=== PATIENT | male | born 1975 | race Caucasian/White ===

== ENCOUNTER 2022-07-13 09:16 | Observation (INO) | payer OTHER ==
[2022-07-13] MEDS ORDERED: SODIUM CHLORIDE 0.9% 500 ML 500 ML IV STA (09:18)
--- NOTE | 2022-07-13 09:28 | ED ---
General Adult HPI - General Stated complaint: Dizziness Time Seen by Provider: 07/13/22 09:16 Source: patient, RN notes reviewed, old records reviewed - History of Present Illness Initial comments: This is a 46-year-old male with past medical history significant for high blood pressure and family history is very strong for coronary artery disease. Patient states he got this morning felt very dizzy and nauseated he eventually went back to bed when he got up later he had it again and he decided to go get checked out by his primary medical care doctor and they noted that he was in bigeminy in that he was only having the irregular QRS complexes perfuse and they believe that this could be leading to his lightheadedness. Patient denies any chest pain or palpitations. Patient denies any difficulty breathing shortest breath. - Related Data Allergies Allergy/AdvReac Type Severity Reaction Status Date / Time No Known Allergies Allergy Verified 07/13/22 09:25 Review of Systems ROS Statement: Those systems with pertinent positive or pertinent negative responses have been documented in the HPI. ROS Other: All systems not noted in ROS Statement are negative. General Exam - General Exam Comments Initial Comments: GENERAL: Patient is well-developed and well-nourished. Patient is nontoxic and well- hydrated and is in mild distress. ENT: Neck is soft and supple. No significant lymphadenopathy is noted. Oropharynx is clear. Moist mucous membranes. Neck has full range of motion without eliciting any pain. EYES: The sclera were anicteric and conjunctiva were pink and moist. Extraocular movements were intact and pupils were equal round and reactive to light. Eyelids were unremarkable. PULMONARY: Unlabored respirations. Good breath sounds bilaterally. No audible rales rhonchi or wheezing was noted. CARDIOVASCULAR: Patient is bradycardic at about 40 beats a minute ABDOMEN: Soft and nontender with normal bowel sounds. SKIN: Skin is clear with no lesions or rashes and otherwise unremarkable. NEUROLOGIC: Patient is alert and oriented x3. Cranial nerves II through XII are grossly intact. Motor and sensory are also intact. Normal speech, volume and content. Symmetrical smile. MUSCULOSKELETAL: Normal extremities with adequate strength and full range of motion. Patient has bilateral 1+ edema LYMPHATICS: No significant lymphadenopathy is noted PSYCHIATRIC: Normal psychiatric evaluation. Course Vital Signs 07/13/22 07/13/22 09:18 09:26 Temperature 98.2 F Pulse Rate 44 L Pulse Rate [ 42 L Left Sitting Radial] Respiratory 18 Rate Blood Pressure 163/82 O2 Sat by Pulse 98 Oximetry Medical Decision Making - Medical Decision Making EKG was interpreted by myself EKG shows sinus rhythm with bigeminy pattern at 84 bpm TX interval is 143 QRS is 97 QT interval 351 QTC is 392. Was pt. sent in by a medical professional or institution (, [employer], CLAIM REPRESENTATIVE, urgent care, hospital, or residential...) When possible be specific @ -Patient was sent in by his primary medical care doctor's office Did you speak to anyone other than the patient for history (EMS, parent, family, police, friend...)? What history was obtained from this source @ -No Did you review nursing and triage notes (agree or disagree)? Why? @ -I reviewed and agree with nursing and triage notes Were old charts reviewed (outside hosp., previous admission, EMS record, old EKG , old radiological studies, urgent care reports/EKG's, residential records)? Report findings @ -I reviewed prior charts on this patient as well as prior lab work and radiological studies Differential Diagnosis (chest pain, altered mental status, abdominal pain women, abdominal pain men, vaginal bleeding, weakness, fever, dyspnea, syncope, headache, dizziness, GI bleed, back pain, seizure, CVA, palpatations, mental health, musculoskeletal)? @ -Differential Dizziness: Benign paroxysmal positional Vertigo, Menieres disease, otitis media, acoustic neuroma, vertebrobasilar insufficiency, cerebellar stroke, encephalitis, hypovolemic, arrhythmia, coronary artery syndrome, anemia, this is not meant to be an all-inclusive list EKG interpreted by me (3pts min.). @ -As above X-rays interpreted by me (1pt min.). @ -Ray was interpreted by myself I saw no acute abnormalities CT interpreted by me (1pt min.). @ -None done U/S interpreted by me (1pt. min.). @ -None done What testing was considered but not performed or refused? (CT, X-rays, U/S, labs)? Why? @ -None What meds were considered but not given or refused? Why? @ -None Did you discuss the management of the patient with other professionals (professionals i.e. , [employer], CLAIM REPRESENTATIVE, lab, RT, psych nurse, social worker health services, link trainer, teacher, air intelligence officer, welfare case worker)? Give summary @ -Spoke with Dr. Segura and he agreed to admit the patient. Was smoking cessation discussed for >3mins.? @ -No Was critical care preformed (if so, how long)? @ -No Were there social determinants of health that impacted care today? How? (Homelessness, low income, unemployed, alcoholism, drug addiction, transportation, low edu. Level, literacy, decrease access to med. care, senior care, rehab)? @ -No Was there de-escalation of care discussed even if they declined (Discuss DNR or withdrawal of care, Hospice)? DNR status @ -No What co-morbidities impacted this encounter? (DM, HTN, Smoking, COPD, CAD, Cancer, CVA, ARF, Chemo, Hep., AIDS, mental health diagnosis, sleep apnea, morbid obesity)? @ -None Was patient admitted / discharged? Hospital course, mention meds given and route, prescriptions, significant lab abnormalities, going to OR and other pertinent info. @ -She remained in bigeminy throughout his ED course. I was unable to palpate the PVCs in between the normal rhythm and so is affective heart rate was about 40. I spoke with Dr. Fischer and he agreed to admit the patient. I wrote admitting orders. I consulted cardiology. Undiagnosed new problem with uncertain prognosis? @ -No Drug Therapy requiring intensive monitoring for toxicity (Heparin, Nitro, Insulin, Cardizem)? @ -No Were any procedures done? @ -No Diagnosis/symptom? @ -Bigeminy Acute, or Chronic, or Acute on Chronic? @ -Acute Uncomplicated (without systemic symptoms) or Complicated (systemic symptoms)? @ -Complicated Side effects of treatment? @ -No Exacerbation, Progression, or Severe Exacerbation? @ -No Poses a threat to life or bodily function? How? (Chest pain, USA, SD, pneumonia, PE, COPD, DKA, ARF, appy, cholecystitis, CVA, Diverticulitis, Homicidal, Suicidal, threat to staff... and all critical care pts) @ -Yes this could lead to syncope which could lead to significant injury. Diagnosis/symptom? @ -Near syncope Acute, or Chronic, or Acute on Chronic? @ -Acute Uncomplicated (without systemic symptoms) or Complicated (systemic symptoms)? @ -Complicated Side effects of treatment? @ -none Exacerbation, Progression, or Severe Exacerbation] @ -no Poses a threat to life or bodily function? @ -no - Lab Data Result diagrams: 07/13/22 09:29 07/13/22 09:29 Lab Results 07/13/22 07/13/22 07/13/22 Range/Units 09:29 09:29 09:29 WBC 4.8 (3.8-10.6) k/uL RBC 5.02 (4.30-5.90) m/uL Hgb 14.0 (13.0-17.5) gm/dL Hct 41.4 (39.0-53.0) % MCV 82.4 (80.0-100.0) fL MCH 27.9 (25.0-35.0) pg MCHC 33.9 (31.0-37.0) g/dL RDW 13.7 (11.5-15.5) % Plt Count 134 L (150-450) k/uL MPV 10.4 Neutrophils % 57 % Lymphocytes % 29 % Monocytes % 5 % Eosinophils % 6 % Basophils % 0 % Neutrophils # 2.7 (1.3-7.7) k/uL Lymphocytes # 1.4 (1.0-4.8) k/uL Monocytes # 0.3 (0-1.0) k/uL Eosinophils # 0.3 (0-0.7) k/uL Basophils # 0.0 (0-0.2) k/uL Sodium 139 (137-145) mmol/L Potassium 4.5 (3.5-5.1) mmol/L Chloride 107 (98-107) mmol/L Carbon Dioxide 20 L (22-30) mmol/L Anion Gap 12 mmol/L BUN 25 H (9-20) mg/dL Creatinine 0.87 (0.66-1.25) mg/dL Est GFR (CKD-EPI)AfAm >90 (>60 ml/min/1.73 sqM) Est GFR (CKD-EPI)NonAf >90 (>60 ml/min/1.73 sqM) Glucose 113 H (74-99) mg/dL Calcium 9.5 (8.4-10.2) mg/dL Magnesium 1.8 (1.6-2.3) mg/dL Total Bilirubin 0.7 (0.2-1.3) mg/dL AST 34 (17-59) U/L ALT 32 (4-49) U/L Alkaline Phosphatase 63 (38-126) U/L Troponin I <0.012 (0.000-0.034) ng/mL Total Protein 7.8 (6.3-8.2) g/dL Albumin 4.4 (3.5-5.0) g/dL TSH 2.030 (0.465-4.680) mIU/L Disposition Clinical Impression: Bigeminy, Near syncope Disposition: ADMITTED IP TO THIS HOSP Referrals: Rj Segura MD [Primary Care Provider] - 1-2 days Time of Disposition: 10:39
[2022-07-13 09:48] LABS: Basophils % (A) 0 %; Eosinophils # (A) 0.3 k/uL (0-0.7); Eosinophils % (A) 6 %; HCT 41.4 % (39.0-53.0); Lymphocytes # (A) 1.4 k/uL (1.0-4.8); Lymphocytes % (A) 29 %; MCH 27.9 pg (25.0-35.0); MCHC 33.9 g/dL (31.0-37.0); MCV 82.4 fL (80.0-100.0); Mean Platelet Volume 10.4; Monocytes # (A) 0.3 k/uL (0-1.0); Monocytes % (A) 5 %; Neutrophils # (A) 2.7 k/uL (1.3-7.7); Neutrophils % (A) 57 %; Platelet Count 134 k/uL (150-450); RBC 5.02 m/uL (4.30-5.90); RDW 13.7 % (11.5-15.5); WBC 4.8 k/uL (3.8-10.6)
[2022-07-13 09:55] LABS: ALT 32 U/L (4-49); AST 34 U/L (17-59); African American GFR (CKD) >90 (>60 ml/min/1.73 sqM); Albumin 4.4 g/dL (3.5-5.0); Alkaline Phosphatase 63 U/L (38-126); Anion Gap 12 mmol/L; Blood Urea Nitrogen 25 mg/dL (9-20); Calcium 9.5 mg/dL (8.4-10.2); Carbon Dioxide 20 mmol/L (22-30); Chloride 107 mmol/L (98-107); Glucose 113 mg/dL (74-99); Magnesium 1.8 mg/dL (1.6-2.3); Non-African American GFR(CKD) >90 (>60 ml/min/1.73 sqM); Potassium 4.5 mmol/L (3.5-5.1); Sodium 139 mmol/L (137-145); Total Bilirubin 0.7 mg/dL (0.2-1.3); Total Protein 7.8 g/dL (6.3-8.2)
--- NOTE | 2022-07-13 09:55 | XR ---
EXAMINATION TYPE: XR chest 2V DATE OF EXAM: 07/13/2022 COMPARISON: Chest x-ray March 28, 2011 HISTORY: Dysrhythmia. TECHNIQUE: Frontal and lateral views of the chest are obtained. FINDINGS: Diminished inspiration. There is no focal air space opacity, pleural effusion, or pneumoth orax seen. The cardiac silhouette size is now enlarged. The osseous structures are intact. IMPRESSION: Cardiomegaly without acute pulmonary process.
[2022-07-13 10:18] LABS: INR 0.9 (<1.2)
[2022-07-13] MEDS ORDERED: NITROGLYCERIN SL TABS 0.4 MG TAB SUBLINGUAL PRN (10:39)
[2022-07-13] MEDS ORDERED: METOPROLOL TARTRATE 5 MG/5 ML VIAL IVP STA (10:41)
[2022-07-13 10:58] LABS: Partial Thromboplastin Time 20.8 sec (22.0-30.0)
[2022-07-13 11:25] LABS: Amphetamine Screen,Urine Not Detected (NotDetected); Barbiturate Screen,Urine Not Detected (NotDetected); Benzodiazepines Screen,Urine Not Detected (NotDetected); Cocaine Screen,Urine Not Detected (NotDetected); Methadone Screen, Urine Not Detected (NotDetected); Opiate Screen,Urine Not Detected (NotDetected); Oxycodone Screen, Urine Not Detected (NotDetected); Phencyclidine Screen,Urine Not Detected (NotDetected); Tricyclic Antidepressant,Urine Not Detected (NotDetected); Urn Cannabinoid Scrn Not Detected (NotDetected)
[2022-07-13] MEDS: LOSARTAN 50 MG TAB PO SCH (15:45)
[2022-07-13] MEDS: CICLOPIROX TOPICAL SCH (15:46)
[2022-07-13] MEDS: NAPROXEN 250 MG TAB PO SCH (21:37)
[2022-07-13] MEDS: PANTOPRAZOLE 40 MG TABLET PO SCH (21:38)
[2022-07-13] MEDS: CHLORTHALIDONE 25 MG TAB PO SCH (21:38)
[2022-07-14] MEDS: NAPROXEN 250 MG TAB PO SCH ×2 (08:06→20:34)
[2022-07-14] MEDS: PANTOPRAZOLE 40 MG TABLET PO SCH ×2 (08:06→20:34)
[2022-07-14] MEDS: LOSARTAN 50 MG TAB PO SCH (08:07)
[2022-07-14] MEDS: ASPIRIN 325 MG TAB PO SCH (08:07)
[2022-07-14] MEDS: amLODIPine 10 MG TAB PO SCH (08:07)
[2022-07-14 10:12] LABS: Chol/HDL Ratio 4.07 Ratio; LDL Cholesterol,Calculated 99.9 mg/dL (0.0-131.0)
--- NOTE | 2022-07-14 14:19 | P.CRDCN ---
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 Patient gives history that he developed dizziness and lightheadedness, nausea and headache yesterday morning. He went to the bathroom, the daughter about and he lay down when he went to get up he was feeling the same symptoms and checked his blood pressure was 195/145. He ended up getting on the bus and went to his primary care doctor's office and waited for them to open at 8 AM yesterday. He was found to have a blood pressure of 1 71 systolic and his EKG was abnormal with carlton and patient was sent over to [facility] emergency center for further evaluation where he was found to be in bigeminy on EKG, initial blood pressure 158/102, heart rate was running in the 40s to 80s. Patient states that about a month ago his amlodipine was increased to 10 mg and when he was in the office on his blood pres sure was high again and Dr. 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 EKG [facility] Chest x-ray: Cardiomegaly without acute pulmonary process Platelet count 139, WBC 4.8, hemoglobin 14. INR 0.9. Potassium 4.5, magnesium 1.8. Troponin negative 3. Triglycerides 123, cholesterol 165, HDL 40. Urine drug screen not detected. Creatinine 0.87. Home cardiac medications: Norvasc 10 mg daily Review Of Systems: At the time of my evaluation: Constitutional: No fever, no chills. No weakness, fatigue or lethargy. EENT: No headache. No dizziness. Lungs: No shortness of breath, cough, no sputum production. No wheezing. Cardiovascular: No chest pain, no lower extremity edema. No palpitations. No paroxysmal nocturnal dyspnea. No orthopnea. No lightheadedness or dizziness. No syncopal episodes. Abdominal: No abdominal pain. No nausea, vomiting. No diarrhea. No constipation. No bloody or tarry stools. Genitourinary: No dysuria.. No urinary retention. Musculoskeletal: No myalgias. No muscle weakness, no frequent falls. No back pain. No neck pain. Integumentary: No wounds. No rash. No unusual bruising. Neurologic: No aphasia. No facial droop. No change in mentation. No head injury. No headache. Physical examination: Gen: This is a obese 46-year-old male. He is resting in bed and appears to be comfortable and in no acute distress VS: reviewed HEENT: Head is atraumatic, normocephalic. Pupils equal, round. Sclerae is anicteric. NECK: Supple. No JVD. . LUNGS: Clear to auscultation. No wheezes or rhonchi. No intercostal retractions. HEART: Regular rate and rhythm. No murmur. ABDOMEN: Soft No tenderness. EXTREMITIES: No pedal edema. No calf tenderness. NEUROLOGICAL: Patient is awake, alert and oriented x3. Assessment: Near syncope PVCs Uncontrolled hypertension Plan: Continue patient's current blood pressure medications Obtain 2-D echocardiogram and Doppler study to assess cardiac structure and function If echocardiogram is within normal limits, patient is cleared for discharge home and may follow-up in the office for outpatient stress testing. Thank you kindly for this consultation. Nurse practitioner note has been reviewed, I agree with documented findings and plan of care. Patient was seen and examined. Past Medical History Past Medical History: GERD/Reflux, Hypertension Additional Past Medical History / Comment(s): Hematuria, lower back pain, anxiety, bigeminy rhythm on 07/13/22, History of Any Multi-Drug Resistant Organisms: None Reported Additional Past Surgical History / Comment(s): tooth extraction Past Anesthesia/Blood Transfusion Reactions: No Reported Reaction Past Psychological History: Anxiety Smoking Status: Former smoker Past Alcohol Use History: None Reported Past Drug Use History: None Reported - Past Family History Mother Family Medical History: Coronary Artery Disease (CAD), Diabetes Mellitus, Renal Disease Additional Family Medical History / Comment(s): CABG Father Family Medical History: Coronary Artery Disease (CAD) Additional Family Medical History / Comment(s): CABG Medications and Allergies Home Medications Medication Instructions Recorded Confirmed Type Chlorthalidone [Hygroton] 25 mg PO DIRECTED 07/13/22 07/13/22 History Ciclopirox 1 applic TOPICAL DIRECTED 07/13/22 07/13/22 History Cyclobenzaprine [Flexeril] 10 mg PO DIRECTED 07/13/22 07/13/22 History Losartan Potassium 50 mg PO DIRECTED 07/13/22 07/13/22 History Naproxen [Naprosyn] 500 mg PO BID 07/13/22 07/13/22 History Omeprazole [PriLOSEC] 20 mg PO BID 07/13/22 07/13/22 History amLODIPine [Norvasc] 10 mg PO DAILY 07/13/22 07/13/22 History Allergies Allergy/AdvReac Type Severity Reaction Status Date / Time blueberry Allergy Unknown Verified 07/13/22 11:32 grapefruit Allergy Unknown Verified 07/13/22 11:32 Physical Exam Vitals: Vital Signs Temp Pulse Pulse Resp BP BP Pulse Ox 07/14/22 08:07 97 07/14/22 08:00 98 F 77 18 149/76 99 07/14/22 03:00 98.4 F 69 18 124/84 98 07/14/22 02:35 72 18 113/50 07/14/22 00:42 66 16 114/65 07/13/22 23:00 68 19 147/82 07/13/22 20:00 97.9 F 74 20 164/100 97 07/13/22 18:26 98.0 F 81 18 125/75 97 07/13/22 17:00 73 18 97 07/13/22 15:42 68 18 127/80 95 07/13/22 14:24 73 18 129/86 97 07/13/22 12:52 79 18 139/79 97 07/13/22 12:20 89 18 120/90 99 07/13/22 11:25 84 18 158/102 96 FiO2 07/14/22 08:07 21 07/14/22 08:00 07/14/22 03:00 07/14/22 02:35 07/14/22 00:42 07/13/22 23:00 07/13/22 20:00 07/13/22 18:26 07/13/22 17:00 07/13/22 15:42 07/13/22 14:24 07/13/22 12:52 07/13/22 12:20 07/13/22 11:25 Intake and Output 07/13/22 07/14/22 07/14/22 22:59 06:59 14:59 Intake Total 118 Balance 118 Intake: Oral 118 Other: Weight 144.696 kg Results 07/13/22 09:29 07/13/22 09:29 Cardiac Enzymes 07/13/22 07/13/22 Range/Units 12:28 16:18 Troponin I <0.012 <0.012 (0.000-0.034) ng/mL Lipids 07/13/22 Range/Units 09:29 Triglycerides 123.00 (0.00-149.00) mg/dL Cholesterol 165.00 (0.00-200.00) mg/dL HDL Cholesterol 40.50 (40.00-60.00) mg/dL Cholesterol/HDL Ratio 4.07 Ratio Current Medications Generic Name Dose Route Start Last Admin Trade Name Freq PRN Reason Stop Dose Admin Amlodipine Besylate 10 mg 07/14/22 09:00 07/14/22 08:07 Amlodipine 10 Mg Tab PO 10 mg DAILY DEJAH Administration Aspirin 325 mg 07/14/22 09:00 07/14/22 08:07 Aspirin 325 Mg Tab PO 325 mg DAILY DEJAH Administration Chlorthalidone 25 mg 07/13/22 21:00 07/13/22 21:38 Chlorthalidone 25 Mg Tab PO 25 mg HS DEJAH Administration Losartan Potassium 50 mg 07/13/22 15:30 07/14/22 08:07 Losartan 50 Mg Tab PO 50 mg DAILY DEJAH Administration Naproxen 500 mg 07/13/22 21:00 07/14/22 08:06 Naproxen 250 Mg Tab PO 500 mg BID DEJAH Administration Nitroglycerin 0.4 mg 07/13/22 10:39 Nitroglycerin Sl Tabs 0.4 Mg Tab SUBLINGUAL Q5M PRN Chest Pain Patients Own ( 1 applic 07/13/22 15:30 07/13/22 15:46 Ciclopirox [ TOPICAL Not Given Ciclopirox] 6.6 Ml DIRECTED DEJAH Ml) Pantoprazole Sodium 40 mg 07/13/22 21:00 07/14/22 08:06 Pantoprazole 40 Mg Tablet PO 40 mg BID DEJAH Administration Intake and Output 07/13/22 07/14/22 07/14/22 22:59 06:59 14:59 Intake Total 118 Balance 118 Intake: Oral 118 Other: Weight 144.696 kg 07/13/22 09:29 07/13/22 09:29
[2022-07-14] MEDS: CICLOPIROX TOPICAL SCH (16:36)
[2022-07-14] MEDS: CHLORTHALIDONE 25 MG TAB PO SCH (20:34)
[2022-07-15] MEDS: NAPROXEN 250 MG TAB PO SCH ×2 (09:25→21:00)
[2022-07-15] MEDS: ASPIRIN 325 MG TAB PO SCH (09:25)
[2022-07-15] MEDS: LOSARTAN 50 MG TAB PO SCH (09:25)
[2022-07-15] MEDS: PANTOPRAZOLE 40 MG TABLET PO SCH ×2 (09:25→21:01)
[2022-07-15] MEDS: amLODIPine 10 MG TAB PO SCH (09:25)
--- NOTE | 2022-07-15 09:31 | CA ---
Transthoracic Echo Report Name: Russell Patel Age: 46 Gender: M : 1975 Exam Date: 07/14/2022 14:45 Exam Location: [facility] Ht (in): 76 Wt (lb): 320 Ordering Physician: Kristina Wall Attending/Referring Phys: [id number], [facility] Director Quality Systems Julia Lockhart RDCS Procedure CPT: Indications: LVF Cardiac Hx: Technical Quality: Technically difficult study Contrast 1: Lumason Total Dose (mL): Contrast 2: Total Dose (mL): MEASUREMENTS (Male / Female) Normal Values 2D ECHO LV Diastolic Diameter PLAX 6.7 cm 4.2 - 5.9 / 3.9 - 5.3 cm LV Systolic Diameter PLAX 5.4 cm IVS Diastolic Thickness 1.2 cm 0.6 - 1.0 / 0.6 - 0.9 cm LVPW Diastolic Thickness 1.1 cm 0.6 - 1.0 / 0.6 - 0.9 cm LV Relative Wall Thickness 0.3 RV Internal Dim ED PLAX 3.4 cm LA Systolic Diameter LX 4.3 cm 3.0 - 4.0 / 2.7 - 3.8 cm LV Diastolic Volume MOD BP 201.6 cm??? 67 - 155 / 56 - 104 cm??? LV Systolic Volume MOD BP 96.6 cm??? 22 - 58 / 19 - 49 cm??? LV Ejection Fraction MOD BP 52.1 % >= 55 % LV Diastolic Volume MOD 4C 225.1 cm??? LV Systolic Volume MOD 4C 132.5 cm??? LV Ejection Fraction MOD 4C 41.2 % LV Diastolic Length 4C 8.6 cm LV Systolic Length 4C 6.6 cm LV Diastolic Volume MOD 2C 180.1 cm??? LV Systolic Volume MOD 2C 67.7 cm??? LV Ejection Fraction MOD 2C 62.4 % LV Diastolic Length 2C 8.7 cm LV Systolic Length 2C 6.3 cm LA Volume 80.7 cm??? 18 - 58 / 22 - 52 cm??? M-MODE Aortic Root Diameter MM 3.1 cm MV E Point Septal Separation 1.6 cm AV Cusp Separation MM 2.5 cm DOPPLER AV Peak Velocity 189.2 cm/s AV Peak Gradient 14.3 mmHg AV Mean Velocity 136.7 cm/s AV Mean Gradient 8.6 mmHg AV Velocity Time Integral 37.2 cm MV Area PHT 2.5 cm??? Mitral E Point Velocity 86.0 cm/s Mitral A Point Velocity 97.6 cm/s Mitral E to A Ratio 0.9 MV Deceleration Time 305.0 ms MV E' Velocity 8.2 cm/s Mitral E to MV E' Ratio 10.5 TR Peak Velocity 231.1 cm/s TR Peak Gradient 21.4 mmHg Right Ventricular Systolic Press 26.4 mmHg FINDINGS Left Ventricle Left ventricular ejection fraction is estimated at 35-40 %. Mildly increased septal wall thickness. Moderately increased left ventricular diastolic diameter. Severely increased left ventricular diastolic volume. Severely increased left ventricular systolic volume. Moderatly decreased left ventricular ejection fraction. Right Ventricle Mild right ventricular dilatation. Right ventricular systolic pressure within normal limits. Right Atrium Right atrium not well visualized. Left Atrium Mildly increased left atrial diameter. Severely increased left atrial volume. Mildly increased left atrial area. Mitral Valve Structurally normal mitral valve. No mitral stenosis, regurgitation or prolapse. Aortic Valve Trileaflet aortic valve. Thickened aortic valve without stenosis. Tricuspid Valve Structurally normal tricuspid valve. Trace to mild tricuspid regurgitation. Pulmonic Valve Structurally normal pulmonic valve. Trace to mild pulmonic regurgitation. Pericardium Normal pericardium. No pericardial effusion. Aorta Normal size aortic root and proximal ascending aorta. CONCLUSIONS Moderate LV systolic dysfunction with an ejection fraction of 35-40% Dilated left atrium Previewed by: Dr. Hola Lott MD (Electronically Signed) Final Date: 15 Jul 2022 09:30
--- NOTE | 2022-07-15 13:49 | P.PN ---
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 Patient gives history that he developed dizziness and lightheadedness, nausea and headache yesterday morning. He went to the bathroom, the daughter about and he lay down when he went to get up he was feeling the same symptoms and checked his blood pressure was 195/145. He ended up getting on the bus and went to his primary care doctor's office and waited for them to open at 8 AM yesterday. He was found to have a blood pressure of 171 systolic and his EKG was abnormal with bigeminy and patient was sent over to [facility] emergency center for further evaluation where he was found to be in bigeminy on EKG, initial blood pressure 158/102, heart rate was r unning in the 40s to 80s. Patient states that about a month ago his amlodipine was increased to 10 mg and when he was in the office on his blood pressure was high again and Dr. 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 EKG bigeminy Chest x-ray: Cardiomegaly without acute pulmonary process Platelet count 139, WBC 4.8, hemoglobin 14. INR 0.9. Potassium 4.5, magnesium 1.8. Troponin negative 3. Triglycerides 123, cholesterol 165, HDL 40. Urine drug screen not detected. Creatinine 0.87. Home cardiac medications: Norvasc 10 mg daily 07/15 Patient is seen today in follow-up. He states he does not have any symptoms, no chest pain, shortness of breath, no lightheadedness or dizziness. He states he has been ambulating in his room. Telemetry is a sinus rhythm with continued episodes of bigeminy and one episode yesterday of trigeminy. Echocardiogram reveals EF of 35-40% with dilated LA. Physical examination: Gen: This is a obese 46-year-old male. He is resting in bed and appears to be comfortable and in no acute distress VS: reviewed HEENT: Head is atraumatic, normocephalic. Pupils equal, round. Sclerae is anicteric. NECK: Supple. No JVD. . LUNGS: Clear to auscultation. No wheezes or rhonchi. No intercostal retractions. HEART: Regular rate and rhythm. No murmur. ABDOMEN: Soft No tenderness. EXTREMITIES: No pedal edema. No calf tenderness. NEUROLOGICAL: Patient is awake, alert and oriented x3. Assessment: Near syncope PVCs, bigeminy Reduced ejection fraction of 35-40% and dilated LA Uncontrolled hypertension Plan: Continue patient's current blood pressure medications Patient will be scheduled for cardiac catheterization this week. Possible, this will be done tomorrow with Dr. Leon if not we will schedule for Saturday and make arrangements for this. Patient will be made nothing by mouth for Saturday night in anticipation of possible cardiac catheterization Saturday. Thank you kindly for this consultation. Nurse practitioner note has been reviewed, I agree with documented findings and plan of care. Patient was seen and examined. Objective - Vital Signs Vital signs: Vital Signs Temp 97.9 F 07/15/22 08:25 Pulse 97 07/15/22 08:25 Resp 16 07/15/22 08:25 BP 134/88 07/15/22 08:25 Pulse Ox 99 07/15/22 08:25 FiO2 21 07/14/22 08:07 Intake & Output 07/14/22 07/15/22 07/15/22 18:59 06:59 18:59 Intake Total 354 358 Balance 354 358 Intake: Oral 354 358 Other: # Bowel Movements 0 - Labs CBC & Chem 7: 07/13/22 09:29 07/13/22 09:29
[2022-07-15] MEDS: METOPROLOL SUCCINATE (ER) 25 MG TAB.ER.24H PO SCH (13:54)
[2022-07-15] MEDS: CICLOPIROX TOPICAL SCH (14:40)
[2022-07-15] MEDS: CHLORTHALIDONE 25 MG TAB PO SCH (21:00)
[2022-07-16] MEDS: LOSARTAN 50 MG TAB PO SCH (06:17)
[2022-07-16] MEDS: ASPIRIN 325 MG TAB PO SCH (06:17)
[2022-07-16] MEDS: PANTOPRAZOLE 40 MG TABLET PO SCH (06:18)
[2022-07-16] MEDS: METOPROLOL SUCCINATE (ER) 25 MG TAB.ER.24H PO SCH (06:18)
[2022-07-16] MEDS: NAPROXEN 250 MG TAB PO SCH (06:18)
[2022-07-16] MEDS ORDERED: ASPIRIN 325 MG TAB PO STA (07:46)
[2022-07-16] MEDS ORDERED: ALPRAZolam 0.25 MG TAB PO PRN (07:46)
[2022-07-16] MEDS ORDERED: NITROGLYCERIN SL TABS 0.4 MG TAB SUBLINGUAL PRN (07:46)
[2022-07-16] MEDS ORDERED: ATORVASTATIN 80 MG TAB PO STA (07:46)
[2022-07-16] MEDS ORDERED: ALPRAZolam 0.5 MG TAB PO PRN (07:46)
[2022-07-16] MEDS ORDERED: amLODIPine 5 MG TAB PO SCH (09:00)
[2022-07-16] MEDS ORDERED: IV FLUID CONTINUATION 1,000 ML IV ONE (09:45)
[2022-07-16] MEDS ORDERED: MIDAZOLAM 2 MG/2 ML VIAL IV ONE (10:16)
[2022-07-16] MEDS ORDERED: LIDOCAINE 1% INJ 10MG/ML (5 ML VIAL-PF) SQ ONE (10:24)
[2022-07-16] MEDS ORDERED: HEPARIN SODIUM 1,000 UN/ML (10ML VL) ONE (10:27)
[2022-07-16] MEDS ORDERED: VERAPAMIL SYRINGE (5 MG/10 ML) INTRAARTER ONE (10:28)
[2022-07-16] MEDS ORDERED: HEPARIN SODIUM 1,000 UN/ML (10ML VL) IV ONE (10:29)
[2022-07-16] MEDS ORDERED: fentaNYL (PF) 50 MCG/ML 2 ML AMP ONE (10:30)
[2022-07-16] MEDS ORDERED: fentaNYL (PF) 50 MCG/ML 2 ML AMP IV ONE ×2 (10:31)
[2022-07-16] MEDS ORDERED: IOPAMIDOL-370 100ML BTL INJ ONE (10:36)
[2022-07-16] MEDS ORDERED: RX INFO: IV CONTRAST WAS GIVEN 1 EACH MISC MISCELLANE PRN (10:44)
[2022-07-16] MEDS ORDERED: SODIUM CHLORIDE 0.9% 1,000 ML IV SCH (10:45)
--- NOTE | 2022-07-16 10:50 | P.PCN ---
Date of Procedure: 07/16/22 Operative Findings: CARDIAC CATHETERIZATION PERFORMING PHYSICIAN: Willam Leon MD, RPVI PROCEDURE PERFORMED: 1. Selective right and left coronary angiogram 2. Left heart catheterization 3. Ultrasound guided access of the right radial artery INDICATION: cardiomyopathy COMPLICATION: None APPROACH: Right radial artery LEVEL OF SEDATION: Moderate with a sedation length of 14 minutes PROCEDURE DESCRIPTION: After obtaining an informed consent, the patient was brought to cardiac cathode washer. Local anesthesia was performed using lidocaine subcutaneously. The right radial artery was cannulated using Seldinger technique, the guidewire passed easily, following that we advanced a 5-Greek sheath dilator assembly, the wire and dilator were removed and sheath was flushed. Following that, 2 mg of verapamil along with 5000 unit heparin were given. Selective right and left coronary angiogram using a 6-Greek JR4 and JL 3.5 catheters. Following that we did left heart catheterization using 6-Greek pigtail catheter. The procedure was completed there was no complication. SELECTIVE CORONARY ANGIOGRAM: The right coronary artery: large-caliber vessel and a dominant vessel and normal Left main: is normal The left circumflex: nondominant vessel and angiographically normal. Gives rises into OM1 and OM 2 and both are normal The left anterior descending artery: is angiographically normal. Gives rises into the first and second diagonal branches both appeared to be angiographically normal HEMODYNAMICS: the LVEDP was only 1 mmHg CONCLUSION: 1. normal coronary angiogram 2. low left sided filling pressure POSTPROCEDURE MANAGEMENT: medical treatment
--- NOTE | 2022-07-16 10:51 | P.PN ---
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 Patient gives history that he developed dizziness and lightheadedness, nausea and headache yesterday morning. He went to the bathroom, the daughter about and he lay down when he went to get up he was feeling the same symptoms and checked his blood pressure was 195/145. He ended up getting on the bus and went to his primary care doctor's office and waited for them to open at 8 AM yesterday. He was found to have a blood pressure of 171 systolic and his EKG was abnormal with bigeminy and patient was sent over to [facility] emergency center for further evaluation where he was found to be in bigeminy on EKG, initial blood pressure 158/102, heart rate was r unning in the 40s to 80s. Patient states that about a month ago his amlodipine was increased to 10 mg and when he was in the office on his blood pressure was high again and Dr. 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 EKG bigeminy Chest x-ray: Cardiomegaly without acute pulmonary process Platelet count 139, WBC 4.8, hemoglobin 14. INR 0.9. Potassium 4.5, magnesium 1.8. Troponin negative 3. Triglycerides 123, cholesterol 165, HDL 40. Urine drug screen not detected. Creatinine 0.87. Home cardiac medications: Norvasc 10 mg daily 07/15 Patient is seen today in follow-up. He states he does not have any symptoms, no chest pain, shortness of breath, no lightheadedness or dizziness. He states he has been ambulating in his room. Telemetry is a sinus rhythm with continued episodes of bigeminy and one episode yesterday of trigeminy. Echocardiogram reveals EF of 35-40% with dilated LA. 07/16 Patient denies having any chest pain, shortness of breath, palpitations, lightheadedness or dizziness. Heart rate is in the 60s to 80s, blood pressure 111/76, pulse ox 95% on room air. Patient is still having episodes of bigeminy and trigeminy. Physical examination: Gen: This is a obese 46-year-old male. He is resting in bed and appears to be comfortable and in no acute distress VS: reviewed HEENT: Head is atraumatic, normocephalic. Pupils equal, round. Sclerae is anicteric. NECK: Supple. No JVD. . LUNGS: Clear to auscultation. No wheezes or rhonchi. No intercostal retractions. HEART: Regular rate and rhythm. No murmur. ABDOMEN: Soft No tenderness. EXTREMITIES: No pedal edema. No calf tenderness. NEUROLOGICAL: Patient is awake, alert and oriented x3. Assessment: Near syncope PVCs, bigeminy Reduced ejection fraction of 35-40% and dilated LA Uncontrolled hypertension Plan: Continue patient's current blood pressure medications Patient will be scheduled for cardiac catheterization today with Dr. Leon. Further recommendations as patient progresses. Nurse practitioner note has been reviewed, I agree with documented findings and plan of care. Patient was seen and examined. Objective - Vital Signs Vital signs: Vital Signs Temp 98.0 F 07/16/22 07:38 Pulse 65 07/16/22 07:38 Resp 16 07/16/22 07:38 BP 111/76 07/16/22 07:38 Pulse Ox 97 07/16/22 08:24 FiO2 21 07/14/22 08:07 Intake & Output 07/15/22 07/16/22 07/16/22 18:59 06:59 18:59 Intake Total 576 Balance 576 Intake: Oral 576 Other: Voiding Method Toilet # Bowel Movements 0 - Labs CBC & Chem 7: 07/13/22 09:29 07/13/22 09:29
[2022-07-16] MEDS: CICLOPIROX TOPICAL SCH (10:59)
[2022-07-16 15:54] VITALS: BP 111/53; PULSE 63; RESP 16; TEMP 98.2
--- NOTE | 2022-07-16 20:47 | DS ---
DISCHARGE SUMMARY CHIEF COMPLAINT: Palpitations and hypertension. HISTORY OF PRESENT ILLNESS AND PHYSICAL EXAMINATION: Details of this man's history and physical can be found in the initial workup. LABORATORY STUDIES: While he was in the hospital, he had laboratory studies, details of which can be found in the laboratory section of his chart. COURSE IN THE HOSPITAL: After admission, he was placed on bedrest, started intravenous fluids and placed on telemetry. He was seen by Cardiology. His blood pressure came down and his PVCs stopped. When the of the week came around, he was taken for cardiac cath, which was reported as normal. Cardiology felt that he could leave the hospital on the evening of the . FINAL DIAGNOSES: 1. Hypertension. 2. Bigeminal PVCs. OPERATION: Cardiac cath. CONSULTATIONS: Cardiology. He is improved. MMDAMIÁNL / TAYN: [id number] /
--- NOTE | 2022-07-16 22:23 | HP ---
HISTORY AND PHYSICAL LOCATION: 382. CHIEF COMPLAINT: High blood pressure and bigeminy. HISTORY OF PRESENT ILLNESS: This is a first known admission for this 46-year-old male. He presented to the office with bigeminy and elevated blood pressure with systolic 195, and he was sent to the hospital. He denies chest pain, diaphoresis, dizziness, syncope, etc. He was slightly nauseated. REVIEW OF SYSTEMS: Otherwise, noncontributory and unremarkable. Past medical history, family history, and personal and social histories are unremarkable and noncontributory otherwise. PHYSICAL EXAMINATION: VITAL SIGNS: Blood pressure 195/95 with a pulse of 94, respirations of 35. He is afebrile. GENERAL: He appeared to be in no acute distress. SKIN: Color is normal. Skin is warm and dry. LYMPHATICS: Lymph nodes are not enlarged. HEAD, EARS, EYES, NOSE, MOUTH, AND THROAT: Normal. NECK: Neck veins are not distended. Thyroid is not enlarged. CHEST: Clear. CARDIAC: Normal. ABDOMEN: Soft and nontender. EXTREMITIES: Normal. IMPRESSION: 1. Bigeminy. 2. Hypertension. PLAN: 1. Bed rest. 2. IV fluids. 3. Serial EKGs and enzymes. 4. Cardiology consult. MMODL / IJN: [id number] /
--- NOTE | 2022-07-16 22:25 | PN ---
PROGRESS NOTE DATE OF SERVICE: 07/14/2022 CHIEF COMPLAINT: Hypertension and bigeminy. HISTORY OF PRESENT ILLNESS: This gentleman is doing well today. He has had no chest pain or shortness of breath. PVCs have diminished, and his blood pressure is down into a normal range. PHYSICAL EXAMINATION: VITAL SIGNS: Blood pressure 163/82 with a pulse of 81, respirations of 27, and he is afebrile. GENERAL: He appeared to be in no acute distress. SKIN: Color is normal. Skin is warm and dry. LYMPHATICS: Lymph nodes are not enlarged. HEAD, EARS, EYES, NOSE, MOUTH, AND THROAT: Normal. NECK: Neck veins are not distended. Thyroid is not enlarged. CHEST: Clear. CARDIAC: Normal. ABDOMEN: Soft and nontender. IMPRESSION: 1. Premature ventricular contractions. 2. Hypertension. PLAN: Cardiology has further studies planned and will increase his activity. MMODL / IJN: [id number] /
--- NOTE | 2022-07-17 06:29 | PN ---
PROGRESS NOTE DATE OF SERVICE: 07/15/2022 CHIEF COMPLAINT: Bigeminy. SUBJECTIVE: This is a gentleman who is doing well. He is stable. He has not had any further arrhythmias. He has had no dizziness, shortness of breath, difficulty with his vital signs, etc. OBJECTIVE: VITAL SIGNS: Normal. CHEST: Clear. CARDIAC: Normal. ABDOMEN: Soft, nontender. IMPRESSION: 1. History of hypertension. 2. Bigeminy. PLAN: Cardiology has further studies. Plan for the first of the week. MMODL / IJN: [id number] /
[2022-07-17] MEDS ORDERED: HEPARIN SODIUM,PORCINE 10,000 UNIT in SODIUM CHLORIDE 0.9% 1,000 ML IRRIGATION PRN (07:00)
[2022-07-17] MEDS ORDERED: HEPARIN SODIUM,PORCINE (1 ML) 2,500 UNIT in SODIUM CHLORIDE 0.9% 250 ML IRRIGATION PRN (07:00)
== END 2022-07-16 18:03 | disposition home or self-care (01) ==
LOC: EC 09:16 → 3SCARD 11:04
PROVIDERS: ADMIT Family Medicine; ATTEND Family Medicine
DX: I42.9 Cardiomyopathy, unspecified (principal); I49.3 Ventricular premature depolarization; R55 Syncope and collapse; R00.8 Other abnormalities of heart beat; R11.0 Nausea; R51.9 Headache, unspecified; I10 Essential (primary) hypertension; E66.9 Obesity, unspecified; Z68.38 Body mass index [BMI] 38.0-38.9, adult; K21.9 Gastro-esophageal reflux disease without esophagitis; F41.9 Anxiety disorder, unspecified; Z87.891 Personal history of nicotine dependence; Z79.899 Other long term (current) drug therapy; Z82.49 Family history of ischemic heart disease and other diseases of the circulatory system; Z91.018 Allergy to other foods
CPT/HCPCS: 96360; 96372; 99285; 36415; 94760 ×2; 93005; 93458; 76937; 80061; 80053; 83735; 84443; 84484; 85025; 85610; 85730; 80306; 71046; G0378 ×4; C8929; C1769; C1894; J2250; J2001; J3010; J1644; Q9950; Q9967; 93306

== ENCOUNTER 2022-07-26 13:55 | Observation (INO) | payer OTHER ==
[2022-07-26] MEDS ORDERED: SODIUM CHLORIDE 0.9% 1,000 ML IV STA (14:33)
[2022-07-26] MEDS ORDERED: SODIUM CHLORIDE 0.9% 500 ML 500 ML IV STA (14:33)
[2022-07-26] MEDS ORDERED: ONDANSETRON 4 MG/2 ML VIAL IVP STA (14:33)
--- NOTE | 2022-07-26 14:34 | ED ---
Dizziness HPI - General Chief Complaint: Dizziness Stated Complaint: dizziness Time Seen by Provider: 07/26/22 14:02 Source: patient, EMS, RN notes reviewed, old records reviewed Mode of arrival: EMS Limitations: no limitations - History of Present Illness Initial Comments: This is a 46-year-old male the ER today. He is presented today for evaluation r egards to not feeling well lightheadedness dizziness weakness feels palpitations. Patient has recent inpatient hospitalization with cardiac catheterization which she believes was normal. Patient recently for a heart monitor which she also is normal. Patient otherwise no new complaints. Occasional chest pains. Mild shortness of breath prior which is resolved. Patient's heart rate medication was increased, he is unsure of medication overdose MD Complaint: dizziness, lightheadedness, other (Palpitations) -: hour(s) Timing: sudden onset Description: lightheadedness, near-syncope History of Same: Yes History of Trauma: No Severity: moderate Improves With: remaining still Worsens With: nothing Associated Symptoms: shortness of breath, weakness - Related Data Home Medications Medication Instructions Recorded Confirmed Chlorthalidone [Hygroton] 25 mg PO HS 07/13/22 07/26/22 Ciclopirox 1 applic TOPICAL BID 07/13/22 07/26/22 Cyclobenzaprine [Flexeril] 10 mg PO HS 07/13/22 07/26/22 Losartan Potassium 50 mg PO DAILY 07/13/22 07/26/22 Naproxen [Naprosyn] 500 mg PO BID 07/13/22 07/26/22 Omeprazole [PriLOSEC] 20 mg PO BID 07/13/22 07/26/22 amLODIPine [Norvasc] 10 mg PO DAILY 07/13/22 07/26/22 Previous Rx's Medication Instructions Recorded Aspirin 325 mg PO DAILY #100 tab 07/16/22 Metoprolol Succinate (ER) [Toprol 25 mg PO DAILY #30 tab 07/16/22 XL] Allergies Allergy/AdvReac Type Severity Reaction Status Date / Time blueberry Allergy Unknown Verified 07/26/22 15:12 grapefruit Allergy Unknown Verified 07/26/22 15:12 Review of Systems ROS Statement: Those systems with pertinent positive or pertinent negative responses have been documented in the HPI. ROS Other: All systems not noted in ROS Statement are negative. Past Medical History Past Medical History: GERD/Reflux, Hypertension Additional Past Medical History / Comment(s): Hematuria, lower back pain, anxiety, bigeminy rhythm on 07/13/22, History of Any Multi-Drug Resistant Organisms: None Reported Additional Past Surgical History / Comment(s): tooth extraction, Heart catheterization (june 2022) Past Anesthesia/Blood Transfusion Reactions: No Reported Reaction Past Psychological History: Anxiety Smoking Status: Former smoker Past Alcohol Use History: None Reported Past Drug Use History: None Reported - Past Family History Mother Family Medical History: Coronary Artery Disease (CAD), Diabetes Mellitus, Renal Disease Additional Family Medical History / Comment(s): CABG Father Family Medical History: Coronary Artery Disease (CAD) Additional Family Medical History / Comment(s): CABG General Exam Limitations: no limitations General appearance: alert, in no apparent distress Head exam: Present: atraumatic, normocephalic, normal inspection Eye exam: Present: normal appearance, PERRL, EOMI. Absent: scleral icterus, conjunctival injection, periorbital swelling ENT exam: Present: normal exam, mucous membranes moist Neck exam: Present: normal inspection. Absent: tenderness, meningismus, lymphadenopathy Respiratory exam: Present: normal lung sounds bilaterally. Absent: respiratory distress, wheezes, rales, rhonchi, stridor Cardiovascular Exam: Present: regular rate, normal rhythm, normal heart sounds. Absent: systolic murmur, diastolic murmur, rubs, gallop, clicks GI/Abdominal exam: Present: soft, normal bowel sounds. Absent: distended, tenderness, guarding, rebound, rigid Extremities exam: Present: normal inspection, full ROM, normal capillary refill. Absent: tenderness, pedal edema, joint swelling, calf tenderness Back exam: Present: normal inspection Neurological exam: Present: alert, oriented X3, CN II-XII intact Psychiatric exam: Present: normal affect, normal mood Skin exam: Present: warm, dry, intact, normal color. Absent: rash Course Vital Signs 07/26/22 07/26/22 13:57 16:03 Temperature 97.7 F Pulse Rate 79 64 Respiratory 20 20 Rate Blood Pressure 138/121 134/54 O2 Sat by Pulse 98 98 Oximetry - Reevaluation(s) Reevaluation #1: 07/26/22 16:24 Medical records reviewed Reevaluation #2: 07/26/22 16:24 Patient has no change in symptoms here in the ER, frequency of PVC has increased Reevaluation #3: 07/26/22 16:24 Patient informed results as well as patient's mother Reevaluation #4: 07/26/22 16:24 Was pt. sent in by a medical professional or institution? @ -no Did you speak to anyone other than the patient for history? @ -no Did you review nursing and triage notes? @ -agree Were old charts reviewed? @ -no Differential Diagnosis? @ -prior EKG interpreted by me (3pts min.)? @ -yes X-rays interpreted by me (1pt min.)? @ -yes CT interpreted by me (1pt min.)? @ -no U/S interpreted by me (1pt. min.)? @ -no What testing was considered but not performed? (CT, X-rays, U/S, labs)? Why? @ -no What meds were considered but not given? Why? @ -no Did you discuss the management of the patient with other professionals? @ -no Did you reconcile home meds? @ -no Was smoking cessation discussed for >3mins.? @ -no Was critical care preformed (if so, how long)? @ -no Were there social determinants of health that impacted care today? How? (Homelessness, low income, unemployed, alcoholism, drug addiction, transportation, low edu. Level, literacy, decrease access to med. care, shelter, rehab)? @ -no Was there de-escalation of care discussed even if they declined? (Discuss DNR or withdrawal of care, Hospice)? @ -no What co-morbidities impacted this encounter? (DM, HTN, Smoking, COPD, CAD, C ancer, CVA, Hep., AIDS, mental health diagnosis, sleep apnea, morbid obesity)? @ -none Was patient admitted / discharged? @ - Undiagnosed new problem with uncertain prognosis? @ -no Drug Therapy requiring intensive monitoring for toxicity (Heparin, Nitro, Insulin, Cardizem)? @ -no Were any procedures done? @ -no Diagnosis/symptom? @ -] Acute, or Chronic, or Acute on Chronic? @ -no Uncomplicated (without systemic symptoms) or Complicated (systemic symptoms)? @ -uncomplicated Side effects of treatment? @ -no Exacerbation, Progression, or Severe Exacerbation] @ -no Poses a threat to life or bodily function? @ -no Reevaluation #5: 07/26/22 16:24 Differential Dizziness: Benign paroxysmal positional Vertigo, Menieres disease, otitis media, acoustic neuroma, vertebrobasilar insufficiency, cerebellar stroke, encephalitis, hypovolemic, arrhythmia, coronary artery syndrome, anemia, this is not meant to be an all-inclusive list EKG Findings - EKG Comments: EKG Findings:: EKG is sinus 81 GA 148 QRS 102 QTC 4:15 and covered by me with significant PVCs Medical Decision Making - Medical Decision Making 46 male to the ER today. Patient presents today for evaluation regards to dizziness lightheadedness and recent evaluation in inpatient hospitalization for same. Patient does have an increased frequency of PVCs here in the ER, every other beat is a PVC. Patient be admitted for cardiology to see - Lab Data Result diagrams: 07/26/22 14:37 07/26/22 14:37 Lab Results 07/26/22 07/26/22 07/26/22 Range/Units 14:37 14:37 14:37 WBC 6.6 (3.8-10.6) k/uL RBC 4.94 (4.30-5.90) m/uL Hgb 13.7 (13.0-17.5) gm/dL Hct 40.2 (39.0-53.0) % MCV 81.3 (80.0-100.0) fL MCH 27.7 (25.0-35.0) pg MCHC 34.1 (31.0-37.0) g/dL RDW 13.2 (11.5-15.5) % Plt Count 143 L (150-450) k/uL MPV 11.7 Neutrophils % (Manual) 76 % Lymphocytes % (Manual) 17 % Monocytes % (Manual) 5 % Eosinophils % (Manual) 2 % Neutrophils # (Manual) 5.02 (1.3-7.7) k/uL Lymphocytes # (Manual) 1.12 (1.0-4.8) k/uL Monocytes # (Manual) 0.33 (0-1.0) k/uL Eosinophils # (Manual) 0.13 (0-0.7) k/uL Nucleated RBCs 0 (0-0) /100 WBC Manual Slide Review Performed Large Platelets Present Tear Drop Cells Present PT 10.2 (9.0-12.0) sec INR 1.0 (<1.2) APTT 23.2 (22.0-30.0) sec Sodium 138 (137-145) mmol/L Potassium 3.8 (3.5-5.1) mmol/L Chloride 104 (98-107) mmol/L Carbon Dioxide 22 (22-30) mmol/L Anion Gap 12 mmol/L BUN 25 H (9-20) mg/dL Creatinine 1.22 (0.66-1.25) mg/dL Est GFR (CKD-EPI)AfAm 83 (>60 ml/min/1.73 sqM) Est GFR (CKD-EPI)NonAf 72 (>60 ml/min/1.73 sqM) Glucose 121 H (74-99) mg/dL Calcium 8.9 (8.4-10.2) mg/dL Phosphorus 2.9 (2.5-4.5) mg/dL Magnesium 1.9 (1.6-2.3) mg/dL Total Bilirubin 0.5 (0.2-1.3) mg/dL AST 31 (17-59) U/L ALT 31 (4-49) U/L Alkaline Phosphatase 68 (38-126) U/L Troponin I (0.000-0.034) ng/mL NT-Pro-B Natriuret Pep pg/mL Total Protein 7.3 (6.3-8.2) g/dL Albumin 4.2 (3.5-5.0) g/dL 07/26/22 07/26/22 Range/Units 14:37 14:37 WBC (3.8-10.6) k/uL RBC (4.30-5.90) m/uL Hgb (13.0-17.5) gm/dL Hct (39.0-53.0) % MCV (80.0-100.0) fL MCH (25.0-35.0) pg MCHC (31.0-37.0) g/dL RDW (11.5-15.5) % Plt Count (150-450) k/uL MPV Neutrophils % (Manual) % Lymphocytes % (Manual) % Monocytes % (Manual) % Eosinophils % (Manual) % Neutrophils # (Manual) (1.3-7.7) k/uL Lymphocytes # (Manual) (1.0-4.8) k/uL Monocytes # (Manual) (0-1.0) k/uL Eosinophils # (Manual) (0-0.7) k/uL Nucleated RBCs (0-0) /100 WBC Manual Slide Review Large Platelets Tear Drop Cells PT (9.0-12.0) sec INR (<1.2) APTT (22.0-30.0) sec Sodium (137-145) mmol/L Potassium (3.5-5.1) mmol/L Chloride (98-107) mmol/L Carbon Dioxide (22-30) mmol/L Anion Gap mmol/L BUN (9-20) mg/dL Creatinine (0.66-1.25) mg/dL Est GFR (CKD-EPI)AfAm (>60 ml/min/1.73 sqM) Est GFR (CKD-EPI)NonAf (>60 ml/min/1.73 sqM) Glucose (74-99) mg/dL Calcium (8.4-10.2) mg/dL Phosphorus (2.5-4.5) mg/dL Magnesium (1.6-2.3) mg/dL Total Bilirubin (0.2-1.3) mg/dL AST (17-59) U/L ALT (4-49) U/L Alkaline Phosphatase (38-126) U/L Troponin I <0.012 (0.000-0.034) ng/mL NT-Pro-B Natriuret Pep 118 pg/mL Total Protein (6.3-8.2) g/dL Albumin (3.5-5.0) g/dL - EKG Data -: EKG Interpreted by Me (Repeat EKG shows sinus 78 GA 143 QRS 106 QTc 434 patient every other PVC ) Disposition Clinical Impression: PVC (premature ventricular contraction), Near syncope, Dizziness, Weakness Disposition: ADMITTED IP TO THIS [facility] Condition: Good Is patient prescribed a controlled substance at d/c from ED?: No Referrals: Rj Segura MD [Primary Care Provider] - 1-2 days Time of Disposition: 16:20
[2022-07-26 15:14] LABS: Albumin 4.2 g/dL (3.5-5.0); Calcium 8.9 mg/dL (8.4-10.2); Magnesium 1.9 mg/dL (1.6-2.3); Phosphorus 2.9 mg/dL (2.5-4.5); Potassium 3.8 mmol/L (3.5-5.1); Total Bilirubin 0.5 mg/dL (0.2-1.3); Total Protein 7.3 g/dL (6.3-8.2)
[2022-07-26 15:22] LABS: Partial Thromboplastin Time 23.2 sec (22.0-30.0); Prothrombin Time 10.2 sec (9.0-12.0)
[2022-07-26 15:25] LABS: HCT 40.2 % (39.0-53.0); HGB 13.7 gm/dL (13.0-17.5); MCH 27.7 pg (25.0-35.0); MCHC 34.1 g/dL (31.0-37.0); MCV 81.3 fL (80.0-100.0); Mean Platelet Volume 11.7; Platelet Count 143 k/uL (150-450); RBC 4.94 m/uL (4.30-5.90); RDW 13.2 % (11.5-15.5); WBC 6.6 k/uL (3.8-10.6)
[2022-07-26 16:08] LABS: Eosinophils # (M) 0.13 k/uL (0-0.7); Lymphocytes # (M) 1.12 k/uL (1.0-4.8); Monocytes # (M) 0.33 k/uL (0-1.0); Neutrophils # (M) 5.02 k/uL (1.3-7.7); Neutrophils % (M) 76 %; Nucleated Red Blood Cells 0 /100 WBC (0-0); Total Cells Counted 100
[2022-07-26 16:09] LABS: Large Platelets Present; Tear Drop Cells Present
[2022-07-26] MEDS ORDERED: NALOXONE 0.4 MG/ML 1 ML VIAL IV PRN (16:26)
[2022-07-26] MEDS ORDERED: ONDANSETRON 4 MG/2 ML VIAL IVP PRN (16:26)
[2022-07-26] MEDS ORDERED: MORPHINE SULFATE 4 MG/ML SYRINGE IV PRN (16:26)
[2022-07-26] MEDS: SODIUM CHLORIDE 0.9% 1,000 ML IV SCH (17:46)
[2022-07-27] MEDS: SODIUM CHLORIDE 0.9% 1,000 ML IV SCH ×3 (04:15→16:31)
--- NOTE | 2022-07-27 09:22 | CONS ---
CONSULTATION CHIEF COMPLAINT: Dizziness. HISTORY OF PRESENT ILLNESS: Russell is a -[id number] gentleman with nonischemic cardiomyopathy, frequent ventricular ectopy, and prior episodes of dizziness who comes into the hospital complaining of dizziness. He states that he was lightheaded, dizzy, weak, and had palpitations. The patient has had very similar symptoms recently, was in the hospital, ruled out for myocardial infarction, had cardiomyopathy on an echocardiogram, underwent cardiac catheterization that did not reveal significant obstructive CAD. The plan was to treat him with beta blockers and see how his symptoms improve and reassess his LV function, and if necessary, consider PVC ablation. He comes back in with very symptomatic PVCs. EKG shows ventricular bigeminy. Workup is essentially unremarkable. Troponins are negative. Creatinine is normal. Rest of his workup is negative. PAST MEDICAL HISTORY: Significant for hypertension, cardiomyopathy, and PVCs. MEDICATIONS: Include, 1. Norvasc. 2. Prevacid. 3. Toprol. 4. Losartan. 5. Flexeril. 6. Aspirin. ALLERGIES: Blueberry and grapefruit. FAMILY HISTORY: Negative for premature coronary artery disease. SOCIAL HISTORY: Negative for smoking, EtOH abuse, or drug abuse. REVIEW OF SYSTEMS: HEENT: Unremarkable. CARDIAC: As described above. RESPIRATORY: As described above. GI: Negative. GENITOURINARY: Negative. ALLERGY/IMMUNOLOGY: Negative. SKIN: Negative. MUSCULOSKELETAL: Significant for arthritis. PSYCHOSOCIAL: Negative. DERM: Negative. CONSTITUTIONAL: Negative. ONCOLOGICAL: Negative. HEEL BLACKER. Negative. Rest of the system review is not relevant. PHYSICAL EXAMINATION: GENERAL: The patient is comfortable at rest. VITAL SIGNS: Stable. NECK: There is no jugular venous distention. Carotid upstroke is normal. There is no bruit. CHEST: Exam reveals good air entry bilaterally. HEART: Exam reveals first and second heart sounds. No gallop. No murmur. No rub. ABDOMEN: Soft, nontender. EXTREMITIES: Exam did not reveal any edema. Peripheral pulses are felt. LABORATORY DATA: Labs show hemoglobin of 15.7, platelet count is 143. Potassium is 3.8, creatinine is 1.2. Troponin x3 is negative. ASSESSMENT AND PLAN: 1. Symptomatic ventricular bigeminy. 2. Nonischemic cardiomyopathy. PLAN: I will continue the patient on beta blockers. Ambulate him. Consider EP evaluation and possible ablation. MMODL / IJN: [id number] /
[2022-07-27] MEDS: AMIODARONE 200 MG TAB PO SCH (20:55)
[2022-07-27] MEDS ORDERED: CHLORTHALIDONE 25 MG TAB PO SCH (21:00)
[2022-07-28] MEDS ORDERED: PANTOPRAZOLE 40 MG TABLET PO SCH (07:30)
[2022-07-28] MEDS: AMIODARONE 200 MG TAB PO SCH (08:50)
[2022-07-28] MEDS ORDERED: ASPIRIN 325 MG TAB PO SCH (09:00)
[2022-07-28] MEDS ORDERED: METOPROLOL SUCCINATE (ER) 50 MG TAB.ER.24H PO SCH (09:00)
[2022-07-28] MEDS ORDERED: LOSARTAN 50 MG TAB PO SCH (09:00)
[2022-07-28] MEDS ORDERED: amLODIPine 10 MG TAB PO SCH (09:00)
[2022-07-28 09:30] VITALS: TEMP 97.7
--- NOTE | 2022-07-28 12:22 | P.PN ---
Subjective Progress Note Date: 07/28/22 This is a pleasant 46-year-old gentleman who follows in the office with Dr. Liriano. Has history of nonischemic myopathy, frequent PVCs and prior history of dizziness and was recently discharged for the same. Presented this admission with complaints of lightheadedness, dizziness, weakness and palpitations. Very similar to recent hospitalization. Cardiac catheterization during his most recent hospitalization does not reveal significant obstructive CAD. He was initiated on beta blockers with plan for close follow-up including reassessment of his LV function and if necessary consideration for PVC ablation. On admission this time he was noted to have bigeminal PVCs that were symptomatic. Troponins were negative and creatinine was normal. He was initiated on amiodarone and beta deana was increased. He is maintaining sinus mechanism on the monitor with less ectopy noted. His symptoms have resolved. Vital signs are stable. Objective - Vital Signs Vital signs: Vital Signs Temp 97.7 F 07/28/22 07:00 Pulse 89 07/28/22 07:00 Resp 18 07/28/22 07:00 BP 145/90 07/28/22 07:00 Pulse Ox 97 07/28/22 07:54 FiO2 Intake & Output 07/27/22 07/28/22 07/28/22 18:59 06:59 18:59 Intake Total 118 Balance 118 Intake: Oral 118 Other: Voiding Method Toilet Toilet # Voids 2 1 - Exam PHYSICAL EXAMINATION: HEENT: Head is atraumatic, normocephalic. Pupils equal, round. Neck is supple. There is no elevated jugular venous pressure. HEART EXAMINATION: Heart sounds regular, S1 and S2 normal. No murmur or gallop heard. CHEST EXAMINATION: Lungs are clear to auscultation and precussion. No chest wall tenderness is noted on palpation or with deep breathing. ABDOMEN: Soft, nontender. Bowel sounds are heard. No organomegaly noted. EXTREMITIES: 2+ peripheral pulses with no evidence of peripheral edema and no calf tenderness noted. NEUROLOGIC patient is awake, alert and oriented x3. . - Labs CBC & Chem 7: 07/26/22 14:37 07/26/22 14:37 Assessment and Plan Assessment: 1 nonischemic myopathy #2 frequent, symptomatic PVCs, improved Plan: From cardiology perspective medications were reviewed and will continue same at this time. He'll follow-up in the office with Dr. Liriano next one to 2 weeks and further recommendations will be made in regards to possibility of PVC ablation in the future. HAIRSPRING TRUER note has been reviewed, I agree with a documented findings and plan of care. Patient was seen and examined.
[2022-07-28 15:03] VITALS: BP 110/69; PULSE 62; RESP 17
[2022-07-29] MEDS ORDERED: METOPROLOL SUCCINATE (ER) 100 MG TAB.ER.24H PO SCH (09:00)
--- NOTE | 2022-07-31 22:52 | HP ---
HISTORY AND PHYSICAL CHIEF COMPLAINT: Dizziness, lightheadedness, palpitations, and near syncope. HISTORY OF PRESENT ILLNESS: This is an another admission for this 46-year-old male who has had recently history of frequent PVCs. He was in the hospital, treated and sent home on a beta deana, but he was in the store when he suddenly felt as though he is going to pass out. He felt lightheaded, dizzy, clammy and unsteady. He had no chest pain. He came to the emergency room where he was having frequent PVCs and he was readmitted. REVIEW OF SYSTEMS: He has had no other symptoms. He has had no neurologic problems, chest pain, etc. He has no history of murmurs. Past medical history, family history and personal and social histories are all unchanged from his recent admission. PHYSICAL EXAMINATION: VITAL SIGNS: Blood pressure is 138/82 with a pulse of 83 and irregular, respirations 17. He is afebrile. GENERAL: He appeared to be overweight, in no acute distress. SKIN: Color is normal. Skin is warm, dry. LYMPHATICS: Lymph nodes are not enlarged. HEAD, EARS, EYES, NOSE, MOUTH AND THROAT: Normal. NECK: Neck veins are not distended. Thyroid is not palpable. CHEST: Clear. CARDIAC: Demonstrated occasional extra beats with no murmurs or extra sounds. ABDOMEN: Soft, nontender. EXTREMITIES: Normal. NEUROLOGIC: He is intact. He is admitted to the hospital with diagnoses, 1. Near syncope. 2. Ventricular arrhythmia. PLAN: 1. Bed rest. 2. IV fluids. 3. Beta deana. 4. Re-evaluation by Cardiology. TESSIE / WILMAN: [id number] /
--- NOTE | 2022-08-01 07:44 | PN ---
PROGRESS NOTE CHIEF COMPLAINT: Dizziness and near syncope. HISTORY OF PRESENT ILLNESS: This gentleman is improved. He is still having occasional PVCs, but he is not feeling dizzy or lightheaded. PHYSICAL EXAMINATION: CHEST: Clear. CARDIAC: Normal. ABDOMEN: Soft, nontender. IMPRESSION: 1. Frequent symptomatic premature ventricular contractions. 2. Hypertension. PLAN: 1. Increase Toprol from 50 to 100 mg once a day. 2. Continue cardiac monitoring. MMODL / IJN: [id number] /
== END 2022-07-28 19:51 | disposition home or self-care (01) ==
LOC: EC 13:55 → 6NMEDSUR 16:26
PROVIDERS: ADMIT Family Medicine; ATTEND Family Medicine
DX: I49.3 Ventricular premature depolarization (principal); I42.8 Other cardiomyopathies; I10 Essential (primary) hypertension; K21.9 Gastro-esophageal reflux disease without esophagitis; F41.9 Anxiety disorder, unspecified; Z79.82 Long term (current) use of aspirin; Z79.1 Long term (current) use of non-steroidal anti-inflammatories (NSAID); Z79.899 Other long term (current) drug therapy; Z91.018 Allergy to other foods; Z98.818 Other dental procedure status; Z98.890 Other specified postprocedural states; Z87.891 Personal history of nicotine dependence; Z83.3 Family history of diabetes mellitus; Z82.49 Family history of ischemic heart disease and other diseases of the circulatory system; Z84.1 Family history of disorders of kidney and ureter
CPT/HCPCS: 96361; 96374; 99285; 36415; 94760 ×2; 93005; 83880; 80053; 83735 ×2; 84100; 84484; 85025; 85610; 85730; G0378 ×3; J2405

== ENCOUNTER 2022-08-05 12:15 | Emergency (ER) | payer OTHER ==
--- NOTE | 2022-08-05 13:32 | ED ---
General Adult HPI - General Chief complaint: Chest Pain Stated complaint: DAVID Time Seen by Provider: 08/05/22 12:55 Source: patient Mode of arrival: ambulatory Limitations: no limitations - History of Present Illness Initial comments: Dictation was produced using [email or web address] dictation software. please excuse any grammatical, word or spelling errors. 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 He is at work today started having sharp chest pain is worse with deep inspiration. Patient just been discharged from our facility for chest pain. He is evaluated by cardiology and discharged. Patient's had a catheterization performed in June of this year showed no coronary artery disease. Patient does report associated dyspnea. No history of blood clots. The ROS documented in this emergency department record has been reviewed and confirmed by me. Those systems with pertinent positive or negative responses have been documented in the HPI. All other systems are other negative and/or noncontributory. - Related Data Home Medications Medication Instructions Recorded Confirmed Chlorthalidone [Hygroton] 25 mg PO HS 07/13/22 07/26/22 Ciclopirox 1 applic TOPICAL BID 07/13/22 07/26/22 Cyclobenzaprine [Flexeril] 10 mg PO HS 07/13/22 07/26/22 Losartan Potassium 50 mg PO DAILY 07/13/22 07/26/22 Naproxen [Naprosyn] 500 mg PO BID 07/13/22 07/26/22 Omeprazole [PriLOSEC] 20 mg PO BID 07/13/22 07/26/22 amLODIPine [Norvasc] 10 mg PO DAILY 07/13/22 07/26/22 Previous Rx's Medication Instructions Recorded Aspirin 325 mg PO DAILY #100 tab 07/16/22 Amiodarone [Cordarone] 200 mg PO BID #20 tab 07/28/22 Metoprolol Succinate (ER) [Toprol 100 mg PO DAILY #30 tab 07/28/22 XL] Allergies Allergy/AdvReac Type Severity Reaction Status Date / Time blueberry Allergy Unknown Verified 08/05/22 12:29 grapefruit Allergy Unknown Verified 08/05/22 12:29 Review of Systems ROS Statement: Those systems with pertinent positive or pertinent negative responses have been documented in the HPI. ROS Other: All systems not noted in ROS Statement are negative. Past Medical History Past Medical History: GERD/Reflux, Hypertension Additional Past Medical History / Comment(s): Hematuria, lower back pain, anxiety, bigeminy rhythm on 07/13/22, History of Any Multi-Drug Resistant Organisms: None Reported Additional Past Surgical History / Comment(s): tooth extraction, Heart catheterization (june 2022) Past Anesthesia/Blood Transfusion Reactions: No Reported Reaction Past Psychological History: Anxiety Smoking Status: Former smoker Past Alcohol Use History: None Reported Past Drug Use History: None Reported - Past Family History Mother Family Medical History: Coronary Artery Disease (CAD), Diabetes Mellitus, Renal Disease Additional Family Medical History / Comment(s): CABG Father Family Medical History: Coronary Artery Disease (CAD) Additional Family Medical History / Comment(s): CABG General Exam Limitations: no limitations Course Vital Signs 08/05/22 12:27 Temperature 98.3 F Pulse Rate 61 Respiratory 22 Rate Blood Pressure 112/69 O2 Sat by Pulse 100 Oximetry EKG Findings - EKG Comments: EKG Findings:: My EKG interpretation: Ventricular rate 57, sinus bradycardia,. 152, QRS 11, QTC 3. No NE prolongation, no QTC prolongation, no ST or T-wave changes noted. EKG compared to 07/26/2022 showing no changes. Overall, this EKG is unremarkable Medical Decision Making - Medical Decision Making Was pt. sent in by a medical professional or institution (, PA, AVIATION SAFETY OFFICER, urgent care, hospital, or fpc...) When possible be specific @ -No Did you speak to anyone other than the patient for history (EMS, parent, family, police, friend...)? What history was obtained from this source @ -No Did you review nursing and triage notes (agree or disagree)? Why? @ -I reviewed and agree with nursing and triage notes Were old charts reviewed (outside hosp., previous admission, EMS record, old EKG, old radiological studies, urgent care reports/EKG's, fpc records)? Report findings @ -Per cardiology notes including cardiovascular procedure performed on July 16 showed normal coronary arteries on Cardiac cath procedure performed that day Differential Diagnosis (chest pain, altered mental status, abdominal pain women, abdominal pain men, vaginal bleeding, musculoskeletal, weakness, fever, dyspnea, syncope, headache, dizziness, GI bleed, back pain, seizure, CVA, palpatations, mental health)? @ -Differential Chest Pain: Stable Angina, Unstable Angina, STEMI, NSTEMI Aortic Dissection, Pneumothorax, Musculoskeletal, Esophageal Spasm GERD, Cholecystitis, Pancreatitis, Zoster, this is not meant to be an all-inclusive list. EKG interpreted by me (3pts min.). @ -As above X-rays interpreted by me (1pt min.). @ -Chest X-rays unremarkable for any acute processes CT interpreted by me (1pt min.). @ -None done U/S interpreted by me (1pt. min.). @ -None done What testing was considered but not performed or refused? (CT, X-rays, U/S, labs)? Why? @ -None What meds were considered but not given or refused? Why? @ -None Did you discuss the management of the patient with other professionals (professionals i.e. , PA, AVIATION SAFETY OFFICER, lab, RT, psych nurse, manager social media, criminal lawyer, teacher, fire control officer, case folder)? Give summary @ -No Was smoking cessation discussed for >3mins.? @ -No Was critical care preformed (if so, how long)? @ -No Were there social determinants of health that impacted care today? How? (Homelessness, low income, unemployed, alcoholism, drug addiction, tra nsportation, low edu. Level, literacy, decrease access to med. care, half-way, rehab)? @ -No Was there de-escalation of care discussed even if they declined (Discuss DNR or withdrawal of care, Hospice)? DNR status @ -No What co-morbidities impacted this encounter? (DM, HTN, Smoking, COPD, CAD, Cancer, CVA, ARF, Chemo, Hep., AIDS, mental health diagnosis, sleep apnea, morbid obesity)? @ -None Was patient admitted / discharged? Hospital course, mention meds given and route, prescriptions, significant lab abnormalities, going to OR and other pertinent info. @ -46-year-old male presents emergency department for chest pain. His symptoms are atypical with typical features. Vital signs stable. EKG is unremarkable. She had normal coronary arteries seen on cardiac cath from last month. Troponin is negative. D-dimer is negative. Patient discharged Undiagnosed new problem with uncertain prognosis? @ -No Drug Therapy requiring intensive monitoring for toxicity (Heparin, Nitro, Insulin, Cardizem)? @ -No Were any procedures done? @ -No Diagnosis/symptom? Acute, or Chronic, or Acute on Chronic? Uncomplicated (without systemic symptoms) or Complicated (systemic symptoms)? @ -Chest pain Side effects of treatment? @ -No Exacerbation, Progression, or Severe Exacerbation? @ -No Poses a threat to life or bodily function? How? (Chest pain, USA, NV, pneumonia, PE, COPD, DKA, ARF, appy, cholecystitis, CVA, Diverticulitis, Homicidal, Suicidal, threat to staff... and all critical care pts) @ -No - Lab Data Result diagrams: 08/05/22 13:29 Lab Results 08/05/22 08/05/22 08/05/22 Range/Units 13:29 13:29 13:29 PT 10.4 (9.0-12.0) sec INR 1.0 (<1.2) APTT 22.7 (22.0-30.0) sec D-Dimer 0.39 (<0.60) mg/L FEU Sodium 138 (137-145) mmol/L Potassium 4.4 (3.5-5.1) mmol/L Chloride 103 (98-107) mmol/L Carbon Dioxide 21 L (22-30) mmol/L Anion Gap 14 mmol/L BUN 29 H (9-20) mg/dL Creatinine 1.74 H (0.66-1.25) mg/dL Est GFR (CKD-EPI)AfAm 54 (>60 ml/min/1.73 sqM) Est GFR (CKD-EPI)NonAf 47 (>60 ml/min/1.73 sqM) Glucose 94 (74-99) mg/dL Calcium 9.4 (8.4-10.2) mg/dL Magnesium 1.8 (1.6-2.3) mg/dL Total Bilirubin 0.6 (0.2-1.3) mg/dL AST 26 (17-59) U/L ALT 29 (4-49) U/L Alkaline Phosphatase 68 (38-126) U/L Troponin I <0.012 (0.000-0.034) ng/mL Total Protein 8.3 H (6.3-8.2) g/dL Albumin 4.7 (3.5-5.0) g/dL Disposition Clinical Impression: Chest pain Disposition: HOME SELF-CARE Condition: Good Instructions (If sedation given, give patient instructions): Chest Pain (ED) Is patient prescribed a controlled substance at d/c from ED?: No Referrals: Rj Segura MD [Primary Care Provider] - 1-2 days Time of Disposition: 15:49
[2022-08-05 13:59] LABS: ALT 29 U/L (4-49); AST 26 U/L (17-59); African American GFR (CKD) 54 (>60 ml/min/1.73 sqM); Albumin 4.7 g/dL (3.5-5.0); Alkaline Phosphatase 68 U/L (38-126); Anion Gap 14 mmol/L; Blood Urea Nitrogen 29 mg/dL (9-20); Calcium 9.4 mg/dL (8.4-10.2); Carbon Dioxide 21 mmol/L (22-30); Chloride 103 mmol/L (98-107); Glucose 94 mg/dL (74-99); Magnesium 1.8 mg/dL (1.6-2.3); Non-African American GFR(CKD) 47 (>60 ml/min/1.73 sqM); Potassium 4.4 mmol/L (3.5-5.1); Sodium 138 mmol/L (137-145); Total Bilirubin 0.6 mg/dL (0.2-1.3); Total Protein 8.3 g/dL (6.3-8.2)
[2022-08-05 14:04] LABS: Partial Thromboplastin Time 22.7 sec (22.0-30.0); Prothrombin Time 10.4 sec (9.0-12.0)
--- NOTE | 2022-08-05 14:27 | XR ---
EXAMINATION TYPE: XR chest 2V DATE OF EXAM: 08/05/2022 COMPARISON: 07/13/2022 HISTORY: 46-year-old male with chest pain TECHNIQUE: PA and lateral views FINDINGS: Heart upper limits of normal in size, likely accentuated due to low lung volumes. Some crowded vascu lar markings are noted but no consolidation or pleural effusion. IMPRESSION: Borderline heart size, likely accentuated due to hypoventilatory changes. No definite acute process.
[2022-08-05 19:26] VITALS: BP 121/73; PULSE 63; RESP 20; TEMP 98
== END 2022-08-05 19:26 | disposition home or self-care (01) ==
LOC: EC 12:15
DX: R07.89 Other chest pain (principal); K21.9 Gastro-esophageal reflux disease without esophagitis; I10 Essential (primary) hypertension; F41.9 Anxiety disorder, unspecified; Z87.891 Personal history of nicotine dependence; Z79.899 Other long term (current) drug therapy; Z91.018 Allergy to other foods
CPT/HCPCS: 36415; 71046; 80053; 83735; 84484; 85379; 85610; 85730; 93005; 99285

== ENCOUNTER → 2023-02-12 | Outpatient (CLI) | payer OTHER ==
[2023-02-12 15:15] LABS: HGB 12.9 g/dL (13.0-17.0); MCH 27.2 pg (27.0-32.0); MCHC 33.1 g/dL (32.0-37.0); MCV 82.1 FL (80.0-97.0); NRBC Per 100 WBC 0 X 10*3/uL (0.00-0.01); Platelet Count 125 X 10*3/uL (140-440); RBC 4.75 X 10*6/uL (4.40-5.60); RDW 13.5 % (11.5-14.5); WBC 4.31 X 10*3/uL (4.50-10.00)
[2023-02-12 15:27] LABS: Blood Urea Nitrogen 20.4 mg/dL (9.0-27.0); Chloride 107 mmol/L (96-109); Potassium 4.6 mmol/L (3.5-5.5); Sodium 140 mmol/L (135-145)
== END | disposition home or self-care (01) ==
LOC: LABPAT 08:19
PROVIDERS: ATTEND Internal Medicine Clinical Cardiac Electrophysiology
DX: Z01.812 Encounter for preprocedural laboratory examination (principal); I49.3 Ventricular premature depolarization
CPT/HCPCS: 80051; 82565; 84520; 85027

== ENCOUNTER 2023-02-19 06:10 | Day surgery (SDC) | payer OTHER ==
[2023-02-15 08:23] VITALS: BMI 43.0
[~2023-02-19 06:10] MED LIST: SODIUM CHLORIDE 0.9% 1,000 ML IV SCH
[2023-02-19 07:35] LABS: ALT 31 U/L (4-49); AST 31 U/L (17-59); African American GFR (CKD) >90 (>60 ml/min/1.73 sqM); Albumin 4.3 g/dL (3.5-5.0); Alkaline Phosphatase 62 U/L (38-126); Anion Gap 13 mmol/L; Blood Urea Nitrogen 28 mg/dL (9-20); Calcium 9.4 mg/dL (8.4-10.2); Carbon Dioxide 20 mmol/L (22-30); Chloride 104 mmol/L (98-107); Glucose 119 mg/dL (74-99); Non-African American GFR(CKD) 82 (>60 ml/min/1.73 sqM); Potassium 4.5 mmol/L (3.5-5.1); Sodium 137 mmol/L (137-145); Total Bilirubin 0.8 mg/dL (0.2-1.3); Total Protein 7.5 g/dL (6.3-8.2)
[2023-02-19 07:45] LABS: Basophils % (A) 1 %; Eosinophils # (A) 0.3 k/uL (0-0.7); Eosinophils % (A) 7 %; HCT 40.8 % (39.0-53.0); HGB 13.8 gm/dL (13.0-17.5); Lymphocytes # (A) 1.7 k/uL (1.0-4.8); Lymphocytes % (A) 34 %; MCH 28.2 pg (25.0-35.0); MCHC 33.8 g/dL (31.0-37.0); MCV 83.3 fL (80.0-100.0); Mean Platelet Volume 11.7; Monocytes # (A) 0.3 k/uL (0-1.0); Monocytes % (A) 7 %; Neutrophils # (A) 2.4 k/uL (1.3-7.7); Neutrophils % (A) 50 %; RDW 13.9 % (11.5-15.5); WBC 4.9 k/uL (3.8-10.6)
[2023-02-19] MEDS ORDERED: fentaNYL (PF) 50 MCG/ML 2 ML AMP ONE (08:08)
[2023-02-19] MEDS ORDERED: diphenhydrAMINE 50 MG/ML 1 ML VIAL ONE (08:08)
[2023-02-19] MEDS ORDERED: MIDAZOLAM 2 MG/2 ML VIAL ONE (08:08)
[2023-02-19] MEDS ORDERED: ISOPROTERENOL 250 MCG/1.25 ML SYR IV ONE (08:08)
[2023-02-19] MEDS ORDERED: KETOROLAC 30 MG/ML 1 ML VIAL ONE (08:08)
[2023-02-19 08:09] LABS: Large Platelets Present; Platelet Count 146 k/uL (150-450)
--- NOTE | 2023-02-19 08:27 | P.HPCAR ---
History of Present Illness This is Dr. Barry dictating an H/P on this patient The patient was interviewed and examined IMPRESSION / ASSESSMENT: Severe cardio myopathy, nonischemic dilated left ventricle Frequent PVCs, possibly 2 different morphologies Normal coronary arteries Hypertension Increase BMI of greater than 40 PLAN: Proceed with diagnostic EP study and possible PVC/VT ablation Patient is stable from a cardiac vascular standpoint HPI Patient came back for follow-up visit. He denies any chest discomfort dizziness lightheadedness or palpitations No syncope recently No cough phlegm or expectoration fever chills No skin infections He continues to have palpitations and PVCs ROS: No fever chills or rigors, no cough, phlegm or expectoration, no nausea, vomiting or diarrhea, no hematuria, dysuria, no musculoskeletal complaints, no strokes or seizures, no skin lesions. EXAMINATION: Normal heart sounds Normal breath sounds Normal blood pressure Irregular rhythm No JVD line clear lungs no rhonchi no crackles No murmurs No lower extremity edema REVIEW OF LABS, ECG & MEDICAL DATA On carvedilol spironolactone losartan White count 4.9 thousand, hemoglobin 13.8 Platelet count 146,000 Sodium 137, potassium 4.5 both normal . 28 creatinine 1.08 normal Liver function normal TSH 3.62 normal Physical Exam Vitals: Vital Signs Temp Pulse Resp BP Pulse Ox 02/19/23 06:50 97.4 F L 84 18 135/65 95 Intake and Output 02/18/23 02/19/23 02/19/23 22:59 06:59 14:59 Intake Total 20 Balance 20 Intake: IV 20 Other: Weight 159.9 kg Past Medical History Past Medical History: GERD/Reflux, Hypertension Additional Past Medical History / Comment(s): See Dr Barry's H&P,Hematuria, lower back pain, anxiety, bigeminy rhythm on 07/13/22, History of Any Multi-Drug Resistant Organisms: None Reported Past Surgical History: Heart Catheterization Additional Past Surgical History / Comment(s): tooth extraction, Heart catheterization (june 2022) Past Anesthesia/Blood Transfusion Reactions: No Reported Reaction Additional Past Anesthesia/Blood Transfusion Reaction / Comment(s): unk family hx Smoking Status: Former smoker - Past Family History Mother Family Medical History: Coronary Artery Disease (CAD), Diabetes Mellitus, Renal Disease Additional Family Medical History / Comment(s): CABG Father Family Medical History: Coronary Artery Disease (CAD) Additional Family Medical History / Comment(s): CABG Physical Examination Vital Signs Temp Pulse Resp BP Pulse Ox 02/19/23 06:50 97.4 F L 84 18 135/65 95 Intake and Output 02/18/23 02/19/23 02/19/23 22:59 06:59 14:59 Intake Total 20 Balance 20 Intake: IV 20 Other: Weight 159.9 kg Results 02/19/23 06:40 02/19/23 06:40 Cardiac Enzymes 02/19/23 Range/Units 06:40 AST 31 (17-59) U/L CBC 02/19/23 Range/Units 06:40 WBC 4.9 (3.8-10.6) k/uL RBC 4.90 (4.30-5.90) m/uL Hgb 13.8 (13.0-17.5) gm/dL Hct 40.8 (39.0-53.0) % Plt Count 146 L (150-450) k/uL Comprehensive Metabolic Panel 02/19/23 Range/Units 06:40 Sodium 137 (137-145) mmol/L Potassium 4.5 (3.5-5.1) mmol/L Chloride 104 (98-107) mmol/L Carbon Dioxide 20 L (22-30) mmol/L BUN 28 H (9-20) mg/dL Creatinine 1.08 (0.66-1.25) mg/dL Glucose 119 H (74-99) mg/dL Calcium 9.4 (8.4-10.2) mg/dL AST 31 (17-59) U/L ALT 31 (4-49) U/L Alkaline Phosphatase 62 (38-126) U/L Total Protein 7.5 (6.3-8.2) g/dL Albumin 4.3 (3.5-5.0) g/dL Current Medications Generic Name Dose Route Start Last Admin Trade Name Freq PRN Reason Stop Dose Admin Sodium Chloride 1,000 mls @ 20 mls/hr 02/19/23 05:53 02/19/23 06:52 Saline 0.9% IV 03/21/23 05:54 20 mls .Q24H DEJAH Administration Intake and Output 02/18/23 02/19/23 02/19/23 22:59 06:59 14:59 Intake Total 20 Balance 20 Intake: IV 20 Other: Weight 159.9 kg 02/19/23 06:40 02/19/23 06:40
[2023-02-19] MEDS ORDERED: LIDOCAINE 1% INJ 10MG/ML (20 ML MDV) ONE (08:39)
[2023-02-19] MEDS ORDERED: HEPARIN SODIUM 1,000 UN/ML (10ML VL) ONE (08:52)
[2023-02-19] MEDS ORDERED: LIDOCAINE 1% INJ 10MG/ML (20 ML MDV) SQ ONE (09:00)
[2023-02-19] MEDS ORDERED: HEPARIN SODIUM (1,000 UNIT/ML) 1,000 UNIT in SODIUM CHLORIDE 0.9% 1,000 ML IRRIGATION ONE (10:31)
[2023-02-19] MEDS ORDERED: ACETAMINOPHEN IV (For NPO) 1,000 MG in EMPTY BAG 1 BAG IVPB ONE (11:17)
[2023-02-19] MEDS ORDERED: ACETAMINOPHEN TAB 325 MG TAB PO PRN (11:17)
--- NOTE | 2023-02-19 11:36 | P.EPPROC ---
- EP Procedure Note Electrophysiology Procedure Note: Diagnosis Frequent PVCs in a bigeminal pattern, symptomatic Associated cardio myopathy, nonischemic Procedure Diagnoses EP study and ablation of PVC plan Final diagnosis RVOT PVCs, free wall focus Successful mapping and ablation Excellent, early unipolar and bipolar signals with activation mapping and pace map concordance of greater than 95% RF ablation resulted in immediate termination of the focus Details Patient was brought to the EP lab in a fasting state. Written informed consent was obtained prior to the procedure. Conscious sedation was provided Venous sheaths placed in the right left femoral veins Diagnostic cath was placed in the high right atrium and His bundle area, right ventricle and coronary sinus Patient is in sinus rhythm with frequent PVCs PVCs and a left bundle branch block morphology transition beyond V3 upright in the inferior leads and an M-shaped in lead 1 Sinus cycle length 990 ms, CT interval 145 ms, QRS 100 ms and QT 430 ms AH 99 and HV 39 ms Sinus node recovery times at 600, 500 and, 400 ms were 1411, 1593 and 1149 ms. Corresponding corrected sinus node recovery times abnormal AV node Wenckebach block 410 ms in the baseline state Cole response to Parahisian pacing Burst stimulation performed from the right ventricle from 400 ms down to 250 ms. No inducible sustained VT Ventricle extra stimulation performed from the right ventricle. No inducible VT Rusty sinus pacing was performed atrial extra stimulation was performed. No inducible SVT or VT Mapping of the PVC was performed Intracardiac echo revealed a mildly thickened pericardium without effusion Aortic cusp and pulmonic valves and RVOT were mapped 3-D electro-anatomic mapping was performed The PVC was mapped to the free wall of the right ventricular outflow tract just below the pulmonic valve Excellent unipolar and bipolar signals obtained with activation mapping This area was evaluated with pace mapping While the pacemaker revealed concordance of 95%, visually it looked close to 98- 99% RF ablation at the site resulted in near immediate termination of the focus RF ablation was applied around the site No further PVCs were noted EP testing was positive and performed on high-dose Isuprel Atrial extra stimulation from the high right atrium, AV node Wenckebach block improved to 300 ms There was no evidence for any further PVCs on her off Isuprel after successful ablation Sheaths were removed and Vascade closure device applied
[2023-02-19] MEDS: carvediloL 12.5 MG TAB PO SCH (16:48)
[2023-02-20] MEDS: carvediloL 12.5 MG TAB PO SCH (06:31)
[2023-02-20] MEDS ORDERED: PANTOPRAZOLE 40 MG TABLET PO SCH (07:30)
--- NOTE | 2023-02-20 08:10 | DS ---
DISCHARGE SUMMARY HISTORY OF PRESENT ILLNESS: Russell has frequent PVCs and nonischemic cardiomyopathy. He underwent RVOT PVC ablation yesterday successfully. The focus was in the lateral wall of the RVOT just below the pulmonic valve, this morning he is doing well. His blood pressure is in the upper limits of normal. Heart sounds S1, S2 are normal. No murmurs, no gallops, no rub. Groins have healed well. He has no chest discomfort. No dizziness, no lightheadedness. He has been ambulating on the room and sitting in a chair currently. IMPRESSION: 1. Nonischemic cardiomyopathy. 2. Morbid obesity. 3. 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 4. Successful RF ablation. PLAN: Continue cardiomyopathy medications. Discharge home today. Follow up next week in the office. MMODL / IJN: [id number] /
[2023-02-20 08:23] VITALS: BP 131/75; PULSE 72; RESP 17; TEMP 97.8
[2023-02-20] MEDS ORDERED: LOSARTAN 50 MG TAB PO SCH (09:00)
[2023-02-20] MEDS ORDERED: SPIRONOLACTONE 25 MG TAB PO SCH (09:00)
--- NOTE | 2023-02-21 01:07 | PN ---
PROGRESS NOTE DATE OF SERVICE: 02/20/2023 CHIEF COMPLAINT: Ventricular tachycardia. HISTORY OF PRESENT ILLNESS: This gentleman is doing well. He had an ablation yesterday and expects to go home today. PHYSICAL EXAMINATION: CHEST: Clear. CARDIAC: Normal. ABDOMEN: Soft and nontender. IMPRESSION: Ventricular tachycardia. PLAN: Probably home today. MMODL / IJN: [id number] /
--- NOTE | 2023-02-21 04:10 | DS ---
DISCHARGE SUMMARY CHIEF COMPLAINT: Cardiac arrhythmia. HISTORY OF PRESENT ILLNESS AND PHYSICAL EXAMINATION: Details of this man's history and physical can be found in the initial workup. COURSE IN HOSPITAL: After admission, he was placed on bedrest and taken down for ablation. He was doing well the next day and was released by Cardiology. He will be following up with them. He will keep his regular appointment with us. FINAL DIAGNOSIS: Ventricular tachycardia. OPERATIONS: Ablation. CONSULT: Cardiology. TESSIE / WILMAN: [id number] /
--- NOTE | 2023-02-21 07:38 | HP ---
HISTORY AND PHYSICAL CHIEF COMPLAINT: Frequent PVCs and ventricular tachycardia. HISTORY OF PRESENT ILLNESS: This gentleman is brought in for an elective procedure by Cardiology. He is going to be undergoing ablation. REVIEW OF SYSTEMS: He has had no syncope, no chest pain, neurologic problems, shortness of breath, etc. Past medical history, family history, social histories reveal that he is on, 1. Omeprazole. 2. Spironolactone. 3. Trazodone. 4. Naproxen. 5. Carvedilol. 6. Losartan. 7. Cyclobenzaprine. ALLERGIES: He has had no allergies. PAST SURGICAL HISTORY: His prior surgeries include T and A. SOCIAL HISTORY: He does not smoke. PHYSICAL EXAMINATION: VITAL SIGNS: Normal. HEENT: Head, ears, eyes, nose, mouth and throat are normal. CHEST: Clear. CARDIAC: Normal with sinus rhythm and occasional extra beats. ABDOMEN: Soft, nontender. EXTREMITIES: Normal and neurologically he is intact. NEUROLOGIC: He does have mild mental debility. IMPRESSION: Frequent PVCs and ventricular tachycardia. RECOMMENDATIONS: None. MMODL / IJN: [id number] /
== END 2023-02-20 10:57 | disposition home or self-care (01) ==
LOC: CATHEP 06:10 → 6NMEDSUR 10:32 → CATHEP 02-20 10:57
PROVIDERS: ATTEND Internal Medicine Clinical Cardiac Electrophysiology
DX: I47.20 Ventricular tachycardia, unspecified (principal); I10 Essential (primary) hypertension; K21.9 Gastro-esophageal reflux disease without esophagitis; F41.9 Anxiety disorder, unspecified; E66.01 Morbid (severe) obesity due to excess calories; Z98.890 Other specified postprocedural states; Z79.899 Other long term (current) drug therapy; Z87.891 Personal history of nicotine dependence; Z82.49 Family history of ischemic heart disease and other diseases of the circulatory system; Z83.3 Family history of diabetes mellitus
CPT/HCPCS: 93623; 93662; 93654; 86900; 86901; 80053; 84443; 85025; 86850; C1759; C1894; C1769; C1760; C1732; J2001; J1644

== ENCOUNTER 2023-03-10 09:05 | Emergency (ER) | payer OTHER ==
[2023-03-10 09:20] VITALS: BP 134/68; PULSE 74; RESP 18; TEMP 98
--- NOTE | 2023-03-10 09:32 | ED ---
General Adult HPI - General Chief complaint: Chest Pain Stated complaint: Chest pain Time Seen by Provider: 03/10/23 09:21 Source: patient, RN notes reviewed, old records reviewed Mode of arrival: ambulatory Limitations: no limitations - History of Present Illness Initial comments: 47-year-old male history of nonischemic cardiomyopathy and history of ve ntricular tachycardia status post ablation approximately 3 weeks ago presents with intermittent chest pain since the procedure. Patient denies dyspnea. Denies known history of coronary artery disease. Denies cough. Denies fever. Pain is resolved. - Related Data Home Medications Medication Instructions Recorded Confirmed Losartan Potassium 100 mg PO QAM 07/13/22 02/19/23 Naproxen [Naprosyn] 500 mg PO BID PRN 07/13/22 02/19/23 Omeprazole [PriLOSEC] 20 mg PO BID 07/13/22 02/19/23 Ergocalciferol [Vitamin D2 (1250 1,250 mcg PO WEEKLY 02/15/23 02/19/23 Mcg = 72938 Iu)] Spironolactone [Aldactone] 25 mg PO DAILY 02/15/23 02/19/23 carvediloL [Coreg*] 12.5 mg PO BID 02/15/23 02/19/23 Allergies Allergy/AdvReac Type Severity Reaction Status Date / Time blueberry Allergy Anaphylaxis Verified 03/10/23 09:12 grapefruit Allergy Anaphylaxis Verified 03/10/23 09:12 Review of Systems ROS Statement: Those systems with pertinent positive or pertinent negative responses have been documented in the HPI. ROS Other: All systems not noted in ROS Statement are negative. Past Medical History Past Medical History: GERD/Reflux, Hypertension Additional Past Medical History / Comment(s): Hematuria, lower back pain, anxiety, bigeminy rhythm on 07/13/22, cardiac ablation 2022. History of Any Multi-Drug Resistant Organisms: None Reported Additional Past Surgical History / Comment(s): tooth extraction, Heart catheterization (june 2022) Past Anesthesia/Blood Transfusion Reactions: No Reported Reaction Past Psychological History: Anxiety Smoking Status: Former smoker Past Alcohol Use History: None Reported Past Drug Use History: None Reported - Past Family History Mother Family Medical History: Coronary Artery Disease (CAD), Diabetes Mellitus, Renal Disease Additional Family Medical History / Comment(s): CABG Father Family Medical History: Coronary Artery Disease (CAD) Additional Family Medical History / Comment(s): CABG General Exam Limitations: no limitations General appearance: alert, in no apparent distress Head exam: Present: atraumatic, normocephalic Eye exam: Present: normal appearance, PERRL ENT exam: Present: normal exam Neck exam: Present: normal inspection. Absent: tenderness, meningismus Respiratory exam: Present: normal lung sounds bilaterally. Absent: respiratory distress, wheezes Cardiovascular Exam: Present: regular rate, normal rhythm GI/Abdominal exam: Present: soft. Absent: distended, tenderness, guarding Neurological exam: Present: alert Psychiatric exam: Present: normal affect, normal mood Skin exam: Present: warm, dry, intact, normal color Course Vital Signs 03/10/23 09:08 Temperature 98 F Pulse Rate 74 Respiratory 18 Rate Blood Pressure 134/68 O2 Sat by Pulse 98 Oximetry Medical Decision Making - Medical Decision Making Was pt. sent in by a medical professional or institution (, PA, QUILLER TENDER, urgent care, hospital, or alf...) When possible be specific @ -No Did you speak to anyone other than the patient for history (EMS, parent, family, police, friend...)? What history was obtained from this source @ -No Did you review nursing and triage notes (agree or disagree)? Why? @ -I reviewed and agree with nursing and triage notes Were old charts reviewed (outside hosp., previous admission, EMS record, old EKG, old radiological studies, urgent care reports/EKG's, alf records)? Report findings @ -No old charts were reviewed Differential Diagnosis (chest pain, altered mental status, abdominal pain women, abdominal pain men, vaginal bleeding, weakness, fever, dyspnea, syncope, headache, dizziness, GI bleed, back pain, seizure, CVA, palpatations, mental health, musculoskeletal)? @ Differential Chest Pain: Stable Angina, Unstable Angina, STEMI, NSTEMI Aortic Dissection, Pneumothorax, Musculoskeletal, Esophageal Spasm GERD, Cholecystitis, Pancreatitis, Zoster, this is not meant to be an all-inclusive list. EKG interpreted by me (3pts min.). @ Sinus rhythm rate of 73, VA interval 154, QRS duration 95, QTC [address] segment elevation. X-rays interpreted by me (1pt min.). @2 view chest x-ray clear, no pneumothorax, no focal findings CT interpreted by me (1pt min.). @ -None done U/S interpreted by me (1pt. min.). @ -None done What testing was considered but not performed or refused? (CT, X-rays, U/S, labs)? Why? @ -None What meds were considered but not given or refused? Why? @ -None Did you discuss the management of the patient with other professionals (professionals i.e. DrMariia, PA, QUILLER TENDER, lab, RT, psych nurse, psychotherapist social worker, hand coremaker, teacher, disability hearing officer, showcase maker)? Give summary @ -No Was smoking cessation discussed for >3mins.? @ -No Was critical care preformed (if so, how long)? @ -No Were there social determinants of health that impacted care today? How? (Homelessness, low income, unemployed, alcoholism, drug addiction, transportation, low edu. Level, literacy, decrease access to med. care, fpc, rehab)? @ -No Was there de-escalation of care discussed even if they declined (Discuss DNR or withdrawal of care, Hospice)? DNR status @ -No What co-morbidities impacted this encounter? (DM, HTN, Smoking, COPD, CAD, Cancer, CVA, ARF, Chemo, Hep., AIDS, mental health diagnosis, sleep apnea, morbid obesity)? @ -[History of a nonischemic cardiomyopathy Was patient admitted / discharged? Hospital course, mention meds given and route, prescriptions, significant lab abnormalities, going to OR and other pertinent info. @47-year-old male with atypical left chest pain which is been present for the past several weeks. No difficulty breathing. No lower extremity pain or swelling. Pain is resolved time my evaluation. His EKG is sinus rhythm. Chest x-ray is clear. Normal CBC, normal CMP, negative troponin. Patient's pain is resolved at this time and likely musculoskeletal. Stable for outpatient follow- up with strict return parameters. Undiagnosed new problem with uncertain prognosis? @ -No Drug Therapy requiring intensive monitoring for toxicity (Heparin, Nitro, Insulin, Cardizem)? @ -No Were any procedures done? @ -No Diagnosis/symptom? @ -Chest pain Acute, or Chronic, or Acute on Chronic? @Acute Uncomplicated (without systemic symptoms) or Complicated (systemic symptoms)? @ -default Side effects of treatment? @ -No Exacerbation, Progression, or Severe Exacerbation? @ -No] Poses a threat to life or bodily function? How? (Chest pain, USA, [place], pneumonia, PE, COPD, DKA, ARF, appy, cholecystitis, CVA, Diverticulitis, Homicidal, Suicidal, threat to staff... and all critical care pts) @ -[Low risk at this time - Lab Data Result diagrams: 03/10/23 09:12 03/10/23 09:12 Lab Results 03/10/23 03/10/23 03/10/23 Range/Units 09:12 09:12 09:12 WBC 4.3 (3.8-10.6) k/uL RBC 4.47 (4.30-5.90) m/uL Hgb 12.4 L (13.0-17.5) gm/dL Hct 36.7 L (39.0-53.0) % MCV 82.0 (80.0-100.0) fL MCH 27.8 (25.0-35.0) pg MCHC 33.9 (31.0-37.0) g/dL RDW 14.2 (11.5-15.5) % Plt Count 107 L (150-450) k/uL MPV 10.2 Neutrophils % 51 % Lymphocytes % 33 % Monocytes % 6 % Eosinophils % 6 % Basophils % 1 % Neutrophils # 2.2 (1.3-7.7) k/uL Lymphocytes # 1.4 (1.0-4.8) k/uL Monocytes # 0.3 (0-1.0) k/uL Eosinophils # 0.3 (0-0.7) k/uL Basophils # 0.0 (0-0.2) k/uL PT 10.5 (10.0-12.5) sec INR 0.9 (<1.2) APTT 22.9 (22.0-30.0) sec Sodium 140 (137-145) mmol/L Potassium 4.3 (3.5-5.1) mmol/L Chloride 108 H (98-107) mmol/L Carbon Dioxide 21 L (22-30) mmol/L Anion Gap 11 mmol/L BUN 19 (9-20) mg/dL Creatinine 0.81 (0.66-1.25) mg/dL Est GFR (CKD-EPI)AfAm >90 (>60 ml/min/1.73 sqM) Est GFR (CKD-EPI)NonAf >90 (>60 ml/min/1.73 sqM) Glucose 151 H (74-99) mg/dL Calcium 9.2 (8.4-10.2) mg/dL Magnesium 1.6 (1.6-2.3) mg/dL Total Bilirubin 0.6 (0.2-1.3) mg/dL AST 29 (17-59) U/L ALT 31 (4-49) U/L Alkaline Phosphatase 60 (38-126) U/L Troponin I (0.000-0.034) ng/mL Total Protein 7.1 (6.3-8.2) g/dL Albumin 3.9 (3.5-5.0) g/dL 03/10/23 Range/Units 09:12 WBC (3.8-10.6) k/uL RBC (4.30-5.90) m/uL Hgb (13.0-17.5) gm/dL Hct (39.0-53.0) % MCV (80.0-100.0) fL MCH (25.0-35.0) pg MCHC (31.0-37.0) g/dL RDW (11.5-15.5) % Plt Count (150-450) k/uL MPV Neutrophils % % Lymphocytes % % Monocytes % % Eosinophils % % Basophils % % Neutrophils # (1.3-7.7) k/uL Lymphocytes # (1.0-4.8) k/uL Monocytes # (0-1.0) k/uL Eosinophils # (0-0.7) k/uL Basophils # (0-0.2) k/uL PT (10.0-12.5) sec INR (<1.2) APTT (22.0-30.0) sec Sodium (137-145) mmol/L Potassium (3.5-5.1) mmol/L Chloride (98-107) mmol/L Carbon Dioxide (22-30) mmol/L Anion Gap mmol/L BUN (9-20) mg/dL Creatinine (0.66-1.25) mg/dL Est GFR (CKD-EPI)AfAm (>60 ml/min/1.73 sqM) Est GFR (CKD-EPI)NonAf (>60 ml/min/1.73 sqM) Glucose (74-99) mg/dL Calcium (8.4-10.2) mg/dL Magnesium (1.6-2.3) mg/dL Total Bilirubin (0.2-1.3) mg/dL AST (17-59) U/L ALT (4-49) U/L Alkaline Phosphatase (38-126) U/L Troponin I <0.012 (0.000-0.034) ng/mL Total Protein (6.3-8.2) g/dL Albumin (3.5-5.0) g/dL Disposition Clinical Impression: Atypical chest pain Disposition: HOME SELF-CARE Condition: Good Instructions (If sedation given, give patient instructions): Chest Pain (ED) Is patient prescribed a controlled substance at d/c from ED?: No Referrals: Rj Segura MD [Primary Care Provider] - 1-2 days Oscar Barry MD [STAFF PHYSICIAN] - 1-2 days Time of Disposition: 10:24
--- NOTE | 2023-03-10 09:40 | XR ---
EXAMINATION TYPE: XR chest 2V DATE OF EXAM: 03/10/2023 COMPARISON: 08/05/2022 INDICATION: Chest pain TECHNIQUE: Frontal and lateral views of the chest are obtained. FINDINGS: The heart size is normal. The pulmonary vasculature is normal. The lungs are clear. IMPRESSION: 1. No acute pulmonary process.
[2023-03-10 09:49] LABS: Basophils % (A) 1 %; Eosinophils # (A) 0.3 k/uL (0-0.7); Eosinophils % (A) 6 %; HCT 36.7 % (39.0-53.0); HGB 12.4 gm/dL (13.0-17.5); Lymphocytes # (A) 1.4 k/uL (1.0-4.8); Lymphocytes % (A) 33 %; MCH 27.8 pg (25.0-35.0); MCHC 33.9 g/dL (31.0-37.0); Mean Platelet Volume 10.2; Monocytes # (A) 0.3 k/uL (0-1.0); Monocytes % (A) 6 %; Neutrophils # (A) 2.2 k/uL (1.3-7.7); Neutrophils % (A) 51 %; Platelet Count 107 k/uL (150-450); RBC 4.47 m/uL (4.30-5.90); RDW 14.2 % (11.5-15.5); WBC 4.3 k/uL (3.8-10.6)
[2023-03-10 09:58] LABS: INR 0.9 (<1.2)
[2023-03-10 09:59] LABS: Partial Thromboplastin Time 22.9 sec (22.0-30.0); Prothrombin Time 10.5 sec (10.0-12.5)
[2023-03-10 10:03] LABS: ALT 31 U/L (4-49); AST 29 U/L (17-59); African American GFR (CKD) >90 (>60 ml/min/1.73 sqM); Albumin 3.9 g/dL (3.5-5.0); Alkaline Phosphatase 60 U/L (38-126); Anion Gap 11 mmol/L; Blood Urea Nitrogen 19 mg/dL (9-20); Calcium 9.2 mg/dL (8.4-10.2); Carbon Dioxide 21 mmol/L (22-30); Chloride 108 mmol/L (98-107); Glucose 151 mg/dL (74-99); Magnesium 1.6 mg/dL (1.6-2.3); Non-African American GFR(CKD) >90 (>60 ml/min/1.73 sqM); Potassium 4.3 mmol/L (3.5-5.1); Sodium 140 mmol/L (137-145); Total Bilirubin 0.6 mg/dL (0.2-1.3); Total Protein 7.1 g/dL (6.3-8.2)
== END 2023-03-10 10:30 | disposition home or self-care (01) ==
LOC: EC 09:05
DX: R07.89 Other chest pain (principal); K21.9 Gastro-esophageal reflux disease without esophagitis; I10 Essential (primary) hypertension; F41.9 Anxiety disorder, unspecified; Z91.018 Allergy to other foods; Z79.899 Other long term (current) drug therapy; Z87.891 Personal history of nicotine dependence
CPT/HCPCS: 36415; 71046; 80053; 83735; 84484; 85025; 85610; 85730; 93005; 99285

== ENCOUNTER 2023-03-27 10:26 | Emergency (ER) | payer OTHER ==
--- NOTE | 2023-03-27 10:54 | ED ---
General Adult HPI - General Chief complaint: Chest Pain Stated complaint: Chest Pain, DAVID Time Seen by Provider: 03/27/23 10:28 Source: patient, EMS Mode of arrival: EMS Limitations: no limitations - History of Present Illness Initial comments: Dictation was produced using [employer] dictation software. please excuse any grammatical, word or spelling errors. Chief Complaint: 47-year-old male presents to the emergency department with chest pain History of Present Illness: Patient is a 47-year-old male who presents emergency department chest pain. Patient had a cardiac stress test yesterday. He has not had the results for it yet. Patient has been admitted to our facility multiple occasions for chest pain. Patient states that its like a pressure sitting on his chest. Not associated nausea or vomiting. No radiation of symptoms. Review shows that patient most recently had a cardiac catheterization June 2022 with no disease. Patient was brought in by EMS The ROS documented in this emergency department record has been reviewed and confirmed by me. Those systems with pertinent positive or negative responses have been documented in the HPI. All other systems are other negative and/or noncontributory. - Related Data Home Medications Medication Instructions Recorded Confirmed Naproxen [Naprosyn] 500 mg PO BID PRN 07/13/22 03/27/23 Omeprazole [PriLOSEC] 20 mg PO BID 07/13/22 03/27/23 Ergocalciferol [Vitamin D2 (1250 1,250 mcg PO QMONTHLY 02/15/23 03/27/23 Mcg = 64977 Iu)] Spironolactone [Aldactone] 25 mg PO DAILY 02/15/23 03/27/23 Losartan Potassium [Cozaar] 100 mg PO DAILY 03/27/23 03/27/23 carvediloL [Coreg] 25 mg PO BID 03/27/23 03/27/23 Allergies Allergy/AdvReac Type Severity Reaction Status Date / Time blueberry Allergy Anaphylaxis Verified 03/27/23 12:04 grapefruit Allergy Anaphylaxis Verified 03/27/23 12:04 Review of Systems ROS Statement: Those systems with pertinent positive or pertinent negative responses have been documented in the HPI. ROS Other: All systems not noted in ROS Statement are negative. Past Medical History Past Medical History: GERD/Reflux, Hypertension Additional Past Medical History / Comment(s): Hematuria, lower back pain, anxiety, bigeminy rhythm on 5/19/23, cardiac ablation 2022. History of Any Multi-Drug Resistant Organisms: None Reported Additional Past Surgical History / Comment(s): tooth extraction, Heart catheterization (june 2022) Past Anesthesia/Blood Transfusion Reactions: No Reported Reaction Past Psychological History: Anxiety Smoking Status: Former smoker Past Alcohol Use History: None Reported Past Drug Use History: None Reported - Past Family History Mother Family Medical History: Coronary Artery Disease (CAD), Diabetes Mellitus, Renal Disease Additional Family Medical History / Comment(s): CABG Father Family Medical History: Coronary Artery Disease (CAD) Additional Family Medical History / Comment(s): CABG General Exam - General Exam Comments Initial Comments: PHYSICAL EXAM: General Impression: Alert and oriented x3, not in acute distress HEENT: Normocephalic atraumatic, extra-ocular movements intact, pupils equal and reactive to light bilaterally, mucous membranes moist. Cardiovascular: Heart regular rate and rhythm Chest: Able to complete full sentences, no retractions, no tachypnea Abdomen: abdomen soft, non-tender, non-distended, no organomegaly Musculoskeletal: Pulses present and equal in all extremities, no peripheral edema Motor: no focal deficits noted Neurological: CN II-XII grossly intact, no focal motor or sensory deficits noted Skin: Intact with no visualized rashes Psych: Normal affect and mood Limitations: no limitations Course Vital Signs 03/27/23 03/27/23 03/27/23 10:29 11:16 12:30 Temperature 98 F Pulse Rate 74 73 74 Respiratory 18 20 23 Rate Blood Pressure 128/84 136/79 126/75 O2 Sat by Pulse 95 96 96 Oximetry EKG Findings - EKG Comments: EKG Findings:: My EKG interpretation: Ventricular rate 70, sinus rhythm,. 146, cures 97, QTc 385. No WI prolongation, no QTC prolongation, no ST or T-wave changes noted. Overall, this EKG is unremarkable Medical Decision Making - Medical Decision Making Was pt. sent in by a medical professional or institution (, PA, PAINTER AIRCRAFT, urgent care, hospital, or shelter...) When possible be specific @ -No Did you speak to anyone other than the patient for history (EMS, parent, family, police, friend...)? What history was obtained from this source @ -Case discussed with EMS Did you review nursing and triage notes (agree or disagree)? Why? @ -I reviewed and agree with nursing and triage notes Were old charts reviewed (outside hosp., previous admission, EMS record, old EKG, old radiological studies, urgent care reports/EKG's, shelter records)? Report findings @ -Chart review was performed. Patient had cardiac catheterization on July 16, 2022 had a cardiac catheterization that showed no coronary artery disease. Differential Diagnosis (chest pain, altered mental status, abdominal pain women, abdominal pain men, vaginal bleeding, musculoskeletal, weakness, fever, dyspnea, syncope, headache, dizziness, GI bleed, back pain, seizure, CVA, palpatations, mental health)? @ -Differential Chest Pain: Stable Angina, Unstable Angina, STEMI, NSTEMI Aortic Dissection, Pneumothorax, Musculoskeletal, Esophageal Spasm GERD, Cholecystitis, Pancreatitis, Zoster, this is not meant to be an all-inclusive list. EKG interpreted by me (3pts min.). @ -See above X-rays interpreted by me (1pt min.). @ -Chest x-ray shows no acute processes CT interpreted by me (1pt min.). @ -None done U/S interpreted by me (1pt. min.). @ -None done What testing was considered but not performed or refused? (CT, X-rays, U/S, labs)? Why? @ -None What meds were considered but not given or refused? Why? @ -None Did you discuss the management of the patient with other professionals (professionals i.e. , PA, PAINTER AIRCRAFT, lab, RT, psych nurse, clinical social worker, commercial horticulture instructor, teacher, network security officer, watch caser)? Give summary @ -No Was smoking cessation discussed for >3mins.? @ -No Was critical care preformed (if so, how long)? @ -No Were there social determinants of health that impacted care today? How? (Homelessness, low income, unemployed, alcoholism, drug addiction, transportation, low edu. Level, literacy, decrease access to med. care, shelter, rehab)? @ -No Was there de-escalation of care discussed even if they declined (Discuss DNR or withdrawal of care, Hospice)? DNR status @ -No What co-morbidities impacted this encounter? (DM, HTN, Smoking, COPD, CAD, Cancer, CVA, ARF, Chemo, Hep., AIDS, mental health diagnosis, sleep apnea, morbid obesity)? @ -None Was patient admitted / discharged? Hospital course, mention meds given and route, prescriptions, significant lab abnormalities, going to OR and other pertinent info. @ -47-year-old male presents emergency department with chest pain. Patient is well-known to emergency department for multiple visitations for chest pain. He had a normal cardiac cath less than a year ago. He has good outpatient follow- up with head loader. EKG is unremarkable. Laboratory evaluation is unremarkable. Troponin is negative. Patient cleared for discharge. Undiagnosed new problem with uncertain prognosis? @ -No Drug Therapy requiring intensive monitoring for toxicity (Heparin, Nitro, Insulin, Cardizem)? @ -No Were any procedures done? @ -No Diagnosis/symptom? Acute, or Chronic, or Acute on Chronic? Uncomplicated (without systemic symptoms) or Complicated (systemic symptoms)? @ -Chest pain, no high risk features Side effects of treatment? @ -No Exacerbation, Progression, or Severe Exacerbation? @ -No Poses a threat to life or bodily function? How? (Chest pain, [place], [place], pneumonia, PE, COPD, DKA, ARF, appy, cholecystitis, CVA, Diverticulitis, Homicidal, Suicidal, threat to staff... and all critical care pts) @ -No - Lab Data Result diagrams: 03/27/23 11:12 03/27/23 11:12 Lab Results 03/27/23 03/27/23 03/27/23 Range/Units 11:12 11:12 11:12 WBC 3.6 L (3.8-10.6) k/uL RBC 4.75 (4.30-5.90) m/uL Hgb 13.4 (13.0-17.5) gm/dL Hct 38.9 L (39.0-53.0) % MCV 81.9 (80.0-100.0) fL MCH 28.3 (25.0-35.0) pg MCHC 34.6 (31.0-37.0) g/dL RDW 13.8 (11.5-15.5) % Plt Count 133 L (150-450) k/uL MPV 10.3 Neutrophils % 52 % Lymphocytes % 34 % Monocytes % 7 % Eosinophils % 4 % Basophils % 1 % Neutrophils # 1.9 (1.3-7.7) k/uL Lymphocytes # 1.2 (1.0-4.8) k/uL Monocytes # 0.3 (0-1.0) k/uL Eosinophils # 0.2 (0-0.7) k/uL Basophils # 0.0 (0-0.2) k/uL PT 10.7 (10.0-12.5) sec INR 1.0 (<1.2) APTT 23.5 (22.0-30.0) sec Sodium 139 (137-145) mmol/L Potassium 4.6 (3.5-5.1) mmol/L Chloride 110 H (98-107) mmol/L Carbon Dioxide 24 (22-30) mmol/L Anion Gap 5 mmol/L BUN 19 (9-20) mg/dL Creatinine 1.02 (0.66-1.25) mg/dL Est GFR (CKD-EPI)AfAm >90 (>60 ml/min/1.73 sqM) Est GFR (CKD-EPI)NonAf 89 (>60 ml/min/1.73 sqM) Glucose 119 H (74-99) mg/dL Calcium 9.3 (8.4-10.2) mg/dL Magnesium 1.8 (1.6-2.3) mg/dL Total Bilirubin 0.6 (0.2-1.3) mg/dL AST 30 (17-59) U/L ALT 32 (4-49) U/L Alkaline Phosphatase 56 (38-126) U/L Troponin I (0.000-0.034) ng/mL Total Protein 7.4 (6.3-8.2) g/dL Albumin 4.3 (3.5-5.0) g/dL 03/27/23 Range/Units 11:12 WBC (3.8-10.6) k/uL RBC (4.30-5.90) m/uL Hgb (13.0-17.5) gm/dL Hct (39.0-53.0) % MCV (80.0-100.0) fL MCH (25.0-35.0) pg MCHC (31.0-37.0) g/dL RDW (11.5-15.5) % Plt Count (150-450) k/uL MPV Neutrophils % % Lymphocytes % % Monocytes % % Eosinophils % % Basophils % % Neutrophils # (1.3-7.7) k/uL Lymphocytes # (1.0-4.8) k/uL Monocytes # (0-1.0) k/uL Eosinophils # (0-0.7) k/uL Basophils # (0-0.2) k/uL PT (10.0-12.5) sec INR (<1.2) APTT (22.0-30.0) sec Sodium (137-145) mmol/L Potassium (3.5-5.1) mmol/L Chloride (98-107) mmol/L Carbon Dioxide (22-30) mmol/L Anion Gap mmol/L BUN (9-20) mg/dL Creatinine (0.66-1.25) mg/dL Est GFR (CKD-EPI)AfAm (>60 ml/min/1.73 sqM) Est GFR (CKD-EPI)NonAf (>60 ml/min/1.73 sqM) Glucose (74-99) mg/dL Calcium (8.4-10.2) mg/dL Magnesium (1.6-2.3) mg/dL Total Bilirubin (0.2-1.3) mg/dL AST (17-59) U/L ALT (4-49) U/L Alkaline Phosphatase (38-126) U/L Troponin I <0.012 (0.000-0.034) ng/mL Total Protein (6.3-8.2) g/dL Albumin (3.5-5.0) g/dL Disposition Clinical Impression: Chest pain Disposition: HOME SELF-CARE Condition: Good Instructions (If sedation given, give patient instructions): Chest Pain (ED) Is patient prescribed a controlled substance at d/c from ED?: No Referrals: Rj Segura MD [Primary Care Provider] - 1-2 days Time of Disposition: 12:44
[2023-03-27 10:58] VITALS: PULSE 74; TEMP 98
[2023-03-27 11:34] LABS: Basophils % (A) 1 %; Eosinophils # (A) 0.2 k/uL (0-0.7); Eosinophils % (A) 4 %; HCT 38.9 % (39.0-53.0); HGB 13.4 gm/dL (13.0-17.5); Lymphocytes # (A) 1.2 k/uL (1.0-4.8); Lymphocytes % (A) 34 %; MCH 28.3 pg (25.0-35.0); MCHC 34.6 g/dL (31.0-37.0); MCV 81.9 fL (80.0-100.0); Mean Platelet Volume 10.3; Monocytes # (A) 0.3 k/uL (0-1.0); Monocytes % (A) 7 %; Neutrophils # (A) 1.9 k/uL (1.3-7.7); Neutrophils % (A) 52 %; Partial Thromboplastin Time 23.5 sec (22.0-30.0); Platelet Count 133 k/uL (150-450); Prothrombin Time 10.7 sec (10.0-12.5); RBC 4.75 m/uL (4.30-5.90); RDW 13.8 % (11.5-15.5); WBC 3.6 k/uL (3.8-10.6)
--- NOTE | 2023-03-27 11:58 | XR ---
EXAMINATION TYPE: XR chest 2V DATE OF EXAM: 03/27/2023 COMPARISON: 03/10/2023 HISTORY: Chest pain TECHNIQUE: Frontal and lateral views of the chest are obtained. FINDINGS: There is no focal air space opacity. No evidence for pneumothorax. No pleural effusion. The cardiac silhouette size is within normal limits. The osseous structures are grossly intact. IMPRESSION: 1. No acute cardiopulmonary process.
[2023-03-27 12:12] LABS: ALT 32 U/L (4-49); AST 30 U/L (17-59); African American GFR (CKD) >90 (>60 ml/min/1.73 sqM); Albumin 4.3 g/dL (3.5-5.0); Alkaline Phosphatase 56 U/L (38-126); Anion Gap 5 mmol/L; Blood Urea Nitrogen 19 mg/dL (9-20); Calcium 9.3 mg/dL (8.4-10.2); Carbon Dioxide 24 mmol/L (22-30); Chloride 110 mmol/L (98-107); Glucose 119 mg/dL (74-99); Magnesium 1.8 mg/dL (1.6-2.3); Non-African American GFR(CKD) 89 (>60 ml/min/1.73 sqM); Potassium 4.6 mmol/L (3.5-5.1); Sodium 139 mmol/L (137-145); Total Bilirubin 0.6 mg/dL (0.2-1.3); Total Protein 7.4 g/dL (6.3-8.2)
[2023-03-27 12:53] VITALS: BP 126/75; RESP 23
== END 2023-03-27 13:00 | disposition home or self-care (01) ==
LOC: EC 10:26
DX: R07.89 Other chest pain (principal); I10 Essential (primary) hypertension; K21.9 Gastro-esophageal reflux disease without esophagitis; Z79.899 Other long term (current) drug therapy; Z91.018 Allergy to other foods; Z87.891 Personal history of nicotine dependence
CPT/HCPCS: 36415; 71046; 80053; 83735; 84484; 85025; 85610; 85730; 93005; 99285

== ENCOUNTER 2023-06-12 14:55 | Emergency (ER) | payer OTHER ==
--- NOTE | 2023-06-12 15:43 | ED ---
General Adult HPI - General Chief complaint: Chest Pain Stated complaint: chest pain Time Seen by Provider: 06/12/23 15:20 Source: patient Mode of arrival: ambulatory Limitations: no limitations - History of Present Illness Initial comments: Dictation was produced using [employer] dictation software. please excuse any grammatical, word or spelling errors. Chief Complaint: 47-year-old male with chest pain History of Present Illness: Patient is a 47-year-old male presents emergency department with chest pain. Patient states he has been having on and off chest pain last night for several hours. States that the pain goes down his arm. Patient has been to the emergency department in the past for chest pain. States that the pain is sharp not associated with diaphoresis or nausea. Patient has no known history of coronary artery disease. He did have a cardiac catheterization last year. The ROS documented in this emergency department record has been reviewed and confirmed by me. Those systems with pertinent positive or negative responses have been documented in the HPI. All other systems are other negative and/or noncontributory. - Related Data Home Medications Medication Instructions Recorded Confirmed Naproxen [Naprosyn] 500 mg PO BID PRN 07/13/22 03/27/23 Omeprazole [PriLOSEC] 20 mg PO BID 07/13/22 03/27/23 Ergocalciferol [Vitamin D2 (1250 1,250 mcg PO QMONTHLY 02/15/23 03/27/23 Mcg = 36454 Iu)] Spironolactone [Aldactone] 25 mg PO DAILY 02/15/23 03/27/23 Losartan Potassium [Cozaar] 100 mg PO DAILY 03/27/23 03/27/23 carvediloL [Coreg] 25 mg PO BID 03/27/23 03/27/23 Allergies Allergy/AdvReac Type Severity Reaction Status Date / Time blueberry Allergy Anaphylaxis Verified 06/12/23 15:11 grapefruit Allergy Anaphylaxis Verified 06/12/23 15:11 Review of Systems ROS Statement: Those systems with pertinent positive or pertinent negative responses have been documented in the HPI. ROS Other: All systems not noted in ROS Statement are negative. Past Medical History Past Medical History: GERD/Reflux, Hypertension Additional Past Medical History / Comment(s): Hematuria, lower back pain, an xiety, bigeminy rhythm on 07/13/22, cardiac ablation 2022. History of Any Multi-Drug Resistant Organisms: None Reported Additional Past Surgical History / Comment(s): tooth extraction, Heart catheterization (june 2022) Past Anesthesia/Blood Transfusion Reactions: No Reported Reaction Past Psychological History: Anxiety Smoking Status: Former smoker Past Alcohol Use History: None Reported Past Drug Use History: None Reported - Past Family History Mother Family Medical History: Coronary Artery Disease (CAD), Diabetes Mellitus, Renal Disease Additional Family Medical History / Comment(s): CABG Father Family Medical History: Coronary Artery Disease (CAD) Additional Family Medical History / Comment(s): CABG General Exam - General Exam Comments Initial Comments: PHYSICAL EXAM: General Impression: Alert and oriented x3, not in acute distress HEENT: Normocephalic atraumatic, extra-ocular movements intact, pupils equal and reactive to light bilaterally, mucous membranes moist. Cardiovascular: Heart regular rate and rhythm Chest: Able to complete full sentences, no retractions, no tachypnea Abdomen: abdomen soft, non-tender, non-distended, no organomegaly Musculoskeletal: Pulses present and equal in all extremities, no peripheral edema Motor: no focal deficits noted Neurological: CN II-XII grossly intact, no focal motor or sensory deficits noted Skin: Intact with no visualized rashes Psych: Normal affect and mood Limitations: no limitations Course Vital Signs 06/12/23 15:06 Temperature 97.8 F Pulse Rate 65 Respiratory 18 Rate Blood Pressure 122/93 O2 Sat by Pulse 98 Oximetry Medical Decision Making - Medical Decision Making Was pt. sent in by a medical professional or institution (, PA, PROCESS CHEESE COOKER, urgent care, hospital, or alf...) When possible be specific @ -No Did you speak to anyone other than the patient for history (EMS, parent, family, police, friend...)? What history was obtained from this source @ -No Did you review nursing and triage notes (agree or disagree)? Why? @ -I reviewed and agree with nursing and triage notes Were old charts reviewed (outside hosp., previous admission, EMS record, old EKG, old radiological studies, urgent care reports/EKG's, alf records)? Report findings @ -Cath report from June 2022 was reviewed showing normal coronaries Differential Diagnosis (chest pain, altered mental status, abdominal pain women, abdominal pain men, vaginal bleeding, musculoskeletal, weakness, fever, dyspnea, syncope, headache, dizziness, GI bleed, back pain, seizure, CVA, palpatations, mental health)? @ -Differential Chest Pain: Stable Angina, Unstable Angina, STEMI, NSTEMI Aortic Dissection, Pneumothorax, Musculoskeletal, Esophageal Spasm GERD, Cholecystitis, Pancreatitis, Zoster, this is not meant to be an all-inclusive list. EKG interpreted by me (3pts min.). @ -None done X-rays interpreted by me (1pt min.). @ -No acute processes on chest x-ray CT interpreted by me (1pt min.). @ -None done U/S interpreted by me (1pt. min.). @ -None done What testing was considered but not performed or refused? (CT, X-rays, U/S, labs)? Why? @ -None What meds were considered but not given or refused? Why? @ -None Did you discuss the management of the patient with other professionals (professionals i.e. , PA, [employer] CHE[employer]OOKER, lab, RT, psych nurse, nephrology social worker, iron pellet tester, teacher, senior escrow officer, case worker)? Give summary @ -No Was smoking cessation discussed for >3mins.? @ -No Was critical care preformed (if so, how long)? @ -No Were there social determinants of health that impacted care today? How? (Sofie elessness, low income, unemployed, alcoholism, drug addiction, transportation, low edu. Level, literacy, decrease access to med. care, penitentiary, rehab)? @ -No Was there de-escalation of care discussed even if they declined (Discuss DNR or withdrawal of care, Hospice)? DNR status @ -No What co-morbidities impacted this encounter? (DM, HTN, Smoking, COPD, CAD, Cancer, CVA, ARF, Chemo, Hep., AIDS, mental health diagnosis, sleep apnea, morbid obesity)? @ -None Was patient admitted / discharged? Hospital course, mention meds given and route, prescriptions, significant lab abnormalities, going to OR and other pertinent info. @ -47-year-old male with atypical chest pain. Vital signs upon arrival are within acceptable limits. Patient has no known history of coronary artery disease. He had a cardiac cath in June of last year that showed normal coronary arteries. Laboratory evaluation is unremarkable. X-ray is nonacute. Troponins negative. Patient observed emergency department. Patient discharged told to follow-up with his primary care doctor. Undiagnosed new problem with uncertain prognosis? @ -No Drug Therapy requiring intensive monitoring for toxicity (Heparin, Nitro, Insulin, Cardizem)? @ -No Were any procedures done? @ -No Diagnosis/symptom? Acute, or Chronic, or Acute on Chronic? Uncomplicated (without systemic symptoms) or Complicated (systemic symptoms)? @ -Chest pain, no high risk features Side effects of treatment? @ -No Exacerbation, Progression, or Severe Exacerbation? @ -No Poses a threat to life or bodily function? How? (Chest pain, [place], [place], pneumonia, PE, COPD, DKA, ARF, appy, cholecystitis, CVA, Diverticulitis, Homicidal, Suicidal, threat to staff... and all critical care pts) @ -No - Lab Data Result diagrams: 06/12/23 15:52 06/12/23 15:52 Lab Results 06/12/23 06/12/23 06/12/23 Range/Units 15:52 15:52 15:52 WBC 4.9 (3.8-10.6) k/uL RBC 4.71 (4.30-5.90) m/uL Hgb 12.7 L (13.0-17.5) gm/dL Hct 39.1 (39.0-53.0) % MCV 83.0 (80.0-100.0) fL MCH 27.0 (25.0-35.0) pg MCHC 32.5 (31.0-37.0) g/dL RDW 13.4 (11.5-15.5) % Plt Count 123 L (150-450) k/uL MPV 10.7 Neutrophils % 56 % Lymphocytes % 30 % Monocytes % 6 % Eosinophils % 5 % Basophils % 1 % Neutrophils # 2.7 (1.3-7.7) k/uL Lymphocytes # 1.5 (1.0-4.8) k/uL Monocytes # 0.3 (0-1.0) k/uL Eosinophils # 0.3 (0-0.7) k/uL Basophils # 0.0 (0-0.2) k/uL PT 10.0 (10.0-12.5) sec INR 0.9 (<1.2) APTT 23.7 (22.0-30.0) sec Sodium 141 (137-145) mmol/L Potassium 4.4 (3.5-5.1) mmol/L Chloride 109 H (98-107) mmol/L Carbon Dioxide 22 (22-30) mmol/L Anion Gap 10 mmol/L BUN 21 H (9-20) mg/dL Creatinine 0.99 (0.66-1.25) mg/dL Est GFR (CKD-EPI)AfAm >90 (>60 ml/min/1.73 sqM) Est GFR (CKD-EPI)NonAf >90 (>60 ml/min/1.73 sqM) Glucose 97 (74-99) mg/dL Calcium 9.1 (8.4-10.2) mg/dL Magnesium 1.6 (1.6-2.3) mg/dL Total Bilirubin 0.5 (0.2-1.3) mg/dL AST 29 (17-59) U/L ALT 32 (4-49) U/L Alkaline Phosphatase 70 (38-126) U/L Troponin I (0.000-0.034) ng/mL Total Protein 7.3 (6.3-8.2) g/dL Albumin 4.1 (3.5-5.0) g/dL 06/12/23 Range/Units 15:52 WBC (3.8-10.6) k/uL RBC (4.30-5.90) m/uL Hgb (13.0-17.5) gm/dL Hct (39.0-53.0) % MCV (80.0-100.0) fL MCH (25.0-35.0) pg MCHC (31.0-37.0) g/dL RDW (11.5-15.5) % Plt Count (150-450) k/uL MPV Neutrophils % % Lymphocytes % % Monocytes % % Eosinophils % % Basophils % % Neutrophils # (1.3-7.7) k/uL Lymphocytes # (1.0-4.8) k/uL Monocytes # (0-1.0) k/uL Eosinophils # (0-0.7) k/uL Basophils # (0-0.2) k/uL PT (10.0-12.5) sec INR (<1.2) APTT (22.0-30.0) sec Sodium (137-145) mmol/L Potassium (3.5-5.1) mmol/L Chloride (98-107) mmol/L Carbon Dioxide (22-30) mmol/L Anion Gap mmol/L BUN (9-20) mg/dL Creatinine (0.66-1.25) mg/dL Est GFR (CKD-EPI)AfAm (>60 ml/min/1.73 sqM) Est GFR (CKD-EPI)NonAf (>60 ml/min/1.73 sqM) Glucose (74-99) mg/dL Calcium (8.4-10.2) mg/dL Magnesium (1.6-2.3) mg/dL Total Bilirubin (0.2-1.3) mg/dL AST (17-59) U/L ALT (4-49) U/L Alkaline Phosphatase (38-126) U/L Troponin I <0.012 (0.000-0.034) ng/mL Total Protein (6.3-8.2) g/dL Albumin (3.5-5.0) g/dL Disposition Clinical Impression: Chest pain Disposition: HOME SELF-CARE Condition: Good Instructions (If sedation given, give patient instructions): Chest Pain (ED) Is patient prescribed a controlled substance at d/c from ED?: No Referrals: Rj Segura MD [Primary Care Provider] - 1-2 days Time of Disposition: 17:28
[2023-06-12 16:12] VITALS: RESP 18
[2023-06-12 16:17] LABS: Basophils % (A) 1 %; Eosinophils # (A) 0.3 k/uL (0-0.7); Eosinophils % (A) 5 %; HCT 39.1 % (39.0-53.0); HGB 12.7 gm/dL (13.0-17.5); Lymphocytes # (A) 1.5 k/uL (1.0-4.8); Lymphocytes % (A) 30 %; MCHC 32.5 g/dL (31.0-37.0); Mean Platelet Volume 10.7; Monocytes # (A) 0.3 k/uL (0-1.0); Monocytes % (A) 6 %; Neutrophils # (A) 2.7 k/uL (1.3-7.7); Neutrophils % (A) 56 %; Platelet Count 123 k/uL (150-450); RBC 4.71 m/uL (4.30-5.90); RDW 13.4 % (11.5-15.5); WBC 4.9 k/uL (3.8-10.6)
--- NOTE | 2023-06-12 16:19 | XR ---
EXAMINATION TYPE: XR chest 2V DATE OF EXAM: 06/12/2023 COMPARISON: 03/27/2023 HISTORY: 47-year-old male with chest pain TECHNIQUE: PA and lateral views FINDINGS: Heart upper limits of normal size. Aorta and pulmonary vasculature are within normal limits. Some car otid vascular markings and low lung volumes without consolidation or pleural effusion. IMPRESSION: Some hypoventilatory changes. No definite acute process.
[2023-06-12 16:28] LABS: ALT 32 U/L (4-49); AST 29 U/L (17-59); African American GFR (CKD) >90 (>60 ml/min/1.73 sqM); Albumin 4.1 g/dL (3.5-5.0); Alkaline Phosphatase 70 U/L (38-126); Anion Gap 10 mmol/L; Blood Urea Nitrogen 21 mg/dL (9-20); Calcium 9.1 mg/dL (8.4-10.2); Carbon Dioxide 22 mmol/L (22-30); Chloride 109 mmol/L (98-107); Glucose 97 mg/dL (74-99); Magnesium 1.6 mg/dL (1.6-2.3); Non-African American GFR(CKD) >90 (>60 ml/min/1.73 sqM); Potassium 4.4 mmol/L (3.5-5.1); Sodium 141 mmol/L (137-145); Total Bilirubin 0.5 mg/dL (0.2-1.3); Total Protein 7.3 g/dL (6.3-8.2)
[2023-06-12 16:40] LABS: INR 0.9 (<1.2); Partial Thromboplastin Time 23.7 sec (22.0-30.0)
[2023-06-12 18:06] VITALS: BP 127/85; PULSE 75; TEMP 98.5
== END 2023-06-12 17:39 | disposition home or self-care (01) ==
LOC: EC 14:55
DX: R07.9 Chest pain, unspecified (principal); Z87.891 Personal history of nicotine dependence; Z91.018 Allergy to other foods
CPT/HCPCS: 36415; 71046; 80053; 83735; 84484; 85025; 85610; 85730; 99285

== ENCOUNTER 2023-06-20 19:08 | Observation (INO) | payer OTHER ==
[2023-06-20 19:28] LABS: Basophils % (A) 1 %; Eosinophils # (A) 0.3 k/uL (0-0.7); Eosinophils % (A) 5 %; HGB 12.9 gm/dL (13.0-17.5); Lymphocytes % (A) 31 %; MCH 27.8 pg (25.0-35.0); MCV 84.2 fL (80.0-100.0); Mean Platelet Volume 10.3; Monocytes # (A) 0.3 k/uL (0-1.0); Monocytes % (A) 5 %; Neutrophils # (A) 3.7 k/uL (1.3-7.7); Neutrophils % (A) 57 %; Platelet Count 127 k/uL (150-450); RBC 4.63 m/uL (4.30-5.90); RDW 13.5 % (11.5-15.5); WBC 6.4 k/uL (3.8-10.6)
[2023-06-20 19:37] LABS: INR 0.9 (<1.2); Partial Thromboplastin Time 23.5 sec (22.0-30.0); Prothrombin Time 10.4 sec (10.0-12.5)
[2023-06-20 19:42] LABS: ALT 36 U/L (4-49); AST 29 U/L (17-59); African American GFR (CKD) >90 (>60 ml/min/1.73 sqM); Albumin 4.2 g/dL (3.5-5.0); Alkaline Phosphatase 67 U/L (38-126); Anion Gap 7 mmol/L; Blood Urea Nitrogen 21 mg/dL (9-20); Carbon Dioxide 24 mmol/L (22-30); Chloride 110 mmol/L (98-107); Glucose 139 mg/dL (74-99); Magnesium 1.6 mg/dL (1.6-2.3); Non-African American GFR(CKD) 89 (>60 ml/min/1.73 sqM); Potassium 4.7 mmol/L (3.5-5.1); Sodium 141 mmol/L (137-145); Total Bilirubin 0.4 mg/dL (0.2-1.3); Total Protein 7.3 g/dL (6.3-8.2)
--- NOTE | 2023-06-20 20:02 | ED ---
Chest Pain HPI - General Source: patient, RN notes reviewed Mode of arrival: ambulatory Limitations: no limitations <Angelita Alba - Last Filed: 06/20/23 20:00> - General Source: patient, RN notes reviewed, old records reviewed <Jj Ziegler - Last Filed: 06/20/23 21:19> - General Chief Complaint: Chest Pain Stated Complaint: Chest pain Time Seen by Provider: 06/20/23 19:40 - History of Present Illness Initial Comments: Quick [id number] male presenting with chest pain x 4 hours. States he is also experiencing some shortness of breath. He states he has had similar symptoms before. (Angelita Alba) Patient is a 47-year-old male with past medical history remarkable for hypertension, GERD, who presents emergency department complaining of left-sided chest pain. Has been worked up in the past for this with no clear etiology. States it has been more persistent over the last few days. Was seen here recently for similar complaints. Comes and goes without any known palliative or provocative factors. Describes as a pressure-like sensation with occasional radiation of the left arm. Denies any shortness of breath, nausea, vomiting. Denies any sweating. Has no other acute complaints at this time. States the pain is minimal at this time. Patient originally seen as a quick note. (Jj Ziegler) - Related Data Home Medications Medication Instructions Recorded Confirmed Naproxen [Naprosyn] 500 mg PO BID 07/13/22 06/20/23 Omeprazole [PriLOSEC] 20 mg PO BID 07/13/22 06/20/23 Ergocalciferol [Vitamin D2 (1250 1,250 mcg PO QMONTHLY 02/15/23 06/20/23 Mcg = 02289 Iu)] Spironolactone [Aldactone] 25 mg PO DAILY 02/15/23 06/20/23 Losartan Potassium [Cozaar] 100 mg PO DAILY 03/27/23 06/20/23 carvediloL [Coreg] 25 mg PO BID 03/27/23 06/20/23 Allergies Allergy/AdvReac Type Severity Reaction Status Date / Time blueberry Allergy Anaphylaxis Verified 06/20/23 20:38 grapefruit Allergy Anaphylaxis Verified 06/20/23 20:38 Review of Systems ROS Other: All systems not noted in ROS Statement are negative. <Angelita Alba - Last Filed: 06/20/23 20:00> ROS Other: All systems not noted in ROS Statement are negative. <Jj Ziegler - Last Filed: 06/20/23 21:19> ROS Statement: Those systems with pertinent positive or pertinent negative responses have been documented in the HPI. Review of Systems: CONST: Denies fever EYES: Denies blurry vision ENT: Denies nasal congestion C/V: Endorses chest pain RESP: Denies shortness of breath GI: Denies abdominal pain : Denies dysuria SKIN: Denies rash. MSK: Denies joint pain. NEURO: Denies headache (Jj Ziegler) EKG Findings - EKG Comments: EKG Findings:: 12-lead Electrocardiogram Interpretation Note. EKG was reviewed and interpreted by myself. 12-lead ECG performed at 1912 is interpreted by me as revealing normal sinus rhythm at a rate of 72 beats per minute. [place] is normal. [place] interval is 144 ms, QRS duration is 94 ms, QTc is 378 ms.. Chronic T wave inversions in lead III was seen on prior EKGs from June 12, 2023. There were no obvious acute ST or T wave abnormalities to suggest myocardial ischemia or injury. R wave progression across the precordium was satisfactory. By my interpretation this EKG is non-diagnostic for acute ischemia. 12-lead Electrocardiogram Interpretation Note. EKG was reviewed and interpreted by myself. 12-lead ECG performed at 2040 is interpreted by me as revealing normal sinus rhythm at a rate of 74 beats per minute. [place] is normal. [place] interval is 147 ms, QRS duration is 84 ms, QTc is 368 ms. Chronic T wave inversion once again redemonstrated in lead III.. There were no ST or T wave abnormalities to suggest myocardial ischemia or injury. R wave progression across the precordium was satisfactory. By my interpretation this EKG is non-diagnostic for acute ischemia. No dynamic changes. - EKG Results: EKG: interpreted by ERMD <Jj Ziegler - Last Filed: 06/20/23 21:19> Past Medical History Past Medical History: GERD/Reflux, Hypertension Additional Past Medical History / Comment(s): Hematuria, lower back pain, anxiety, bigeminy rhythm on 07/13/22, cardiac ablation 2022. History of Any Multi-Drug Resistant Organisms: None Reported Additional Past Surgical History / Comment(s): tooth extraction, Heart catheterization (june 2022) Past Anesthesia/Blood Transfusion Reactions: No Reported Reaction Past Psychological History: Anxiety Smoking Status: Former smoker Past Alcohol Use History: None Reported Past Drug Use History: None Reported - Past Family History Mother Family Medical History: Coronary Artery Disease (CAD), Diabetes Mellitus, Renal Disease Additional Family Medical History / Comment(s): CABG Father Family Medical History: Coronary Artery Disease (CAD) Additional Family Medical History / Comment(s): CABG <Angelita Alba - Last Filed: 06/20/23 20:00> General Exam Limitations: no limitations <Angelita Alba - Last Filed: 06/20/23 20:00> <Jj Ziegler - Last Filed: 06/20/23 21:19> - General Exam Comments Initial Comments: Visual Physical Exam Vital signs reviewed General: Well-appearing, nontoxic, no acute distress. Head: Normocephalic, atraumatic Eyes: PERRLA, EOMI ENT: Airway patent Chest: Nonlabored breathing Skin: No visual rash, normal skin tone Neuro: Alert and oriented 3 Musculoskeletal: No gross abnormalities (Angelita Alba) General: Appears in no acute distress. HEAD: Normal with no signs of head trauma. EYES: PERRLA, EOMI, conjunctiva normal, no discharge. ENT: Hearing grossly intact, normal oropharynx. RESPIRATORY: Clear breath sounds bilaterally. No wheezes, rales, or rhonchi. C/V: Regular rate and rhythm. S1 and S2 auscultated, no edema, peripheral pulses 2+ and intact throughout. Chest pain not reproducible with palpation. ABD: Abd is soft, nontender, nondistended EXT: Normal range of motion, no obvious deformity SKIN: No rashes or lesions observed on exposed skin. NEURO: Alert and oriented x 4. (Jj Ziegler) Course Vital Signs 06/20/23 06/20/23 06/20/23 19:10 20:18 20:21 Temperature 97.8 F Pulse Rate 65 83 90 Respiratory 18 16 18 Rate Blood Pressure 152/89 125/88 121/67 O2 Sat by Pulse 98 98 95 Oximetry 06/20/23 20:42 Temperature Pulse Rate 77 Respiratory 20 Rate Blood Pressure 128/85 O2 Sat by Pulse 96 Oximetry Chest Pain MDM <Angelita Alba - Last Filed: 06/20/23 20:00> <Jj Ziegler - Last Filed: 06/20/23 21:19> - MDM I completed the quick note portion of this chart signed Angelita Alba PA-C (Angelita Alba) Was pt. sent in by a medical professional or institution (FUNMILAYO Sarmiento, VETERINARY TECHNOLOGIST, urgent care, hospital, or fdc...) When possible be specific @ -No Did you speak to anyone other than the patient for history (EMS, parent, family, police, friend...)? What history was obtained from this source @ -No Did you review nursing and triage notes (agree or disagree)? Why? @ -I reviewed and agree with nursing and triage notes Were old charts reviewed (outside hosp., previous admission, EMS record, old EKG, old radiological studies, urgent care reports/EKG's, fdc records)? Report findings @ -Old charts reviewed Differential Diagnosis (chest pain, altered mental status, abdominal pain women, abdominal pain men, vaginal bleeding, weakness, fever, dyspnea, syncope, headache, dizziness, GI bleed, back pain, seizure, CVA, palpatations, mental health, musculoskeletal)? @ -Differential Chest Pain: Stable Angina, Unstable Angina, STEMI, NSTEMI Aortic Dissection, Pneumothorax, Musculoskeletal, Esophageal Spasm GERD, Cholecystitis, Pancreatitis, Zoster, this is not meant to be an all-inclusive list. EKG interpreted by me (3pts min.). @ -As above X-rays interpreted by me (1pt min.). @ -Chest x-ray reveals no obvious acute cardiopulmonary process. CT interpreted by me (1pt min.). @ -None done U/S interpreted by me (1pt. min.). @ -None done What testing was considered but not performed or refused? (CT, X-rays, U/S, labs)? Why? @ -None What meds were considered but not given or refused? Why? @ -None Did you discuss the management of the patient with other professionals (professionals i.e. FUNMILAYO Sarmiento, VETERINARY TECHNOLOGIST, lab, RT, psych nurse, child protective services social worker, student success counselor, teacher, labor relations officer, comp field case manager)? Give summary @ -Discussed with PCP, Dr. Segura who accepted the admission. Was smoking cessation discussed for >3mins.? @ -No Was critical care preformed (if so, how long)? @ -No Were there social determinants of health that impacted care today? How? (Homelessness, low income, unemployed, alcoholism, drug addiction, transportation, low edu. Level, literacy, decrease access to med. care, [facility], rehab)? @ -No Was there de-escalation of care discussed even if they declined (Discuss DNR or withdrawal of care, Hospice)? DNR status @ -No What co-morbidities impacted this encounter? (DM, HTN, Smoking, COPD, CAD, Cancer, CVA, ARF, Chemo, Hep., AIDS, mental health diagnosis, sleep apnea, morbid obesity)? @ -None Was patient admitted / discharged? Hospital course, mention meds given and route, prescriptions, significant lab abnormalities, going to OR and other pertinent info. @ -Based on patient's presentation and physical exam, presents with left-sided chest pain. Minimal at this time. Nitro did not eliminate the pain. Patient did receive a dose of Toradol as well as morphine which did help with the pain. Patient given 324 mg of aspirin. Patient initially seen as a quick note, and workup unremarkable. This includes an undetectable troponin. However as this is the second visit this week for similar complaints I did discuss with the patient we will admit him to observation for evaluation with cardiology. Patient was in agreement this plan. EKG shows no signs of acute ischemia. Vital signs within acceptable limits. Cardiology consulted. I spoke with accepting physician, Dr. Segura who admitted the patient. Undiagnosed new problem with uncertain prognosis? @ -No Drug Therapy requiring intensive monitoring for toxicity (Heparin, Nitro, Insulin, Cardizem)? @ -No Were any procedures done? @ -No Diagnosis/symptom? @ -Chest pain Acute, or Chronic, or Acute on Chronic? @ -Acute Uncomplicated (without systemic symptoms) or Complicated (systemic symptoms)? @ -Complicated Side effects of treatment? @ -No Exacerbation, Progression, or Severe Exacerbation? @ -No Poses a threat to life or bodily function? How? (Chest pain, [place], [place], pneumonia, PE, COPD, DKA, ARF, appy, cholecystitis, CVA, Diverticulitis, Homicidal, Suicidal, threat to staff... and all critical care pts) @ -Yes (Jj Ziegler) Disposition <Angelita Alba - Last Filed: 06/20/23 20:00> Time of Disposition: 20:34 <Jj Ziegler - Last Filed: 06/20/23 21:19> Clinical Impression: Chest pain Disposition: ADMITTED IP TO THIS HOSP Condition: Stable
[2023-06-20] MEDS: ASPIRIN 81 MG PO STA (20:16)
[2023-06-20] MEDS: NITROGLYCERIN SL TABS 0.4 MG TAB SUBLINGUAL STA (20:17)
[2023-06-20] MEDS ORDERED: ONDANSETRON 4 MG/2 ML VIAL IVP PRN (20:36)
[2023-06-20] MEDS ORDERED: NALOXONE 0.4 MG/ML 1 ML VIAL IV PRN (20:36)
[2023-06-20] MEDS: KETOROLAC 15 MG/ML 1 ML VIAL IVP STA (20:58)
[2023-06-20] MEDS: MORPHINE SULFATE 4 MG/ML SYRINGE IVP STA (20:59)
[2023-06-20] MEDS: carvediloL 12.5 MG TAB PO SCH (22:15)
[2023-06-20 22:43] VITALS: TEMP 97.9
[2023-06-21] MEDS: HEPARIN SODIUM,PORCINE 5,000 UNIT/ML 1 ML VIAL SQ SCH (00:16)
--- NOTE | 2023-06-21 02:30 | XR ---
EXAMINATION TYPE: XR chest 2V DATE OF EXAM: 06/20/2023 7:33 PM CLINICAL INDICATION:Male, 47 years old with history of Chest Pain; MERGED WITH [facility] COMPARISON: 06/12/2023 and 03/27/2023 TECHNIQUE: XR chest 2V. Frontal and lateral views of the chest.. FINDINGS: Lines/Tubes/Devices: No indwelling lines are seen. Heart/mediastinum: Heart size is normal. Mediastinum appears normal. Pulmonary vascularity: Not increased, Lungs/Pleura: There is no evidence of pleural effusion, focal consolidation, or pneumothorax. Musculoskeletal: No acute osseous abnormality demonstrated in the limits of the exam. Mild degenerat dee dee change of the dorsal spine. Other findings: None. IMPRESSION: No acute cardiopulmonary abnormality.
[2023-06-21 08:41] LABS: Basophils # (A) 0.03 X 10*3/uL (0.00-0.10); Basophils % (A) 0.6 %; Eosinophils # (A) 0.27 X 10*3/uL (0.04-0.35); Eosinophils % (A) 5.5 %; HCT 34.9 % (39.6-50.0); HGB 11.3 g/dL (13.0-17.0); Lymphocytes # (A) 1.86 X 10*3/uL (0.90-5.00); Lymphocytes % (A) 37.9 %; MCHC 32.4 g/dL (32.0-37.0); MCV 83.5 FL (80.0-97.0); Mean Platelet Volume 12.6 FL (9.5-12.2); Monocytes # (A) 0.51 X 10*3/uL (0.20-1.00); Monocytes % (A) 10.4 %; NRBC Per 100 WBC 0 X 10*3/uL (0.00-0.01); Neutrophils # (A) 2.21 X 10*3/uL (1.80-7.70); Platelet Count 123 X 10*3/uL (140-440); RBC 4.18 X 10*6/uL (4.40-5.60); RDW 13.7 % (11.5-14.5); WBC 4.91 X 10*3/uL (4.50-10.00)
[2023-06-21] MEDS: LOSARTAN 50 MG TAB PO SCH (09:34)
[2023-06-21] MEDS: SPIRONOLACTONE 25 MG TAB PO SCH (09:34)
[2023-06-21 09:36] LABS: ALT 30 U/L (10-49); AST 23 U/L (14-35); Albumin/Globulin Ratio 1.67 Ratio (1.60-3.17); Alkaline Phosphatase 59 U/L (41-126); BUN/Creat Ratio 18.45 Ratio (12.00-20.00); Blood Urea Nitrogen 20.3 mg/dL (9.0-27.0); Calcium 8.7 mg/dL (8.7-10.3); Carbon Dioxide 22.5 mmol/L (21.6-31.8); Chloride 108 mmol/L (96-109); Globulin 2.4 g/dL (1.6-3.3); Glucose 118 mg/dL (70-110); Potassium 4.6 mmol/L (3.5-5.5); Sodium 141 mmol/L (135-145); Total Bilirubin 0.2 mg/dL (0.3-1.2); Total Protein 6.4 g/dL (6.2-8.2)
--- NOTE | 2023-06-21 10:36 | P.CRDCN ---
History of Present Illness History of present illness: HISTORY OF PRESENT ILLNESS: This is a 47-year-old male with a past medical history significant for nonischemic cardiomyopathy, hypertension, PVCs, and recent ablation in January 2023. Patient follows in the office with Dr. Barry. We have been asked to see the patient in consultation for Asha. Patient examined at the bedside in the emergency room. Patient states he has been having chest pain since his ablation that was performed in January 2023. Patient presented to the hospital with a chief complaint of left-sided chest pain. He states he has been having chest pain on and off all night. He states that the nitroglycerin did not relieve his pain. It is noted that the patient underwent cardiac catheterization last year revealing normal coronary arteries. Patient also underwent a stress test in the office in February 2023 which was negative for ischemia DIAGNOSTICS: - EKG reveals sinus mechanism with no signs of acute ischemia. - Chest xray negative for acute process. - Laboratory data: WBC 4.91. Hemoglobin 11.3. Platelet count 123. Sodium 141. Potassium 4.6. BUN 20. Creatinine 1.1. Troponin negative x 3. - Current home cardiac medications include carvedilol 25 mg twice a day, spironolactone 25 mg daily, losartan 100 mg daily. - Most recent echocardiogram obtained in 2023 revealing ejection fraction 45 to 50%, mild MR, mild TR -Patient underwent Lexiscan stress test in February 2023 which was negative for ischemia - Cardiac catheterization history: June 2022 revealing normal coronary arteries REVIEW OF SYSTEMS: At the time of my exam: CONSTITUTIONAL: Denies fever or chills. HEENT: Denies blurred vision, vision changes, or eye pain. Denies hemoptysis CARDIOVASCULAR: Denies chest pain. Denies orthopnea. Denies PND. Denies palpitations RESPIRATORY: Denies shortness of breath. GASTROINTESTINAL: Denies abdominal pain. Denies nausea or vomiting. HEMATOLOGIC: Denies bleeding disorders. GENITOURINARY: Denies any blood in urine. SKIN: Denies pruitis. Denies rash. PHYSICAL EXAM: VITAL SIGNS: Reviewed. GENERAL: Well-developed in no acute distress. HEENT: Head is normocephalic. Pupils are equal, round. Sclerae anicteric. Mucous membranes of the mouth are moist. Neck supple. No JVD or thyromegaly LUNGS: Respirations even and unlabored. Lungs essentially clear to auscultation bilaterally. HEART: Regular rate and rhythm. S1 and S2 heard. ABDOMEN: Soft. Nondistended. Nontender. EXTREMITIES: Normal range of motion. No clubbing or cyanosis. Peripheral pulses intact. No lower extremity edema NEUROLOGIC: Awake and alert. Oriented x 3. ASSESSMENT: Chronic chest pain, troponin negative x 3 Status post ablation of RVOT PVCs, January 2023 Normal coronary arteries, per cardiac catheterization in June 2022 Hypertension Nonischemic cardiomyopathy Morbid obesity: BMI 44.4 PLAN: An acute coronary event has been ruled out It is noted that the patient underwent cardiac catheterization last year revealing normal coronary arteries. Patient also underwent a stress test in the office in February 2023 which was negative for ischemia Resume home cardiac medications Check D-dimer If D-dimer is normal, there is no further inpatient recommendations from a cardiac standpoint and the patient may be discharged home from a cardiology perspective Nurse practitioner note has been reviewed by physician. Signing provider agrees with the documented findings, assessment, and plan of care documented by MINING MACHINERY ASSEMBLER as a scribe. Past Medical History Past Medical History: GERD/Reflux, Hypertension Additional Past Medical History / Comment(s): Hematuria, lower back pain, anxiety, bigeminy rhythm on 07/13/22, cardiac ablation 2022. History of Any Multi-Drug Resistant Organisms: None Reported Additional Past Surgical History / Comment(s): tooth extraction, Heart catheterization (june 2022) Past Anesthesia/Blood Transfusion Reactions: No Reported Reaction Past Psychological History: Anxiety Smoking Status: Former smoker Past Alcohol Use History: None Reported Past Drug Use History: None Reported - Past Family History Mother Family Medical History: Coronary Artery Disease (CAD), Diabetes Mellitus, Renal Disease Additional Family Medical History / Comment(s): CABG Father Family Medical History: Coronary Artery Disease (CAD) Additional Family Medical History / Comment(s): CABG Medications and Allergies Home Medications Medication Instructions Recorded Confirmed Type Naproxen [Naprosyn] 500 mg PO BID 07/13/22 06/20/23 History Omeprazole [PriLOSEC] 20 mg PO BID 07/13/22 06/20/23 History Ergocalciferol [Vitamin D2 (1250 1,250 mcg PO QMONTHLY 02/15/23 06/20/23 History Mcg = 82020 Iu)] Spironolactone [Aldactone] 25 mg PO DAILY 02/15/23 06/20/23 History Losartan Potassium [Cozaar] 100 mg PO DAILY 03/27/23 06/20/23 History carvediloL [Coreg] 25 mg PO BID 03/27/23 06/20/23 History Allergies Allergy/AdvReac Type Severity Reaction Status Date / Time blueberry Allergy Anaphylaxis Verified 06/20/23 20:38 grapefruit Allergy Anaphylaxis Verified 06/20/23 20:38 Physical Exam Vitals: Vital Signs Temp Pulse Resp BP Pulse Ox 06/21/23 07:20 53 L 14 127/74 06/21/23 03:44 59 L 18 108/60 97 06/21/23 01:34 62 15 96 06/21/23 00:10 60 17 126/63 95 06/20/23 22:00 97.9 F 72 18 134/85 97 06/20/23 21:30 69 18 115/94 96 06/20/23 20:42 77 20 128/85 96 06/20/23 20:21 90 18 121/67 95 06/20/23 20:18 83 16 125/88 98 06/20/23 19:10 97.8 F 65 18 152/89 98 Intake and Output 06/20/23 06/21/23 06/21/23 22:59 06:59 14:59 Other: Weight 165.561 kg Results 06/21/23 04:27 06/21/23 04:27 Cardiac Enzymes 06/20/23 06/20/23 06/20/23 Range/Units 19:12 19:12 23:42 AST 29 (17-59) U/L Troponin I <0.012 <0.012 (0.000-0.034) ng/mL 06/21/23 06/21/23 Range/Units 04:27 04:27 AST 23 (17-59) U/L Troponin I <0.012 (0.000-0.034) ng/mL Coagulation 06/20/23 Range/Units 19:12 PT 10.4 (10.0-12.5) sec APTT 23.5 (22.0-30.0) sec CBC 06/20/23 06/21/23 Range/Units 19:12 04:27 WBC 6.4 4.91 (3.8-10.6) k/uL RBC 4.63 4.18 L (4.30-5.90) m/uL Hgb 12.9 L 11.3 L (13.0-17.5) gm/dL Hct 39.0 34.9 L (39.0-53.0) % Plt Count 127 L 123 L (150-450) k/uL Comprehensive Metabolic Panel 06/20/23 06/21/23 Range/Units 19:12 04:27 Sodium 141 141 (137-145) mmol/L Potassium 4.7 4.6 (3.5-5.1) mmol/L Chloride 110 H 108 (98-107) mmol/L Carbon Dioxide 24 22.5 (22-30) mmol/L BUN 21 H 20.3 (9-20) mg/dL Creatinine 1.02 1.1 (0.66-1.25) mg/dL Glucose 139 H 118 H (74-99) mg/dL Calcium 9.0 8.7 (8.4-10.2) mg/dL AST 29 23 (17-59) U/L ALT 36 30 (4-49) U/L Alkaline Phosphatase 67 59 (38-126) U/L Total Protein 7.3 6.4 (6.3-8.2) g/dL Albumin 4.2 4.0 (3.5-5.0) g/dL Current Medications Generic Name Dose Route Start Last Admin Trade Name Freq PRN Reason Stop Dose Admin Carvedilol 25 mg 06/20/23 21:30 06/21/23 07:41 Carvedilol 12.5 Mg Tab PO 25 mg BID-W/MEALS DEJAH Administration Heparin Sodium (Porcine) 5,000 unit 06/21/23 00:00 06/21/23 07:41 Heparin Sodium,Porcine 5,000 Unit/Ml 1 Ml Vial SQ 5,000 unit Q8HR DEJAH Administration Losartan Potassium 100 mg 06/21/23 09:00 06/21/23 09:34 Losartan 50 Mg Tab PO 100 mg DAILY DEJAH Administration Naloxone HCl 0.2 mg 06/20/23 20:36 Naloxone 0.4 Mg/Ml 1 Ml Vial IV Q2M PRN Opioid Reversal Ondansetron HCl 4 mg 06/20/23 20:36 Ondansetron 4 Mg/2 Ml Vial IVP Q8HR PRN Nausea And Vomiting Spironolactone 25 mg 06/21/23 09:00 06/21/23 09:34 Spironolactone 25 Mg Tab PO 25 mg DAILY DEJAH Administration Intake and Output 06/20/23 06/21/23 06/21/23 22:59 06:59 14:59 Other: Weight 165.561 kg 06/21/23 04:27 06/21/23 04:27
[2023-06-21 11:13] VITALS: BP 106/77; PULSE 63; RESP 20
--- NOTE | 2023-06-22 02:54 | HP ---
HISTORY AND PHYSICAL CHIEF COMPLAINT: Chest pain. HISTORY OF PRESENT ILLNESS: This is another admission for this 47-year-old white male, who has been having issues with hypertension and chest pain on and off for the last several years. He has had episodes of sinus tachycardia and frequent PVCs. He is being followed and treated by Cardiology. He came in because he felt a pressure-like discomfort on the anterior chest and was slightly short of breath and slightly diaphoretic. Workup in the emergency room was negative. REVIEW OF SYSTEMS: He has had no fever, chills, cough, hemoptysis, sputum production, chest wall tenderness, abdominal pain, nausea, vomiting, indigestion, etc. Past medical history, family history, and personal and social histories are all otherwise unremarkable. PHYSICAL EXAMINATION: VITAL SIGNS: Normal. There are no extra beats. HEAD, EARS, EYES, NOSE, MOUTH AND THROAT: Normal. CHEST: Clear. CARDIAC: Normal. No murmurs or extra sounds. ABDOMEN: Soft and protuberant. EXTREMITIES: Normal. NEUROLOGICAL: He is intact. ASSESSMENT: He is admitted to the hospital with diagnoses of: 1. Chest pain. 2. History of cardiac arrhythmias and PVCs. PLAN: 1. Bedrest. 2. IV fluids. 3. Serial EKGs and enzymes. 4. Cardiology consult. MMODL / IJN: [id number] /
--- NOTE | 2023-06-22 03:34 | DS ---
DISCHARGE SUMMARY CHIEF COMPLAINT: Chest pain. HISTORY OF PRESENT ILLNESS: This is another admission for this 47-year-old white male who has been having problems with chest pain on and off for the last 2 to 3 years. The. He has also had episodes of tachycardia and frequent PVCs. He developed anterior chest pain, which he described as being a pressure on his chest associated with some shortness of breath and diaphoresis. He came to the emergency room, where he was admitted for observation. EKG and troponins were normal. He was seen by Cardiology. It was felt he could be released and he will go home on his regular medications and will follow up in the office in several days. FINAL DIAGNOSES: 1. Anterior chest pain. 2. History of cardiac arrhythmia with PVCs. 3. History of hypertension. OPERATIONS: None. CONSULTATIONS: Cardiology. He is improved. MMODL / TAYN: [id number] /
== END 2023-06-21 18:04 | disposition home or self-care (01) ==
LOC: EC 19:08 → 6NMEDSUR 20:37
PROVIDERS: ADMIT Family Medicine; ATTEND Family Medicine
DX: R07.89 Other chest pain (principal); G89.29 Other chronic pain; M79.602 Pain in left arm; I10 Essential (primary) hypertension; I49.3 Ventricular premature depolarization; I42.8 Other cardiomyopathies; R61 Generalized hyperhidrosis; K21.9 Gastro-esophageal reflux disease without esophagitis; E66.01 Morbid (severe) obesity due to excess calories; Z68.41 Body mass index [BMI] 40.0-44.9, adult; Z79.1 Long term (current) use of non-steroidal anti-inflammatories (NSAID); Z79.899 Other long term (current) drug therapy; Z91.018 Allergy to other foods; Z87.891 Personal history of nicotine dependence
CPT/HCPCS: 96372; 96374; 96375; 99285; 36415; 93005; 85379; 80053 ×2; 83735; 84484 ×2; 85025 ×2; 85610; 85730; 71046; G0378 ×2; J2270; J1644; J1885

== ENCOUNTER 2023-06-24 21:17 | Emergency (ER) | payer OTHER ==
--- NOTE | 2023-06-24 21:36 | ED ---
Chest Pain HPI - General Source: EMS Mode of arrival: EMS Limitations: no limitations <Roddy Leon - Last Filed: 06/24/23 21:38> <Selene Painting - Last Filed: 06/28/23 23:15> - General Chief Complaint: Chest Pain Stated Complaint: Chest Pain Time Seen by Provider: 06/24/23 21:30 - History of Present Illness Initial Comments: 47-year-old male presents to the ED with a chief complaint of chest pain. Patient reports that this has been an intermittent issue and he was recently discharged from this facility on 06/21/23. States has had intermittent pain since that. Today notes episode of chest pain on the left side of his chest seeming to radiate to his left arm with some diaphoresis. Follows with Dr. Barry. (Roddy Leon) 47-year-old male presents to the ED with complaints of chest pain. Patient states that he has had constant chest pain. He has had multiple previous hospi talizations for this complaint with evaluation by cardiology. Patient was just recently discharged on the . The pain is located on the left side of his chest with radiation into his left arm. His pump operator byproducts is Dr. Ayers. He denies any associated shortness of breath. No fevers, chills or cough. No other alleviating, precipitating or modifying factors (Selene Painting) - Related Data Home Medications Medication Instructions Recorded Confirmed Naproxen [Naprosyn] 500 mg PO BID 07/13/22 06/28/23 Omeprazole [PriLOSEC] 20 mg PO BID 07/13/22 06/28/23 Ergocalciferol [Vitamin D2 (1250 1,250 mcg PO QMONTHLY 02/15/23 06/28/23 Mcg = 62442 Iu)] Spironolactone [Aldactone] 25 mg PO DAILY 02/15/23 06/28/23 Losartan Potassium [Cozaar] 100 mg PO DAILY 03/27/23 06/28/23 carvediloL [Coreg] 25 mg PO BID 03/27/23 06/28/23 Allergies Allergy/AdvReac Type Severity Reaction Status Date / Time blueberry Allergy Anaphylaxis Verified 06/28/23 14:10 grapefruit Allergy Anaphylaxis Verified 06/28/23 14:10 Review of Systems ROS Other: All systems not noted in ROS Statement are negative. <Roddy Leon - Last Filed: 06/24/23 21:38> ROS Other: All systems not noted in ROS Statement are negative. <Selene Painting Marcia - Last Filed: 06/28/23 23:15> ROS Statement: Those systems with pertinent positive or pertinent negative responses have been documented in the HPI. Past Medical History Past Medical History: GERD/Reflux, Hypertension Additional Past Medical History / Comment(s): Hematuria, lower back pain, anxi ety, bigeminy rhythm on 07/13/22, cardiac ablation 2022. History of Any Multi-Drug Resistant Organisms: None Reported Additional Past Surgical History / Comment(s): tooth extraction, Heart catheterization (june 2022) Past Anesthesia/Blood Transfusion Reactions: No Reported Reaction Past Psychological History: Anxiety Smoking Status: Former smoker Past Alcohol Use History: None Reported Past Drug Use History: None Reported - Past Family History Mother Family Medical History: Coronary Artery Disease (CAD), Diabetes Mellitus, Renal Disease Additional Family Medical History / Comment(s): CABG Father Family Medical History: Coronary Artery Disease (CAD) Additional Family Medical History / Comment(s): CABG <Roddy Leon - Last Filed: 06/24/23 21:38> General Exam Limitations: no limitations <Roddy Leon - Last Filed: 06/24/23 21:38> General appearance: alert, in no apparent distress Head exam: Present: atraumatic, normocephalic, normal inspection Eye exam: Present: normal appearance, PERRL, EOMI. Absent: scleral icterus, conjunctival injection, periorbital swelling ENT exam: Present: normal exam, mucous membranes moist Neck exam: Present: normal inspection. Absent: tenderness, meningismus, lymphadenopathy Respiratory exam: Present: normal lung sounds bilaterally. Absent: respiratory distress, wheezes, rales, rhonchi, stridor Cardiovascular Exam: Present: regular rate, normal rhythm, normal heart sounds. Absent: systolic murmur, diastolic murmur, rubs, gallop, clicks GI/Abdominal exam: Present: soft, normal bowel sounds. Absent: distended, tenderness, guarding, rebound, rigid Extremities exam: Present: normal inspection, full ROM, normal capillary refill. Absent: tenderness, pedal edema, joint swelling, calf tenderness Back exam: Present: normal inspection Neurological exam: Present: alert, oriented X3, CN II-XII intact Psychiatric exam: Present: normal affect, normal mood Skin exam: Present: warm, dry, intact, normal color. Absent: rash <Selene Painting - Last Filed: 06/28/23 23:15> - General Exam Comments Initial Comments: Visual Physical Exam Vital signs reviewed General: Well-appearing, nontoxic, no acute distress. Head: Normocephalic, atraumatic Eyes: PERRLA, EOMI ENT: Airway patent Chest: Nonlabored breathing Skin: No visual rash, normal skin tone Neuro: Alert and oriented 3 Musculoskeletal: No gross abnormalities (Roddy Leon) Course Vital Signs 06/24/23 06/25/23 06/25/23 21:30 02:00 02:59 Temperature 98.2 F Pulse Rate 103 H 80 90 Respiratory 20 16 18 Rate Blood Pressure 146/108 122/90 105/89 O2 Sat by Pulse 96 96 96 Oximetry Chest Pain MDM <Roddy Leon - Last Filed: 06/24/23 21:38> <Selene Painting - Last Filed: 06/28/23 23:15> - MDM Quicknote portion performed. Signed Roddy Leon PA-C (Roddy Leon) Was pt. sent in by a medical professional or institution ([facility], MAIL CALLER, urgent care, hospital, or senior care...) When possible be specific @ -No Did you speak to anyone other than the patient for history (EMS, parent, family, police, friend...)? What history was obtained from this source @ -EMS Did you review nursing and triage notes (agree or disagree)? Why? @ -I reviewed and agree with nursing and triage notes Were old charts reviewed (outside hosp., previous admission, EMS record, old EKG, old radiological studies, urgent care reports/EKG's, senior care records)? Report findings @ -I reviewed patient's discharge summary from the Differential Diagnosis (chest pain, altered mental status, abdominal pain women, abdominal pain men, vaginal bleeding, weakness, fever, dyspnea, syncope, headache, dizziness, GI bleed, back pain, seizure, CVA, palpatations, mental health, musculoskeletal)? @ -Differential Chest Pain: Stable Angina, Unstable Angina, STEMI, NSTEMI Aortic Dissection, Pneumothorax, Musculoskeletal, Esophageal Spasm GERD, Cholecystitis, Pancreatitis, Zoster, this is not meant to be an all-inclusive list. EKG interpreted by me (3pts min.). @ -Yes and demonstrates sinus rhythm with a rate of 98. AR interval 157. QRS 89. QTc of 365. No acute ST segment elevations or depressions X-rays interpreted by me (1pt min.). @ -Yes and demonstrates no acute process CT interpreted by me (1pt min.). @ -None done U/S interpreted by me (1pt. min.). @ -None done What testing was considered but not performed or refused? (CT, X-rays, U/S, labs)? Why? @ -None What meds were considered but not given or refused? Why? @ -None Did you discuss the management of the patient with other professionals (professionals i.e. , PA, MAIL CALLER, lab, RT, psych nurse, social science analyst, workforce staffing advisor, teacher, house officer, case preparer and liner)? Give summary @ -No Was smoking cessation discussed for >3mins.? @ -No Was critical care preformed (if so, how long)? @ -No Were there social determinants of health that impacted care today? How? (Homelessness, low income, unemployed, alcoholism, drug addiction, transportation, low edu. Level, literacy, decrease access to med. care, custodial, rehab)? @ -No Was there de-escalation of care discussed even if they declined (Discuss DNR or withdrawal of care, Hospice)? DNR status @ -No What co-morbidities impacted this encounter? (DM, HTN, Smoking, COPD, CAD, Cancer, CVA, ARF, Chemo, Hep., AIDS, mental health diagnosis, sleep apnea, morbid obesity)? @ -Hypertension, GERD Was patient admitted / discharged? Hospital course, mention meds given and route, prescriptions, significant lab abnormalities, going to OR and other pertinent info. @ -Upon arrival patient was seen and evaluated in room 10. Thorough history and physical exam was performed. IV access was established. Laboratory studies are conducted. I did review the patient's recent discharge summary. Patient does have 2 negative troponins. He will be discharged home at this time and instructed to follow-up with his primary care doctor and pump operator byproducts in the outpatient setting for further management of his symptoms. Undiagnosed new problem with uncertain prognosis? @ -Yes Drug Therapy requiring intensive monitoring for toxicity (Heparin, Nitro, Insulin, Cardizem)? @ -No Were any procedures done? @ -No Diagnosis/symptom? @ -Acute, recurrent chest pain Acute, or Chronic, or Acute on Chronic? @ -Acute on chronic Uncomplicated (without systemic symptoms) or Complicated (systemic symptoms)? @ -Complicated Side effects of treatment? @ -No Exacerbation, Progression, or Severe Exacerbation? @ -No Poses a threat to life or bodily function? How? (Chest pain, [place], [place], pneumonia, PE, COPD, DKA, ARF, appy, cholecystitis, CVA, Diverticulitis, Homicidal, Suicidal, threat to staff... and all critical care pts) @ -No (Selene Painting) Disposition <Roddy Leon - Last Filed: 06/24/23 21:38> Is patient prescribed a controlled substance at d/c from ED?: No Time of Disposition: 02:48 <Selene Painting - Last Filed: 06/28/23 23:15> Clinical Impression: Chest pain Disposition: HOME SELF-CARE Condition: Stable Instructions (If sedation given, give patient instructions): Chest Pain (ED) Additional Instructions: Please follow-up with your pump operator byproducts for workup of your chest pain as all of the emergent medical conditions have been ruled out Referrals: Rj Segura MD [Primary Care Provider] - 1-2 days [facility] [Provider Group] - 1-2 days
[2023-06-24 21:39] VITALS: TEMP 98.2
[2023-06-24 21:57] LABS: Basophils # (A) 0.1 k/uL (0-0.2); Basophils % (A) 1 %; Eosinophils # (A) 0.3 k/uL (0-0.7); Eosinophils % (A) 4 %; HCT 41.9 % (39.0-53.0); HGB 13.6 gm/dL (13.0-17.5); Lymphocytes # (A) 2.6 k/uL (1.0-4.8); Lymphocytes % (A) 34 %; MCH 27.2 pg (25.0-35.0); MCHC 32.5 g/dL (31.0-37.0); MCV 83.7 fL (80.0-100.0); Mean Platelet Volume 11.3; Monocytes # (A) 0.5 k/uL (0-1.0); Monocytes % (A) 7 %; Neutrophils % (A) 52 %; Platelet Count 150 k/uL (150-450); RDW 13.4 % (11.5-15.5); WBC 7.6 k/uL (3.8-10.6)
[2023-06-24 22:03] LABS: ALT 30 U/L (4-49); AST 24 U/L (17-59); African American GFR (CKD) 58 (>60 ml/min/1.73 sqM); Albumin 4.4 g/dL (3.5-5.0); Alkaline Phosphatase 68 U/L (38-126); Anion Gap 9 mmol/L; Blood Urea Nitrogen 28 mg/dL (9-20); Calcium 9.4 mg/dL (8.4-10.2); Carbon Dioxide 20 mmol/L (22-30); Chloride 110 mmol/L (98-107); Glucose 123 mg/dL (74-99); Magnesium 1.8 mg/dL (1.6-2.3); Non-African American GFR(CKD) 50 (>60 ml/min/1.73 sqM); Potassium 4.7 mmol/L (3.5-5.1); Sodium 139 mmol/L (137-145); Total Bilirubin 0.4 mg/dL (0.2-1.3); Total Protein 7.7 g/dL (6.3-8.2)
[2023-06-24 22:26] LABS: INR 0.9 (<1.2); Partial Thromboplastin Time 24.2 sec (22.0-30.0); Prothrombin Time 10.1 sec (10.0-12.5)
[2023-06-24 22:40] LABS: Appearance,Urine Clear (Clear); Bilirubin,Urine Negative (Negative); Blood,Urine Negative (Negative); Color,Urine Colorless; Glucose,Urine (UA) Negative (Negative); Ketones,Urine Negative (Negative); Leukocyte Esterase,Urine Negative (Negative); Nitrite,Urine Negative (Negative); PH, Urine 5.5 (5.0-8.0); Protein,Urine Negative (Negative); Specific Gravity,Urine 1.024 (1.001-1.035); Urobilinogen,Urine <2.0 mg/dL (<2.0)
--- NOTE | 2023-06-24 22:53 | XR ---
EXAM: XR Chest, 2 Views CLINICAL HISTORY: ITS.REASON XR Reason: Chest Pain TECHNIQUE: Frontal and lateral views of the chest. COMPARISON: 06/20/2023 FINDINGS: Lungs: Unremarkable. No consolidation. Pleural space: Unremarkable. No pneumothorax. Heart: Unremarkable. No cardiomegaly. Mediastinum: Unremarkable. Normal mediastinal contour. Bones/joints: Unremarkable. No acute fracture. IMPRESSION: Normal chest x-rays.
[2023-06-25 01:42] LABS: Large Platelets Present
[2023-06-25 03:03] VITALS: BP 105/89; PULSE 90; RESP 18
== END 2023-06-25 02:59 | disposition home or self-care (01) ==
LOC: EC 21:17
DX: R07.89 Other chest pain (principal); I10 Essential (primary) hypertension; Z87.891 Personal history of nicotine dependence; Z88.8 Allergy status to other drugs, medicaments and biological substances
CPT/HCPCS: 36415; 71046; 80053; 81003; 83735; 84484; 85025; 85610; 85730; 93005; 99285

== ENCOUNTER 2023-06-28 12:25 | Observation (INO) | payer OTHER ==
--- NOTE | 2023-06-28 12:47 | ED ---
General Adult HPI - General Chief complaint: Chest Pain Stated complaint: Chest pain Time Seen by Provider: 06/28/23 12:31 Source: patient, EMS, RN notes reviewed Mode of arrival: EMS Limitations: no limitations - History of Present Illness Initial comments: Patient is a 47-year-old male presenting to the emergency department with concerns for chest discomfort. Patient had 2 episodes today. Each episode lasted last than 1 hour. Discomfort was sharp. Patient has been having symptoms similar to this daily for the past 4 months since he had an ablation. Patient did have a little bit of associated dyspnea. No nausea or diaphoresis. Patient does have a small headache and does occasionally get headaches. - Related Data Home Medications Medication Instructions Recorded Confirmed Naproxen [Naprosyn] 500 mg PO BID 07/13/22 06/20/23 Omeprazole [PriLOSEC] 20 mg PO BID 07/13/22 06/20/23 Ergocalciferol [Vitamin D2 (1250 1,250 mcg PO QMONTHLY 02/15/23 06/20/23 Mcg = 44221 Iu)] Spironolactone [Aldactone] 25 mg PO DAILY 02/15/23 06/20/23 Losartan Potassium [Cozaar] 100 mg PO DAILY 03/27/23 06/20/23 carvediloL [Coreg] 25 mg PO BID 03/27/23 06/20/23 Allergies Allergy/AdvReac Type Severity Reaction Status Date / Time blueberry Allergy Anaphylaxis Verified 06/28/23 12:37 grapefruit Allergy Anaphylaxis Verified 06/28/23 12:37 Review of Systems ROS Statement: Those systems with pertinent positive or pertinent negative responses have been documented in the HPI. ROS Other: All systems not noted in ROS Statement are negative. Constitutional: Denies: fever Eyes: Denies: eye pain ENT: Denies: ear pain Respiratory: Denies: cough Cardiovascular: Reports: as per HPI, chest pain Neurological: Reports: as per HPI, headache. Denies: weakness, confusion Past Medical History Past Medical History: GERD/Reflux, Hypertension Additional Past Medical History / Comment(s): Hematuria, lower back pain, anxiety, bigeminy rhythm on 07/13/22, cardiac ablation 2022. History of Any Multi-Drug Resistant Organisms: None Reported Additional Past Surgical History / Comment(s): tooth extraction, Heart catheterization (june 2022) Past Anesthesia/Blood Transfusion Reactions: No Reported Reaction Past Psychological History: Anxiety Smoking Status: Former smoker Past Alcohol Use History: None Reported Past Drug Use History: None Reported - Past Family History Mother Family Medical History: Coronary Artery Disease (CAD), Diabetes Mellitus, Renal Disease Additional Family Medical History / Comment(s): CABG Father Family Medical History: Coronary Artery Disease (CAD) Additional Family Medical History / Comment(s): CABG General Exam Limitations: no limitations General appearance: alert, in no apparent distress Head exam: Present: normocephalic Eye exam: Present: normal appearance, PERRL, EOMI ENT exam: Present: normal oropharynx Neck exam: Present: normal inspection Respiratory exam: Present: normal lung sounds bilaterally. Absent: chest wall tenderness Cardiovascular Exam: Present: regular rate, normal rhythm, normal heart sounds Expanded Peripheral pulses: 2+: Radial (R), Radial (L), Posterior Tibialis (R), Posterior Tibialis (L) GI/Abdominal exam: Present: soft. Absent: tenderness Extremities exam: Present: normal inspection. Absent: pedal edema, calf tenderness Neurological exam: Present: alert Psychiatric exam: Present: normal affect, normal mood Skin exam: Present: normal color Course Vital Signs 06/28/23 06/28/23 06/28/23 12:29 12:37 13:25 Temperature 98.2 F Pulse Rate 79 84 Pulse Rate [ 68 Optics Technical Officer ] Respiratory 20 16 20 Rate Blood Pressure 104/79 113/80 O2 Sat by Pulse 98 97 Oximetry EKG Findings - EKG Results: EKG: interpreted by ERMD (Flattened T waves), sinus rhythm, normal axis, normal QRS Medical Decision Making - Medical Decision Making Was pt. sent in by a medical professional or institution (, PA, STAFF PSYCHIATRIST, urgent care, hospital, or [facility]...) When possible be specific @ -No Did you speak to anyone other than the patient for history (EMS, parent, family, police, friend...)? What history was obtained from this source @ -No Did you review nursing and triage notes (agree or disagree)? Why? @ -I reviewed and agree with nursing and triage notes Were old charts reviewed (outside hosp., previous admission, EMS record, old EKG, old radiological studies, urgent care reports/EKG's, [facility] records)? Report findings @ -Multiple previous records reviewed including cardiology notes and patient's EP study Differential Diagnosis (chest pain, altered mental status, abdominal pain women, abdominal pain men, vaginal bleeding, weakness, fever, dyspnea, syncope, headache, dizziness, GI bleed, back pain, seizure, CVA, palpatations, mental health, musculoskeletal)? @ -Differential Chest Pain: Stable Angina, Unstable Angina, STEMI, NSTEMI Aortic Dissection, Pneumothorax, Musculoskeletal, Esophageal Spasm GERD, Cholecystitis, Pancreatitis, Zoster, this is not meant to be an all-inclusive list. EKG interpreted by me (3pts min.). @ -As above X-rays interpreted by me (1pt min.). @ -X-ray shows no acute process CT interpreted by me (1pt min.). @ -None done U/S interpreted by me (1pt. min.). @ -None done What testing was considered but not performed or refused? (CT, X-rays, U/S, labs)? Why? @ -None What meds were considered but not given or refused? Why? @ -None Did you discuss the management of the patient with other professionals (professionals i.e. , PA, STAFF PSYCHIATRIST, lab, RT, psych nurse, health care social worker, commonwealth attorney, teacher, chief clinical officer, case finisher)? Give summary @ -Case was discussed with Dr. Segura who is familiar with this patient and would like to be admitted. Was smoking cessation discussed for >3mins.? @ -No Was critical care preformed (if so, how long)? @ -No Were there social determinants of health that impacted care today? How? (Homelessness, low income, unemployed, alcoholism, drug addiction, transport ation, low edu. Level, literacy, decrease access to med. care, care home, rehab)? @ -No Was there de-escalation of care discussed even if they declined (Discuss DNR or withdrawal of care, Hospice)? DNR status @ -No What co-morbidities impacted this encounter? (DM, HTN, Smoking, COPD, CAD, Cancer, CVA, ARF, Chemo, Hep., AIDS, mental health diagnosis, sleep apnea, morbid obesity)? @ -None Was patient admitted / discharged? Hospital course, mention meds given and route, prescriptions, significant lab abnormalities, going to OR and other pertinent info. @ -Patient presents again with chest pain. Patient has been having recurrent chest pain. Case was discussed with Dr. Segura who would like this to be further evaluated and would like the patient to be admitted. Admission orders written. Undiagnosed new problem with uncertain prognosis? @ -No Drug Therapy requiring intensive monitoring for toxicity (Heparin, Nitro, Insulin, Cardizem)? @ -No Were any procedures done? @ -No Diagnosis/symptom? @ -Chest pain Acute, or Chronic, or Acute on Chronic? @ -Acute Uncomplicated (without systemic symptoms) or Complicated (systemic symptoms)? @ -Default Side effects of treatment? @ -No Exacerbation, Progression, or Severe Exacerbation? @ -No Poses a threat to life or bodily function? How? (Chest pain, [place], [place], pneumonia, PE, COPD, DKA, ARF, appy, cholecystitis, CVA, Diverticulitis, Homicidal, Suicidal, threat to staff... and all critical care pts) @ -No - Lab Data Result diagrams: 06/28/23 12:47 06/28/23 12:47 Lab Results 06/28/23 06/28/23 06/28/23 Range/Units 12:47 12:47 12:47 WBC 4.2 (3.8-10.6) k/uL RBC 4.67 (4.30-5.90) m/uL Hgb 13.2 (13.0-17.5) gm/dL Hct 38.5 L (39.0-53.0) % MCV 82.4 (80.0-100.0) fL MCH 28.3 (25.0-35.0) pg MCHC 34.4 (31.0-37.0) g/dL RDW 13.4 (11.5-15.5) % MPV 10.8 PT 10.1 (10.0-12.5) sec INR 0.9 (<1.2) APTT 24.0 (22.0-30.0) sec D-Dimer 0.36 (<0.60) mg/L FEU Sodium 138 (137-145) mmol/L Potassium 4.5 (3.5-5.1) mmol/L Chloride 109 H (98-107) mmol/L Carbon Dioxide 20 L (22-30) mmol/L Anion Gap 9 mmol/L BUN 21 H (9-20) mg/dL Creatinine 0.84 (0.66-1.25) mg/dL Est GFR (CKD-EPI)AfAm >90 (>60 ml/min/1.73 sqM) Est GFR (CKD-EPI)NonAf >90 (>60 ml/min/1.73 sqM) Glucose 123 H (74-99) mg/dL Calcium 9.1 (8.4-10.2) mg/dL Magnesium 1.7 (1.6-2.3) mg/dL Total Bilirubin 0.5 (0.2-1.3) mg/dL AST 29 (17-59) U/L ALT 29 (4-49) U/L Alkaline Phosphatase 70 (38-126) U/L Troponin I (0.000-0.034) ng/mL Total Protein 7.1 (6.3-8.2) g/dL Albumin 4.0 (3.5-5.0) g/dL Lipase 71 (23-300) U/L 06/28/23 Range/Units 12:47 WBC (3.8-10.6) k/uL RBC (4.30-5.90) m/uL Hgb (13.0-17.5) gm/dL Hct (39.0-53.0) % MCV (80.0-100.0) fL MCH (25.0-35.0) pg MCHC (31.0-37.0) g/dL RDW (11.5-15.5) % MPV PT (10.0-12.5) sec INR (<1.2) APTT (22.0-30.0) sec D-Dimer (<0.60) mg/L FEU Sodium (137-145) mmol/L Potassium (3.5-5.1) mmol/L Chloride (98-107) mmol/L Carbon Dioxide (22-30) mmol/L Anion Gap mmol/L BUN (9-20) mg/dL Creatinine (0.66-1.25) mg/dL Est GFR (CKD-EPI)AfAm (>60 ml/min/1.73 sqM) Est GFR (CKD-EPI)NonAf (>60 ml/min/1.73 sqM) Glucose (74-99) mg/dL Calcium (8.4-10.2) mg/dL Magnesium (1.6-2.3) mg/dL Total Bilirubin (0.2-1.3) mg/dL AST (17-59) U/L ALT (4-49) U/L Alkaline Phosphatase (38-126) U/L Troponin I <0.012 (0.000-0.034) ng/mL Total Protein (6.3-8.2) g/dL Albumin (3.5-5.0) g/dL Lipase (23-300) U/L Disposition Clinical Impression: Chest pain Disposition: ADMITTED IP TO THIS HOSP Is patient prescribed a controlled substance at d/c from ED?: No Referrals: Rj Segura MD [Primary Care Provider] - 1-2 days Time of Disposition: 13:54
[2023-06-28 13:01] LABS: Basophils % (A) 1 %; Eosinophils # (A) 0.2 k/uL (0-0.7); Eosinophils % (A) 5 %; HCT 38.5 % (39.0-53.0); HGB 13.2 gm/dL (13.0-17.5); Lymphocytes # (A) 1.3 k/uL (1.0-4.8); Lymphocytes % (A) 31 %; MCH 28.3 pg (25.0-35.0); MCHC 34.4 g/dL (31.0-37.0); MCV 82.4 fL (80.0-100.0); Mean Platelet Volume 10.8; Monocytes # (A) 0.3 k/uL (0-1.0); Monocytes % (A) 6 %; Neutrophils # (A) 2.3 k/uL (1.3-7.7); Neutrophils % (A) 55 %; Platelet Count 144 k/uL (150-450); RBC 4.67 m/uL (4.30-5.90); RDW 13.4 % (11.5-15.5); WBC 4.2 k/uL (3.8-10.6)
[2023-06-28 13:08] LABS: INR 0.9 (<1.2); Prothrombin Time 10.1 sec (10.0-12.5)
[2023-06-28 13:10] LABS: ALT 29 U/L (4-49); AST 29 U/L (17-59); African American GFR (CKD) >90 (>60 ml/min/1.73 sqM); Alkaline Phosphatase 70 U/L (38-126); Anion Gap 9 mmol/L; Blood Urea Nitrogen 21 mg/dL (9-20); Calcium 9.1 mg/dL (8.4-10.2); Carbon Dioxide 20 mmol/L (22-30); Chloride 109 mmol/L (98-107); Glucose 123 mg/dL (74-99); Lipase 71 U/L (23-300); Magnesium 1.7 mg/dL (1.6-2.3); Non-African American GFR(CKD) >90 (>60 ml/min/1.73 sqM); Potassium 4.5 mmol/L (3.5-5.1); Sodium 138 mmol/L (137-145); Total Bilirubin 0.5 mg/dL (0.2-1.3); Total Protein 7.1 g/dL (6.3-8.2)
--- NOTE | 2023-06-28 13:11 | XR ---
EXAMINATION TYPE: XR chest 2V DATE OF EXAM: 06/28/2023 COMPARISON: 06/24/2023 TECHNIQUE: PA and lateral views submitted. HISTORY: Dizziness FINDINGS: Limited inspiration. The lungs are clear and there is no pneumothorax, pleural effusion, or focal pn eumonia. Heart is mildly prominent but no overt failure. Osseous structures demonstrate hypertrophic and degenerative changes of the spine. IMPRESSION: 1. No acute process.
[2023-06-28] MEDS: ASPIRIN 81 MG PO STA (13:19)
[2023-06-28] MEDS: ACETAMINOPHEN TAB 500 MG TAB PO STA (13:19)
[2023-06-28] MEDS ORDERED: NITROGLYCERIN SL TABS 0.4 MG TAB SUBLINGUAL PRN (13:54)
[2023-06-28] MEDS: NITROGLYCERIN OINT 1 INCH/GM PACKET TOPICAL SCH (14:35)
[2023-06-28 15:29] LABS: Large Platelets Present
[2023-06-28 15:30] LABS: RBC Morphology Normal
[2023-06-28] MEDS: PANTOPRAZOLE 40 MG TABLET PO SCH (17:15)
[2023-06-28] MEDS: carvediloL 12.5 MG TAB PO SCH (17:15)
[2023-06-29] MEDS: LOSARTAN 50 MG TAB PO SCH (08:53)
[2023-06-29] MEDS: SPIRONOLACTONE 25 MG TAB PO SCH (08:53)
[2023-06-29] MEDS: ASPIRIN 325 MG TAB PO SCH (08:53)
[2023-06-29 09:56] LABS: Chol/HDL Ratio 6.32 Ratio; HDL Cholesterol 27.7 mg/dL (40.00-60.00); VLDL Calculation 91.4 mg/dL (5.00-40.00)
[2023-06-29 10:09] LABS: LDL Cholesterol,Direct Reflex 89.9 mg/dL (0.00-129.00)
[2023-06-29 17:15] LABS: C Reactive Protein <0.5 mg/dL (<1.0)
[2023-06-29 17:21] LABS: NT-Pro-B-Type Natriuretic Pept <20 pg/mL
--- NOTE | 2023-06-29 18:28 | HP ---
HISTORY AND PHYSICAL CHIEF COMPLAINT: Chest pain. HISTORY OF PRESENT ILLNESS: This is another frequent admission for this 47-year-old gentleman. He has had a longstanding history over the last year or 2 of intermittent chest pain. He also had frequent PVCs, which are asymptomatic and seem to be lessened now. He recently had a pacemaker placed. He continued to have chest pain, which he describes as being in the left anterior chest and not associated with diaphoresis, shortness of breath, exertion, etc. He has had no fever, chills, hemoptysis, or pleuritic symptoms, etc. He came back in the emergency room on the day of admission complaining of chest pain again and was admitted. Other etiologies for his pain have to be explosive. REVIEW OF SYSTEMS: He denies any other symptoms. Blood pressure does fluctuate. Past medical history, family history, personal and social histories are all otherwise unremarkable or noncontributory and unchanged. PHYSICAL EXAMINATION: VITAL SIGNS: Normal. HEAD, EARS, EYES, NOSE, MOUTH, AND THROAT: Normal. CHEST: Clear. CARDIAC: Demonstrated sinus rhythm. Chest wall is nontender. ABDOMEN: Slightly protuberant, soft, and nontender without any visceromegaly or masses. Bowel sounds are present. EXTREMITIES: Normal. NEUROLOGICAL: He is intact. DIAGNOSES: He was admitted to the hospital with diagnoses: 1. Recurrent chest pain. 2. History of frequent premature ventricular contractions. PLAN: 1. Bed rest. 2. IV fluids. 3. Serial troponins and EKGs. 4. RHEA, CRP, and BNP. MMODL / IJN: [id number] /
--- NOTE | 2023-06-30 04:10 | PN ---
PROGRESS NOTE CHIEF COMPLAINT: Chest pain. HISTORY GENTLEMAN: This gentleman is still complaining of left-sided anterior chest pain on and off. So far, all the studies have been normal. Inflammatory markers have been ordered. We will increase activity. If all the studies are normal, he will be discharged. PLAN: He will be referred out of town for further workup. MMODL / IJN: [id number] /
[2023-06-30 08:24] VITALS: BP 129/76; PULSE 67; RESP 16; TEMP 98.2
--- NOTE | 2023-06-30 23:49 | DS ---
DISCHARGE SUMMARY CHIEF COMPLAINT: Chest pain. HISTORY OF PRESENT ILLNESS AND PHYSICAL EXAM: Details of this man's history and physical can be found in the initial workup. LABORATORY STUDIES: While he was in the hospital, he had laboratory studies, details of which can be found in the laboratory section of his chart. COURSE IN THE HOSPITAL: After admission, he was placed on bedrest, started on intravenous fluids and had serial EKGs and enzymes. They were all normal. Inflammatory markers were ordered and these also were normal. He is asymptomatic and all his studies were negative and it was felt that he could be discharged on the . He will follow up in the office this week. He will go home on his usual medications. He has requested to be referred out of town for further evaluation and this is being arranged. FINAL DIAGNOSES: 1. Chest pain. 2. History of hypertension. 3. History of PVCs. OPERATIONS: None. CONSULTATION: None. He is improved. MMEBONY / TAYN: [id number] /
[2023-07-02 18:50] LABS: ANA Pattern Speckled
[2023-07-11] MEDS ORDERED: ERGOCALCIFEROL 1,250 MCG (50,000 IU) CAPSULE PO SCH (09:00)
== END 2023-06-30 13:18 | disposition home or self-care (01) ==
LOC: EC 12:25 → 6NMEDSUR 13:55
PROVIDERS: ADMIT Family Medicine; ATTEND Family Medicine
DX: R07.89 Other chest pain (principal); I10 Essential (primary) hypertension; I49.3 Ventricular premature depolarization; Z82.49 Family history of ischemic heart disease and other diseases of the circulatory system; Z83.3 Family history of diabetes mellitus; F17.200 Nicotine dependence, unspecified, uncomplicated
CPT/HCPCS: 36415; 94760; 93005; 85379 ×2; 83880; 80061; 80053; 83690; 83735; 84484; 85025; 85610; 85730; 86140; 83721; 86038; 86039; 71046; G0378 ×3

== ENCOUNTER 2023-07-09 23:47 | Emergency (ER) | payer OTHER ==
--- NOTE | 2023-07-10 00:05 | ED ---
Chest Pain HPI - General Chief Complaint: Chest Pain Stated Complaint: Chest Pain,Hypertension Time Seen by Provider: 07/09/23 23:54 Source: patient Mode of arrival: ambulatory Limitations: no limitations - History of Present Illness Initial Comments: 47-year-old male with a past medical history significant for nonischemic cardiomyopathy, hypertension, PVCs, and recent ablation in [address] Barry presenting to the ED with complaints of chest pain. Reports that he has had intermittent chest pain since his ablation performed in January 2023. Tonight, states he was sitting down when he started to feel pain on the left side of his chest. Pain does not radiate. No associated diaphoresis or nausea/vomiting. Did not take any aspirin or nitro for this. Reports that he has been told not to take aspirin. Denies changes in bowel or bladder habits. Denies abdominal pain. Denies fever or chills. Last stress test was in February 2023 which was negative for ischemia. - Related Data Home Medications Medication Instructions Recorded Confirmed Naproxen [Naprosyn] 500 mg PO BID 07/13/22 06/28/23 Omeprazole [PriLOSEC] 20 mg PO BID 07/13/22 06/28/23 Ergocalciferol [Vitamin D2 (1250 1,250 mcg PO QMONTHLY 02/15/23 06/28/23 Mcg = 54379 Iu)] Spironolactone [Aldactone] 25 mg PO DAILY 02/15/23 06/28/23 Losartan Potassium [Cozaar] 100 mg PO DAILY 03/27/23 06/28/23 carvediloL [Coreg] 25 mg PO BID 03/27/23 06/28/23 Allergies Allergy/AdvReac Type Severity Reaction Status Date / Time blueberry Allergy Anaphylaxis Verified 07/09/23 23:52 grapefruit Allergy Anaphylaxis Verified 07/09/23 23:52 Review of Systems ROS Statement: Those systems with pertinent positive or pertinent negative responses have been documented in the HPI. ROS Other: All systems not noted in ROS Statement are negative. Past Medical History Past Medical History: GERD/Reflux, Hypertension Additional Past Medical History / Comment(s): Hematuria, lower back pain, anxiety, bigeminy rhythm on 07/13/22, cardiac ablation 2022. History of Any Multi-Drug Resistant Organisms: None Reported Additional Past Surgical History / Comment(s): tooth extraction, Heart catheterization (june 2022) Past Anesthesia/Blood Transfusion Reactions: No Reported Reaction Past Psychological History: Anxiety Smoking Status: Former smoker Past Alcohol Use History: None Reported Past Drug Use History: None Reported - Past Family History Mother Family Medical History: Coronary Artery Disease (CAD), Diabetes Mellitus, Renal Disease Additional Family Medical History / Comment(s): CABG Father Family Medical History: Coronary Artery Disease (CAD) Additional Family Medical History / Comment(s): CABG General Exam Limitations: no limitations General appearance: alert, in no apparent distress Eye exam: Present: normal appearance Neck exam: Present: normal inspection Respiratory exam: Present: normal lung sounds bilaterally Cardiovascular Exam: Present: regular rate GI/Abdominal exam: Present: soft, normal bowel sounds, other (Obese). Absent: distended, tenderness, guarding, rebound, rigid Neurological exam: Present: alert, oriented X3 Skin exam: Present: warm, dry Course Vital Signs 07/09/23 07/10/23 07/10/23 23:50 01:00 02:00 Temperature 98.3 F Pulse Rate 89 94 96 Respiratory 18 16 16 Rate Blood Pressure 170/100 139/73 136/75 O2 Sat by Pulse 99 96 95 Oximetry Chest Pain MDM - MDM Was pt. sent in by a medical professional or institution (, PA, OWNER OPERATOR, urgent care, hospital, or [place] [facility] facility...) When possible be specific @ -[No] Did you speak to anyone other than the patient for history (EMS, parent, family, police, friend...)? What history was obtained from this source @ -[No] Did you review nursing and triage notes (agree or disagree)? Why? @ -[I reviewed and agree with nursing and triage notes] Were old charts reviewed (outside hosp., previous admission, EMS record, old EKG, old radiological studies, urgent care reports/EKG's, [place] [facility] records)? Report findings @ -[No old charts were reviewed] Differential Diagnosis (chest pain, altered mental status, abdominal pain women, abdominal pain men, vaginal bleeding, weakness, fever, dyspnea, syncope, headache, dizziness, GI bleed, back pain, seizure, CVA, palpatations, mental health, musculoskeletal)? @ -Differential Chest Pain: Stable Angina, Unstable Angina, STEMI, NSTEMI Aortic Dissection, Pneumothorax, Musculoskeletal, Esophageal Spasm GERD, Cholecystitis, Pancreatitis, Zoster, t his is not meant to be an all-inclusive list. EKG interpreted by me (3pts min.). @ -EKG interpreted by me showing a sinus rhythm with nonspecific findings. No acute ST or T wave changes. Rate of 96 bpm. CA 140, QRS 102, QT/QTc 317/371. X-rays interpreted by me (1pt min.). @ -Chest x-ray interpreted me which revealed no evidence of acute process. CT interpreted by me (1pt min.). @ -[None done] U/S interpreted by me (1pt. min.). @ -[None done] What testing was considered but not performed or refused? (CT, X-rays, U/S, labs)? Why? @ -[None] What meds were considered but not given or refused? Why? @ -[None] Did you discuss the management of the patient with other professionals (professionals i.e. , PA, OWNER OPERATOR, lab, RT, psych nurse, home health care social worker, dye box operator, teacher, real estate officer, pillowcase cutter)? Give summary @ -[No] Was smoking cessation discussed for >3mins.? @ -[No] Was critical care preformed (if so, how long)? @ -[No] Were there social determinants of health that impacted care today? How? (Homelessness, low income, unemployed, alcoholism, drug addiction, transportation, low edu. Level, literacy, decrease access to med. care, long-term, rehab)? @ -[No] Was there de-escalation of care discussed even if they declined (Discuss DNR or withdrawal of care, Hospice)? DNR status @ -[No] What co-morbidities impacted this encounter? (DM, HTN, Smoking, COPD, CAD, Cancer, CVA, ARF, Chemo, Hep., AIDS, mental health diagnosis, sleep apnea, morbid obesity)? @ -[None] Was patient admitted / discharged? Hospital course, mention meds given and route, prescriptions, significant lab abnormalities, going to OR and other pertinent info. @ -Discharge 47-year-old male presents to the ED with complaints of intermittent chest pain since he has had a ablation in 2022 presenting to the ED with complaints of left-sided chest pain onset today. Laboratory studies reviewed. Labs including CBC CMP unremarkable. Troponin x 2 undetectable. Chest x-ray revealed no evidence of acute finding. EKG showed a normal sinus rhythm with no acute ST or T wave changes. Patient discharged home in stable condition with instructions to follow-up with the primary care provider and statue carver. Discussed return precautions with patient who verbalized agreement. Undiagnosed new problem with uncertain prognosis? @ -[No] Drug Therapy requiring intensive monitoring for toxicity (Heparin, Nitro, Insulin, Cardizem)? @ -[No] Were any procedures done? @ -[No] Diagnosis/symptom? @ -Chest pain Acute, or Chronic, or Acute on Chronic? @ -Acute Uncomplicated (without systemic symptoms) or Complicated (systemic symptoms)? @ -Uncomplicated Side effects of treatment? @ -[No] Exacerbation, Progression, or Severe Exacerbation? @ -[No] Poses a threat to life or bodily function? How? (Chest pain, [place], [place], pneumonia, PE, COPD, DKA, ARF, appy, cholecystitis, CVA, Diverticulitis, Homicidal, Suicidal, threat to staff... and all critical care pts) @ -Unlikely Disposition Clinical Impression: Chest pain Disposition: HOME SELF-CARE Condition: Good Instructions (If sedation given, give patient instructions): Chest Pain (ED) Additional Instructions: Please return to the Emergency Department if symptoms worsen or any other concerns. Please follow-up with your PCP and statue carver. Is patient prescribed a controlled substance at d/c from ED?: No Referrals: Rj Segura MD [Primary Care Provider] - 1-2 days Time of Disposition: 04:41
[2023-07-10] MEDS: NITROGLYCERIN SL TABS 0.4 MG TAB SUBLINGUAL STA (00:15)
[2023-07-10 00:40] LABS: Basophils % (A) 0 %; Eosinophils # (A) 0.1 k/uL (0-0.7); Eosinophils % (A) 1 %; HCT 35.7 % (39.0-53.0); Lymphocytes # (A) 1.1 k/uL (1.0-4.8); Lymphocytes % (A) 19 %; MCH 28.3 pg (25.0-35.0); MCHC 33.6 g/dL (31.0-37.0); MCV 84.3 fL (80.0-100.0); Mean Platelet Volume 10.6; Monocytes # (A) 0.3 k/uL (0-1.0); Monocytes % (A) 6 %; Neutrophils % (A) 72 %; Platelet Count 132 k/uL (150-450); RBC 4.23 m/uL (4.30-5.90); RDW 13.5 % (11.5-15.5); WBC 5.6 k/uL (3.8-10.6)
[2023-07-10 00:58] LABS: INR 0.9 (<1.2); Prothrombin Time 10.2 sec (10.0-12.5)
[2023-07-10 01:03] LABS: ALT 30 U/L (4-49); AST 28 U/L (17-59); African American GFR (CKD) >90 (>60 ml/min/1.73 sqM); Albumin 4.1 g/dL (3.5-5.0); Alkaline Phosphatase 65 U/L (38-126); Anion Gap 9 mmol/L; Blood Urea Nitrogen 18 mg/dL (9-20); Calcium 8.8 mg/dL (8.4-10.2); Carbon Dioxide 18 mmol/L (22-30); Chloride 112 mmol/L (98-107); Glucose 211 mg/dL (74-99); Magnesium 1.8 mg/dL (1.6-2.3); Non-African American GFR(CKD) >90 (>60 ml/min/1.73 sqM); Potassium 4.5 mmol/L (3.5-5.1); Sodium 139 mmol/L (137-145); Total Bilirubin 0.5 mg/dL (0.2-1.3); Total Protein 7.2 g/dL (6.3-8.2)
--- NOTE | 2023-07-10 03:09 | XR ---
EXAM: XR Chest, 2 Views CLINICAL HISTORY: ITS.REASON XR Reason: Chest Pain TECHNIQUE: Frontal and lateral views of the chest. COMPARISON: 06/24/2023 FINDINGS: Lungs: No consolidation or mass. Pleural space: No effusion. Heart: Unchanged. Bones/joints: No acute findings. IMPRESSION: No acute cardiopulmonary process.
[2023-07-10 05:29] VITALS: BP 135/85; PULSE 84; RESP 18; TEMP 98
== END 2023-07-10 04:55 | disposition home or self-care (01) ==
LOC: EC 23:47
DX: R07.89 Other chest pain (principal); Z87.891 Personal history of nicotine dependence; Z91.018 Allergy to other foods
CPT/HCPCS: 36415; 71046; 80053; 83735; 84484; 85025; 85610; 85730; 99285

== ENCOUNTER → 2023-07-24 | Outpatient (CLI) | payer OTHER ==
--- NOTE | 2023-07-24 15:00 | P.SLEEP ---
History of Present Illness DATE: 07/24/2023 CONSULTATION/NEW PATIENT EVALUATION HISTORY OF PRESENT ILLNESS/SLEEP-WAKE EVALUATION: 47-year-old gentleman had b een evaluated in the sleep center for possible obstructive sleep apnea hypopnea syndrome. Patient has history of obstructive sleep apnea diagnosed in another institution about 5 years ago, but for different reasons he is not on any treatment. SLEEP SCHEDULE: Usually sleep schedule from 11 PM to 5 AM, but according to patient his sleep schedule may significantly change day by day. FALLING ASLEEP: Patient has difficulties with falling asleep, has TV set in bedroom. DURING SLEEP: Patient has snoring and wakes up from sleep several times with nocturia. No history of hypnogogical hallucinations, sleep paralysis, or cataplexy. DURING THE DAY/WAKE STATE: In the morning patient wake up tired, falling asleep during the day. [place] sleepiness scale is increased to 12. Patient may take up to 2 naps during the day at the afternoon time. PAST MEDICAL HISTORY: Hypertension, cardiac arrhythmia, acid reflux, back problems. PAST SURGICAL HISTORY: Tonsillectomy, cardiac ablation for arrhythmia. MEDICATIONS: Please see below. SOCIAL HISTORY: Please see below. FAMILY HISTORY: Heart problems, diabetes, hypertension. REVIEW OF SYSTEMS: Snoring, multiple awakenings from sleep, sleepiness during the day. No fevers. No double vision. No recent chest pain. No shortness of breath. No abdominal pain. No bleeding episodes. No blood in urine. No seizure episodes. PHYSICAL EXAMINATION: GENERAL: A pleasant patient without any distress. VITAL SIGNS: Please see below, weight 372 pounds, BMI 46.4. HEENT: PERRLA, EOMI. Evaluation of oropharynx showed tongue protrudes midline, low position of soft palate Mallampati 3. NECK: Supple. No JVD. Thyroid is not palpable. 20 inches in circumference. LUNGS: Clear to percussion and to auscultation. Good air exchange. No wheezing or rhonchi. HEART: S1, S2 regular. No murmurs, gallops or rubs. ABDOMEN: Soft and nontender. Bowel sounds are present. No organomegaly appreciated. Obese EXTREMITIES: No clubbing or cyanosis. BATTERY CONTAINER TESTER ALUMINUM: Awake, alert, and oriented x3. Cranial nerves 2 to 7 intact. There is no fasciculation or atrophy noted. No focal deficits observed. ASSESSMENT: 1. Snoring, multiple awakenings from sleep, small oropharyngeal airspace low position of soft palate Mallampati 3, wide neck 20 inches in circumference, sleepiness with [place] Sleepiness Scale 12. Obstructive sleep apnea hypopnea syndrome. 2. Obesity, BMI 46.4. 3. History of cardiac arrhythmia, status post cardiac ablation. 4. Acid reflux. 5 back problems. 6 . Status post tonsillectomy in childhood. PLAN: 1. Polysomnography for evaluation of patient's breathing during sleep. 2. Following plan after reading sleep study 3. Preferable position during sleep on the side. 4. No driving if patient feels any sleepiness. Patient is aware of civil and criminal liability for unsafe driving. 5. Sleep hygiene with regular sleep time for at least 7.5-8 hours. 6. Watching and losing weight. Thank you very much for referring this patient for consultation. Sincerely, Blayne Lerma MD, PhD, FAASM. Diplomat of [place] [employer], Sleep Medicine Board by [place] [employer] [place] [employer] Microbiology Technologist of [facility] [place] Past Medical History Past Medical History: GERD/Reflux, Hypertension Additional Past Medical History / Comment(s): Hematuria, lower back pain, anxiety, bigeminy rhythm on 07/13/22, cardiac ablation 2022. History of Any Multi-Drug Resistant Organisms: None Reported Past Surgical History: Heart Catheterization Additional Past Surgical History / Comment(s): tooth extraction, Heart ca theterization (june 2022). ablation Feb 19, 2023 Past Anesthesia/Blood Transfusion Reactions: No Reported Reaction Additional Past Anesthesia/Blood Transfusion Reaction / Comment(s): unk family hx Past Psychological History: Anxiety Smoking Status: Former smoker Past Alcohol Use History: None Reported Additional Past Alcohol Use History / Comment(s): quit smoking 1998 Past Drug Use History: None Reported - Past Family History Mother Family Medical History: Coronary Artery Disease (CAD), Diabetes Mellitus, Renal Disease Additional Family Medical History / Comment(s): CABG Father Family Medical History: Coronary Artery Disease (CAD) Additional Family Medical History / Comment(s): CABG Medications and Allergies Home Medications Medication Instructions Recorded Confirmed Type Naproxen [Naprosyn] 500 mg PO BID 07/13/22 06/28/23 History Omeprazole [PriLOSEC] 20 mg PO BID 07/13/22 07/24/23 History Ergocalciferol [Vitamin D2 (1250 1,250 mcg PO QMONTHLY 02/15/23 06/28/23 History Mcg = 88863 Iu)] Spironolactone [Aldactone] 25 mg PO DAILY 02/15/23 07/24/23 History Losartan Potassium [Cozaar] 100 mg PO DAILY 03/27/23 07/24/23 History carvediloL [Coreg] 25 mg PO BID 03/27/23 07/24/23 History Cholecalciferol (Vitamin D3) 1,250 mcg PO DAILY 07/24/23 07/24/23 History [Vitamin D3 (1250 Mcg = 50,000 Iu)] Allergies Allergy/AdvReac Type Severity Reaction Status Date / Time blueberry Allergy Anaphylaxis Verified 07/09/23 23:52 grapefruit Allergy Anaphylaxis Verified 07/09/23 23:52 Physical Exam Vitals: Vital Signs Temp Pulse Resp BP Pulse Ox 07/24/23 14:29 98.2 F 70 16 138/82 96 Intake and Output 07/23/23 07/24/23 07/24/23 22:59 06:59 14:59 Other: Weight 168.736 kg Sleep Note - Sleep Data ESS Total: 12 - Sleep Note Sleep Note: Temperature: 98.2 F Pulse Rate: 70 Respiratory Rate: 16 Blood Pressure: 138/82 SpO2: 96 Height: 6 ft 3 in Weight: 168.736 kg BMI: Neck Circumference: 20
[2023-07-24 15:21] VITALS: BP 138/82; PULSE 70; RESP 16; TEMP 98.2
== END ==
LOC: 3 N SLEEP 13:57
PROVIDERS: ATTEND Internal Medicine
DX: G47.33 Obstructive sleep apnea (adult) (pediatric) (principal); K21.9 Gastro-esophageal reflux disease without esophagitis; M53.9 Dorsopathy, unspecified; G47.10 Hypersomnia, unspecified; Z98.890 Other specified postprocedural states; Z90.89 Acquired absence of other organs; Z86.79 Personal history of other diseases of the circulatory system; Z68.42 Body mass index [BMI] 45.0-49.9, adult; Z91.018 Allergy to other foods
CPT/HCPCS: 99211

== ENCOUNTER → 2023-07-25 | Outpatient (CLI) | payer OTHER ==
--- NOTE | 2023-07-27 15:11 | CT ---
EXAMINATION TYPE: CT chest wo/w con DATE OF EXAM: 07/25/2023 COMPARISON: None HISTORY: left sided chest pain CT DLP: 1568 mGycm, Automated exposure control for dose reduction was used. CONTRAST: Performed injected with 100 mL of Isovue 300. TECHNIQUE: Axial images were obtained at 5 mm thick sections. Reconstructed images are reviewed on [employer] computer in the coronal plane. FINDINGS: Portion of the thyroid visualized is normal. No suspicious lung nodules or focal infiltrates are present. No enlarged mediastinal or hilar adenopathy is evident. The ascending aorta diameter at the level o f the main pulmonary artery is 2.8 cm. The main pulmonary artery diameter at the bifurcation is 3.2 cm. Correlate for pulmonary hypertension Limited CT sections are obtained through the upper abdomen. Abdomen is essentially unremarkable. No abnormal enhancement is evident. No suspicious abnormality account for left-sided chest pain ident ified. IMPRESSION: 1. Normal pre and postcontrast CT chest.
== END | disposition home or self-care (01) ==
LOC: RADCTMAIN 12:58
PROVIDERS: ATTEND Family Medicine
DX: R07.9 Chest pain, unspecified (principal)
CPT/HCPCS: 71270; Q9967

== ENCOUNTER 2023-08-20 19:13 | Outpatient (CLI) | payer OTHER | END 2023-08-21 05:30 | disposition home or self-care (01) | LOC: 3 N SLEEP 19:13 | PROVIDERS: ATTEND Internal Medicine | DX: G47.33 Obstructive sleep apnea (adult) (pediatric) (principal); E66.9 Obesity, unspecified; K21.9 Gastro-esophageal reflux disease without esophagitis; M53.9 Dorsopathy, unspecified; Z86.79 Personal history of other diseases of the circulatory system; Z98.890 Other specified postprocedural states; Z90.89 Acquired absence of other organs; Z68.42 Body mass index [BMI] 45.0-49.9, adult; Z87.891 Personal history of nicotine dependence; Z91.018 Allergy to other foods | CPT/HCPCS: 95810 ==

== ENCOUNTER 2023-08-27 19:23 | Outpatient (CLI) | payer OTHER ==
--- NOTE | 2023-08-28 14:49 | P.PCN ---
Description of Procedure: CLINICAL: Titration with positive air pressure has been done for correction of respiratory abnormalities during sleep. DESCRIPTION OF PROCEDURE: The standard montage for clinical polysomnography included the electroencephalogram, the electrocardiogram, the mentalis surface electromyography and Lead II cardiography. The respiratory battery consisted of measurements of nasal /buccal air flow, pressure transducer measurements from the nose, thoracic and /or abdominal effort and intercostal surface electromyography. Video monitoring has been done to check for any parasomnia events. Nocturnal oxyhemoglobin saturations were obtained by finger oximetry. Step-beth titration with positive airway pressure was utilized to control respiratory events. Raw data of sleep recording has been reviewed and is adequate. RESULTS: Sleep efficiency was normal 92.3%. Latency to sleep onset was normal 20.5 minutes.]. Sleep architecture showed stage N1 slightly short 4.3%, Delta sleep was absent 0%, REM sleep was in high range of normal 29.4%. Heart rate was minimum 53 BPM, maximum 66 BPM, average 59 BPM. EMG showed 4.5 periodic limb movements per hour with 1.4 micriarousals per hour. PAP titration have been done with CPAP up to the pressure 8 cm H2O. The best results were at the pressure 7 cm H2O. Apnea hypopnea index reduced to 3.0. IMPRESSION: 1. Obstructive sleep apnea hypopnea syndrome on controle with PAP treatment. 2. No significant periodic limb movements have been documented. Please see other impressions from consultation. PLAN: 1. The patient will have treatment with positive air pressure equipment with the level of pressure AutoPAP 5-10 cm H2O and should use it every night for the whole night. 2. Watching and losing weight. 3. Sleep hygiene with regular time in bed for at least 8 hours. 4. No driving if feeling any sleepiness. 5. I will see the patient for follow up visit to explain the results of the te st, recommendations, check compliance with treatment and make any necessary adjustment related to mask fitting, pressure and humidification. Thank you very much for allowing me to participate in the management of your patient. Sincerely, Blayne Lerma MD, PhD, FAASM Diplomat of [place] [employer] Sleep Medicine Board of [place] [employer] Implementation Director of [facility] [place]
== END 2023-08-28 04:20 | disposition home or self-care (01) ==
LOC: 3 N SLEEP 19:23
PROVIDERS: ATTEND Internal Medicine
DX: G47.33 Obstructive sleep apnea (adult) (pediatric) (principal); E66.9 Obesity, unspecified; K21.9 Gastro-esophageal reflux disease without esophagitis; M53.9 Dorsopathy, unspecified; Z98.890 Other specified postprocedural states; Z90.89 Acquired absence of other organs; Z86.79 Personal history of other diseases of the circulatory system; Z68.42 Body mass index [BMI] 45.0-49.9, adult; Z87.891 Personal history of nicotine dependence; Z91.018 Allergy to other foods
CPT/HCPCS: 95811

== ENCOUNTER → 2023-11-28 | Outpatient (CLI) | payer OTHER ==
[2023-11-28 14:30] VITALS: BP 109/74; PULSE 71; RESP 20; TEMP 97.7
--- NOTE | 2023-11-28 14:52 | P.PROGSL ---
Subjective DATE: 11/28/2023 FOLLOW UP VISIT. Patient with obstructive sleep apnea hypopnea syndrome return to sleep center for follow-up visit. Recently patient had sleep study which documented obstructive sleep apnea hypopnea syndrome. Patient was initiated on PAP therapy and today is first visit after treatment was started. I explained results of sleep studies to the patient in details Patient was able to use PAP equipment, but not every night for the whole night. Patient had problems with the mask, but recently his mask was changed and now he is able to use equipment without significant problems. The patient does not have significant problems with the mask, PAP pressure and humidification. [place] sleepiness scale is increased to 13. I checked information from PAP unit. PAP unit pressure 5-10, average 8.3 cm H2O. Usage is 40% and 17% % for more then 4 hours, average 3.5 hours per night. Leak is 6.0 l/m, which is in acceptable range. Apnea Hypopnea Index is 1.3, which is normal. MEDICATIONS: Please see below During physical exam: GENERAL: A pleasant patient without any distress. VITAL SIGNS: Please see below, weight 378.0 pounds. HEENT: PERRLA, EOMI.low position of soft palate, Mallapati 3. NECK: Supple. No JVD. LUNGS: Clear to percussion and to auscultation. Good air exchange. No wheezing or rhonchi. HEART: S1, S2 regular. ABDOMEN: Soft and nontender. Obese EXTREMITIES: No clubbing or cyanosis. NASCAR RACER: Awake, alert, and oriented x3. No focal deficit. Impressions: 1. Obstructive sleep apnea-hypopnea syndrome. Normal respiration while using CPAP equipment. At the present time patient is not compliant with treatment, promised to start using CPAP unit every night for the whole night. 2. Obesity. 3. History of cardiac arrhythmia, status post cardiac ablation. 4. Acid reflux. 5. Back problems. 6. Status post tonsillectomy in childhood. Heated humidifier was checked and adjusted. Plan: 1. Continue using PAP equipment every night for the whole night. We will extend trial for another 90 days. Patient promised to use CPAP equipment every night for the whole night. 2. To change air filter at least 1-2 times per month. 3. PAP unit should stay lower then position of the head. 4. Advised patient to remove all remaining water from humidifier canister daily and make it dry after each usage. Refill canister with fresh distilled water before each usage. 5. Sleep hygiene with regular time in bed for at least 8 hours. 6. Precautions related to driving. No driving if feel any sleepiness. 7. I will maintain prescription for PAP supplies including mask, tube, filters. 8. Follow up visit in 2 months or earlier if patient has any problems. 9. Watching and losing weight. Thank you very much for allowing me to participate in the management of your patient. Blayne Lerma MD, PhD, FAASM. Diplomat of [place] [employer], Sleep Medicine Board by [place] [employer] Commercial Hvac Technician of [facility] [place] cc: Rj Segura MD Objective - Vital Signs Vital Signs: Vital Signs Temp 97.7 F 11/28/23 14:29 Pulse 71 11/28/23 14:29 Resp 20 11/28/23 14:29 BP 109/74 11/28/23 14:29 Pulse Ox 97 11/28/23 14:29 FiO2 Intake & Output 11/27/23 11/28/23 11/28/23 18:59 06:59 18:59 Weight 171.458 kg Home Medications: Home Medications Medication Instructions Recorded Confirmed Type Naproxen [Naprosyn] 500 mg PO BID 07/13/22 06/28/23 History Omeprazole [PriLOSEC] 20 mg PO BID 07/13/22 07/24/23 History Ergocalciferol [Vitamin D2 (1250 1,250 mcg PO QMONTHLY 02/15/23 06/28/23 History Mcg = 55975 Iu)] Spironolactone [Aldactone] 25 mg PO DAILY 02/15/23 07/24/23 History Losartan Potassium [Cozaar] 100 mg PO DAILY 03/27/23 07/24/23 History carvediloL [Coreg] 25 mg PO BID 03/27/23 07/24/23 History Cholecalciferol (Vitamin D3) 1,250 mcg PO DAILY 07/24/23 07/24/23 History [Vitamin D3 (1250 Mcg = 50,000 Iu)]
== END ==
LOC: 3 N SLEEP 14:00
PROVIDERS: ATTEND Internal Medicine
DX: G47.33 Obstructive sleep apnea (adult) (pediatric) (principal); E66.9 Obesity, unspecified; M53.9 Dorsopathy, unspecified; K21.9 Gastro-esophageal reflux disease without esophagitis; Z98.890 Other specified postprocedural states; Z90.89 Acquired absence of other organs; Z86.79 Personal history of other diseases of the circulatory system; Z99.89 Dependence on other enabling machines and devices; Z91.018 Allergy to other foods
CPT/HCPCS: 99212

== ENCOUNTER 2023-12-18 18:47 | Emergency (ER) | payer OTHER ==
[2023-12-18 19:04] VITALS: RESP 18
--- NOTE | 2023-12-18 20:23 | CT ---
EXAMINATION TYPE: CT brain wo con CT DLP: 1301.4 mGycm, Automated exposure control for dose reduction was used. DATE OF EXAM: 12/18/2023 7:55 PM COMPARISON: None. CLINICAL INDICATION: Male, 48 years old with history of head trauma, vision disturbance, head injury TECHNIQUE: Brain: Axial CT images of the brain were obtained with coronal and sagittal reformats created and rev iewed. Contrast used: None. Oral contrast used: None. FINDINGS: Brain: Extra-axial spaces: No abnormal extra-axial fluid collections. Ventricular system: Within normal limits Cerebral parenchyma: No acute intraparenchymal hemorrhage or mass effect. The jessica-white junction is well differentiated. Cerebellum: Unremarkable. Mass effect: No evidence of midline shift. Intracranial vasculature: unremarkable Soft tissues: Posterior scalp edema. Small laceration present. Calvarium/osseous structures: No depressed skull fracture. Paranasal sinuses and mastoid air cells: Mild scattered paranasal sinus disease. Visualized orbits: Orbital contents are intact. IMPRESSION: No acute intracranial process. Posterior scalp edema with laceration. No evidence of fracture. [facility], , 12/18/2023 8:21 PM
--- NOTE | 2023-12-18 20:31 | ED ---
Head Injury HPI - General Chief complaint: Head Injury Stated complaint: lac on head Time Seen by Provider: 12/18/23 19:20 Source: patient Mode of arrival: ambulatory Limitations: no limitations - History of Present Illness Initial comments: 48-year-old male presenting with chief complaint of head injury. Patient states that earlier this afternoon he was doing some work when he hit his head on a duct in the basement. He had some swelling to the area and minor laceration. Unsure when his last tetanus was. No loss of consciousness or blood thinners. Patient states that later on he had a headache and was having some vision disturbances so he came in for evaluation. No vomiting. No dizziness. No numbness tingling or weakness. No neck pain. - Related Data Home Medications Medication Instructions Recorded Confirmed Naproxen [Naprosyn] 500 mg PO BID 07/13/22 06/28/23 Omeprazole [PriLOSEC] 20 mg PO BID 07/13/22 07/24/23 Ergocalciferol [Vitamin D2 (1250 1,250 mcg PO QMONTHLY 02/15/23 06/28/23 Mcg = 74384 Iu)] Spironolactone [Aldactone] 25 mg PO DAILY 02/15/23 07/24/23 Losartan Potassium [Cozaar] 100 mg PO DAILY 03/27/23 07/24/23 carvediloL [Coreg] 25 mg PO BID 03/27/23 07/24/23 Cholecalciferol (Vitamin D3) 1,250 mcg PO DAILY 07/24/23 07/24/23 [Vitamin D3 (1250 Mcg = 50,000 Iu)] Allergies/Adverse reactions: Allergies Allergy/AdvReac Type Severity Reaction Status Date / Time blueberry Allergy Anaphylaxis Verified 07/09/23 23:52 grapefruit Allergy Anaphylaxis Verified 07/09/23 23:52 Review of Systems ROS Statement: Those systems with pertinent positive or pertinent negative responses have been documented in the HPI. ROS Other: All systems not noted in ROS Statement are negative. Past Medical History Past Medical History: GERD/Reflux, Hypertension Additional Past Medical History / Comment(s): Hematuria, lower back pain, anxiety, bigeminy rhythm on 07/13/22, cardiac ablation 2022. History of Any Multi-Drug Resistant Organisms: None Reported Past Surgical History: Heart Catheterization Additional Past Surgical History / Comment(s): tooth extraction, Heart catheterization (june 2022). ablation Feb 19, 2023 Past Anesthesia/Blood Transfusion Reactions: No Reported Reaction Additional Past Anesthesia/Blood Transfusion Reaction / Comment(s): unk family hx Past Psychological History: Anxiety Smoking Status: Former smoker Past Alcohol Use History: None Reported Past Drug Use History: None Reported - Past Family History Mother Family Medical History: Coronary Artery Disease (CAD), Diabetes Mellitus, Renal Disease Additional Family Medical History / Comment(s): CABG Father Family Medical History: Coronary Artery Disease (CAD) Additional Family Medical History / Comment(s): CABG General Exam Limitations: no limitations General appearance: alert, in no apparent distress Head exam: Present: normocephalic Expanded Head exam: Present: hematoma (With superficial scabbed over laceration) Eye exam: Present: normal appearance, PERRL, EOMI Pupils: Present: normal accommodation Neck exam: Present: normal inspection. Absent: meningismus Respiratory exam: Absent: respiratory distress Cardiovascular Exam: Present: regular rate Neurological exam: Present: alert, oriented X3 Expanded Eye Response: (4) open spontaneously Motor Response: (6) obeys commands Verbal Response: (5) oriented Cindy Total: 15 Psychiatric exam: Present: normal affect, normal mood Skin exam: Present: warm, dry Course Vital Signs 12/18/23 12/18/23 19:02 20:44 Temperature 98.4 F 98.1 F Pulse Rate 76 78 Respiratory 18 18 Rate Blood Pressure 161/98 162/98 O2 Sat by Pulse 98 96 Oximetry Medical Decision Making - Medical Decision Making Was pt. sent in by a medical professional or institution (, PA, LOWERATOR OPERATOR, urgent care, hospital, or halfway...) When possible be specific @ -No Did you speak to anyone other than the patient for history (EMS, parent, family, police, friend...)? What history was obtained from this source @ -No Did you review nursing and triage notes (agree or disagree)? Why? @ -I reviewed and agree with nursing and triage notes Were old charts reviewed (outside hosp., previous admission, EMS record, old EKG, old radiological studies, urgent care reports/EKG's, halfway records)? Report findings @ -No old charts were reviewed Differential Diagnosis (chest pain, altered mental status, abdominal pain women, abdominal pain men, vaginal bleeding, weakness, fever, dyspnea, syncope, headache, dizziness, GI bleed, back pain, seizure, CVA, palpatations, mental health, musculoskeletal)? @ -Differential includes uncomplicated head injury, concussion, fracture, hemorrhage, this is not an all-inclusive list EKG interpreted by me (3pts min.). @ -As above X-rays interpreted by me (1pt min.). @ -None done CT interpreted by me (1pt min.). @ -CT shows no acute intracranial process. Posterior scalp edema with laceration. No evidence of fracture U/S interpreted by me (1pt. min.). @ -None done What testing was considered but not performed or refused? (CT, X-rays, U/S, labs)? Why? @ -None What meds were considered but not given or refused? Why? @ -None Did you discuss the management of the patient with other professionals (professionals i.e. , PA, LOWERATOR OPERATOR, lab, RT, psych nurse, sexual assault social worker, head cd reactor operator, teacher, major gifts officer, block and case maker)? Give summary @ -No Was smoking cessation discussed for >3mins.? @ -No Was critical care preformed (if so, how long)? @ -No Were there social determinants of health that impacted care today? How? (Homelessness, low income, unemployed, alcoholism, drug addiction, transportation, low edu. Level, literacy, decrease access to med. care, intermediate, rehab)? @ -No Was there de-escalation of care discussed even if they declined (Discuss DNR or withdrawal of care, Hospice)? DNR status @ -No What co-morbidities impacted this encounter? (DM, HTN, Smoking, COPD, CAD, Cancer, CVA, ARF, Chemo, Hep., AIDS, mental health diagnosis, sleep apnea, morbid obesity)? @ -None Was patient admitted / discharged? Hospital course, mention meds given and route, prescriptions, significant lab abnormalities, going to OR and other pertinent info. @ -48-year-old male presenting with chief complaint of head injury. No loss of consciousness or blood thinners. CT shows no acute intracranial process. Patient has a superficial scabbed over laceration over his hematoma, tetanus is updated. Educated on today's findings and supportive management. Discharged. Follow-up with PCP. Report back to ER with any new or worsening symptoms. Discussed return parameters and answered all questions. Patient conveyed verbal understanding and agreed to the plan. I discussed this case in detail with my attending Undiagnosed new problem with uncertain prognosis? @ -No Drug Therapy requiring intensive monitoring for toxicity (Heparin, Nitro, Insulin, Cardizem)? @ -No Were any procedures done? @ -No Diagnosis/symptom? @ -Head injury Acute, or Chronic, or Acute on Chronic? @ -Acute Uncomplicated (without systemic symptoms) or Complicated (systemic symptoms)? @ -Uncomplicated Side effects of treatment? @ -No Exacerbation, Progression, or Severe Exacerbation? @ -No Poses a threat to life or bodily function? How? (Chest pain, [place], [place], pneumonia, PE, COPD, DKA, ARF, appy, cholecystitis, CVA, Diverticulitis, Homicidal, Suicidal, threat to staff... and all critical care pts) @ -Unlikely Disposition Clinical Impression: Head injury Disposition: HOME SELF-CARE Condition: Good Instructions (If sedation given, give patient instructions): Head Injury (ED) Additional Instructions: Follow-up with PCP. Report back to ER with any new or worsening symptoms. Is patient prescribed a controlled substance at d/c from ED?: No Referrals: Rj Segura MD [Primary Care Provider] - 1-2 days Time of Disposition: 20:31
[2023-12-18] MEDS: DIPH,PERTUS(ACELL)TETVAC-LF 0.5 ML VIAL IM ONE (20:38)
[2023-12-18 20:47] VITALS: BP 162/98; PULSE 78; TEMP 98.1
== END 2023-12-18 20:45 | disposition home or self-care (01) ==
LOC: EC 18:47
CPT/HCPCS: 70450; 90471; 90715; 99283